=== PATIENT | female | born 1940 | race Caucasian/White ===

== ENCOUNTER 2016-11-05 19:17 | Emergency (ER) | payer MEDICARE ==
[2016-11-05 20:13] LABS: BASOPHILS % (AUTO) 0.4 %; EOSINOPHILS # (AUTO) 0.1 10^3/uL (0.0-0.7); EOSINOPHILS % (AUTO) 0.7 %; HCT - HEMATOCRIT 35.5 % (37.0-47.0); HGB - HEMOGLOBIN 12.1 g/dL (12.0-16.0); LYMPHOCYTES # (AUTO) 1.7 10^3/uL (1.5-3.5); LYMPHOCYTES % (AUTO) 17.6 %; MEAN CORPUSCULAR HEMOGLOBIN 29.5 pg (27.0-31.0); MEAN CORPUSCULAR HGB CONC 34.2 g/dL (32.0-36.0); MEAN CORPUSCULAR VOLUME 86.3 fL (81.0-99.0); MEAN PLATELET VOLUME 9.5 fL (7.9-10.8); MONOCYTES # (AUTO) 0.9 10^3/uL (0.0-1.0); MONOCYTES % (AUTO) 9.4 %; NEUTROPHILS # (AUTO) 6.7 10^3/uL (1.5-6.6); NEUTROPHILS % (AUTO) 71.9 %; RED BLOOD COUNT 4.11 10^6/uL (4.20-5.40); RED CELL DISTRIBUTION WIDTH 13.6 % (12.0-15.0); UNCORRECTED WHITE BLOOD COUNT 9.4 x10^3/uL; WHITE BLOOD COUNT 9.4 x10^3/uL (4.8-10.8)
[2016-11-05 20:19] LABS: CALCIUM 9.5 mg/dL (8.5-10.3); POTASSIUM 4.6 mmol/L (3.5-5.0)
[2016-11-05 20:20] LABS: BILIRUBIN,URINE NEGATIVE (NEGATIVE); PH,URINE 7.5 PH (5.0-7.5)
[2016-11-05 20:21] LABS: UA CHARGE (STRIP ONLY) YES; UR CULTURE IF IND NOT INDICATED
--- NOTE | 2016-11-05 21:06 | ED Physician Documentation ---
PD HPI CHEST PAIN - Stated complaint Stated Complaint: CHEST PX/DENIS - Chief complaint Chief Complaint: Cardiac - History obtained from History obtained from: Patient - History of Present Illness Timing - onset: Enter time (15:00), Today Timing - onset during: Light activity Timing - duration: Hours Timing - details: Gradual onset Pain level now: 8 Quality: Pain Location: Substernal, Left chest Radiation: Back, Other (head) Improved by: Nothing Worsened by: Other (no exacerbating factors) Associated symptoms: Nausea. No: Shortness of air, Vomiting, Palpitations Similar symptoms before: Has not had sx before Recently seen: Not recently seen - Additional information Additional information: 3 PM onset of low back pain, subsequently developed generalized headache and mid /left chest pain. Review of Systems Constitutional: denies: Fever, Chills, Sweats Cardiac: reports: Chest pain / pressure. denies: Palpitations, Pedal edema, Calf pain Respiratory: denies: Dyspnea GI: reports: Abdominal Pain, Nausea. denies: Vomiting : denies: Dysuria, Frequency Neurologic: reports: Headache. denies: Generalized weakness, Focal weakness, Numbness PD PAST MEDICAL HISTORY - Past Medical History Past Medical History: Yes Cardiovascular: Hypertension, High cholesterol, Angina Respiratory: None Neuro: None Endocrine/Autoimmune: None GI: GERD, Ulcers RAILROAD HAND: None : None HEENT: None Psych: None Musculoskeletal: Osteoarthritis Derm: None - Past Surgical History Past Surgical History: Yes General: Cholecystectomy, Hiatal hernia repair Ortho: Knee replacement /RAILROAD HAND: Hysterectomy - Present Medications Home Medications: Ambulatory Orders Medication Instructions Recorded Confirmed Nifedipine [Nifedipine ER] 60 mg PO DAILY 03/12/14 11/05/16 Nitroglycerin [Nitrostat] 0.4 mg SL Q5MIN PRN 03/12/14 11/05/16 Alendronate Sodium 70 mg PO Q7D 11/27/15 11/05/16 Aspirin 81 mg ORAL DAILY 11/05/16 11/05/16 Losartan [Cozaar] 50 mg ORAL DAILY 11/05/16 11/05/16 Mirtazapine 30 mg ORAL QPM 11/05/16 11/05/16 Sucralfate 1 gm PO TID 11/05/16 11/05/16 traMADol [Ultram] 50 mg ORAL TID 11/05/16 11/05/16 - Allergies Allergies/Adverse Reactions: Allergies Allergy/AdvReac Type Severity Reaction Status Date / Time No Known Drug Allergies Allergy Verified 11/05/16 19:22 - Social History Does the pt smoke?: No Smoking Status: Never smoker Does the pt drink ETOH?: No Does the pt have substance abuse?: No - Immunizations Immunizations are current?: Yes - POLST Patient has POLST: No PD ED PE NORMAL - Vitals Vital signs reviewed: Yes - General General: Alert and oriented X 3, Well developed/nourished, Other (appears uncomfortable) - HEENT HEENT: PERRL, EOMI, Moist mucous membranes - Neck Neck: Supple, no meningeal sign, No bony TTP - Cardiac Cardiac: RRR, No murmur - Respiratory Respiratory: No respiratory distress, Clear bilaterally - Abdomen Abdomen: Soft, Non distended - Derm Derm: Normal color, Warm and dry - Neuro Neuro: Alert and oriented X 3, supervisor webbing 2-12 intact, No motor deficit, No sensory deficit, Normal speech PD ED PE EXPANDED - Abdomen Abdomen: Tender to palpation, Periumbilical, Left abdomen. No: Rebound, Guarding Results - Vitals Vitals: Vital Signs - 24 hr 11/05/16 11/05/16 11/05/16 19:21 20:18 20:49 Temperature 36.7 C Heart Rate 76 78 76 Respiratory 14 20 20 Rate Blood Pressure 141/64 H 154/62 H 143/62 H O2 Saturation 100 99 98 11/05/16 11/05/16 11/05/16 21:28 22:35 23:15 Temperature 36.5 C Heart Rate 70 71 61 Respiratory 18 16 20 Rate Blood Pressure 164/64 H 158/65 H 154/67 H O2 Saturation 97 95 98 Oxygen O2 Source Room air - EKG (time done) No standard instances Rate: Rate (enter#) (74) Rhythm: NSR [place]: Normal Intervals: Normal [place] QRS: Normal Ischemia: Normal ST segments - Labs Labs: Laboratory Tests 11/05/16 11/05/16 11/05/16 19:30 19:30 19:30 WBC 9.4 RBC 4.11 L Hgb 12.1 Hct 35.5 L MCV 86.3 MCH 29.5 MCHC 34.2 RDW 13.6 Plt Count 240 MPV 9.5 Neut # 6.7 H Lymph # 1.7 [place] # 0.9 Eos # 0.1 Baso # 0.0 Absolute Nucleated RBC 0.00 Nucleated RBCs 0.0 Sodium 139 Potassium 4.6 Chloride 103 Carbon Dioxide 27 Anion Gap 9.0 BUN 25 H Creatinine 1.0 Estimated GFR (MDRD) 54 L Glucose 147 H Calcium 9.5 Troponin I < 0.04 Urine Color Urine Clarity Urine pH Ur Specific [place] Urine Protein Urine Glucose (UA) Urine Ketones Urine Occult Blood Urine Nitrite Urine Bilirubin Urine Urobilinogen Ur Leukocyte Esterase Ur Microscopic Review Urine Culture Comments 11/05/16 20:10 WBC RBC Hgb Hct MCV MCH MCHC RDW Plt Count MPV Neut # Lymph # [place] # Eos # Baso # Absolute Nucleated RBC Nucleated RBCs Sodium Potassium Chloride Carbon Dioxide Anion Gap BUN Creatinine Estimated GFR (MDRD) Glucose Calcium Troponin I Urine Color YELLOW Urine Clarity CLEAR Urine pH 7.5 Ur Specific [place] 1.010 Urine Protein NEGATIVE Urine Glucose (UA) NEGATIVE Urine Ketones NEGATIVE Urine Occult Blood TRACE-INTA Urine Nitrite NEGATIVE Urine Bilirubin NEGATIVE Urine Urobilinogen 0.2 (NORMAL) Ur Leukocyte Esterase NEGATIVE Ur Microscopic Review NOT INDICATED Urine Culture Comments NOT INDICATED - Rads (name of study) CTH Radiology: Prelim report reviewed, See rad report CT A/P Radiology: Prelim report reviewed, See rad report PD MEDICAL DECISION MAKING - ED course Complexity details: reviewed old records, reviewed results, re-evaluated patient , considered differential, d/w patient, d/w family Departure - Departure Disposition: 01 Home, Self Care Clinical Impression: Abdominal pain, Headache Condition: Good Instructions: ED Abdominal Pain Unkn Cause, ED Cephalgia Unspecified Follow-Up: Suraj Butcher MD [Primary Care Provider] - Within 3 Days Discharge Date/Time: 11/05/16 23:20
[2016-11-05] MEDS ORDERED: HYDROmorphone 1 MG/ML SYRINGE IVP STA (21:17)
[2016-11-05] MEDS ORDERED: HYDROmorphone 1 MG/ML SYRINGE ONE (21:28)
[2016-11-05] MEDS ORDERED: IOPAMIDOL-300 100 ML VIAL IVP ONE (21:53)
--- NOTE | 2016-11-05 22:19 | CT Preliminary Report ---
Exam: CT Abdomen/Pelvis W/ IMPRESSION: 1. Marked diverticulosis. 2. Small hepatic cysts or hemangiomata and other chronic or incidental findings. [facility] SITE ID: [id number]
--- NOTE | 2016-11-05 22:20 | CT Preliminary Report ---
Exam: CT Head W/O IMPRESSION: Generalized age-related cortical atrophic changes without evidence of acute intracranial abnormality. [facility] SITE ID: [id number]
--- NOTE | 2016-11-05 22:22 | CT Report ---
EXAM: CT ABDOMEN AND PELVIS EXAM DATE: 11/05/2016 09:56 PM. CLINICAL HISTORY: Abd. Pain (LLQ). COMPARISONS: 12/09/2015. TECHNIQUE: Routine helical CT imaging was performed through the abdomen and pelvis. IV contrast: 100 cc Isovue-300. Enteric contrast: No. Reconstructions: Coronal and sagittal. In accordance with CT protocol optimization, one or more of the following dose reduction techniques w ere utilized for this exam: automated exposure control, adjustment of mA and/or KV based on patient s ize, or use of iterative reconstructive technique. FINDINGS: Lung Bases: Clear. No effusion. Tiny hiatal hernia. At least three-vessel coronary artery calcificati on. Liver: Multiple small cysts or hemangiomata. Otherwise unremarkable. Gallbladder/Bile Ducts: Absent gallbladder. No ductal dilation. Spleen: Normal. Small accessory spleen. Pancreas: Normal. Adrenal Glands: Normal. Kidneys: Normal. No masses or hydronephrosis. Peritoneal Cavity/Bowel: Marked colonic diverticulosis. Redundant sigmoid colon with no definite evid ence of acute diverticulitis. No localized fluid collection or abscess formation. No free fluid, free air, or lymphadenopathy. The appendix is well visualized and normal. Pelvic Organs: Normal. The bladder and visualized pelvic organs are within normal limits. Vasculature: No aneurysms or other significant abnormality. Bones: No significant abnormality. Other: Calcified injection granulomata in the buttocks. IMPRESSION: 1. Marked diverticulosis. 2. Small hepatic cysts or hemangiomata and other chronic or incidental findings. [facility] Referring Provider Line: [phone] SITE ID: [id number]
--- NOTE | 2016-11-05 22:24 | CT Report ---
EXAM: CT HEAD EXAM DATE: 11/05/2016 09:57 PM. CLINICAL HISTORY: Headache. COMPARISON: None. TECHNIQUE: Multiaxial CT images were obtained from the foramen magnum to the vertex. IV contrast: Non e. Reformats: Coronal. In accordance with CT protocol optimization, one or more of the following dose reduction techniques w ere utilized for this exam: automated exposure control, adjustment of mA and/or KV based on patient s ize, or use of iterative reconstructive technique. FINDINGS: Parenchyma: No intraparenchymal hemorrhage. No evidence of mass, midline shift, or CT findings of acu te infarction. Naylor-white differentiation is distinct. Extraaxial Spaces: Normal for age. No subdural or epidural collections identified. Ventricles: The ventricles and cortical sulci are mildly enlarged, consistent with age-related tissue loss. Sinuses: Imaged paranasal sinuses, orbits, and mastoids show no significant abnormality. Bones: No evidence of fracture or calvarial defect. Other: Diffuse chronic microangiopathic white matter changes are evident. Mild intracranial atheroscl erosis is noted. IMPRESSION: Generalized age-related cortical atrophic changes without evidence of acute intracranial abnormality. [facility] Referring Provider Line: [phone] SITE ID: [id number]
[2016-11-05 23:16] VITALS: BP 154/67
== END 2016-11-05 23:20 | disposition home or self-care (01) ==
LOC: ED 19:17
DX: R51 Headache (principal); R07.9 Chest pain, unspecified; R10.9 Unspecified abdominal pain; I10 Essential (primary) hypertension; E78.00 Pure hypercholesterolemia, unspecified; I20.9 Angina pectoris, unspecified; K21.9 Gastro-esophageal reflux disease without esophagitis; Z87.11 Personal history of peptic ulcer disease; M19.90 Unspecified osteoarthritis, unspecified site; Z79.82 Long term (current) use of aspirin
CPT/HCPCS: 36415; 70450; 74177; 80048; 81003; 84484; 85025; 93005; 96374; 99283; 99284; J1170; Q9967; 81001; 87086

== ENCOUNTER 2017-04-05 07:46 | Emergency (ER) | payer MEDICARE ==
--- NOTE | 2017-04-05 08:12 | ED Physician Documentation ---
History of Present Illness - Stated complaint Stated Complaint: BACK/CHEST PX WEAKNESS - Chief complaint Chief Complaint: Cardiac - Additonal information Additional information: hx from pt through family assisting with translation 77 female hx HTN CAD angina has had chest pain L low ant chest for 2 weeks most of the day every day some associated SOA diaphoresis and nausea mild couhg pain described as burning rad to left shoulder some relief with nitro seen at [facility] ER for similar - states had work up and told it was not her heart also concerned about her ongoing poor appaetitie and not eating well - does not seem she is not eating 2/2 pain or nausea etc - she just isnt hungry - this is an ongoing problem not temporally related to the CP she came to the ER for Review of Systems Constitutional: denies: Fever, Chills Cardiac: reports: Chest pain / pressure Respiratory: reports: Dyspnea, Cough GI: reports: Abdominal Pain (LUQ), Nausea Skin: denies: Rash Musculoskeletal: reports: Back pain (L shoulder). denies: Neck pain Neurologic: reports: Generalized weakness Endocrine: denies: Easy bruising / bleeding Immunocompromised: denies: Immunocompromised PD PAST MEDICAL HISTORY - Past Medical History Cardiovascular: Hypertension, High cholesterol, Angina Respiratory: None Neuro: None Endocrine/Autoimmune: None GI: GERD, Ulcers UNIT MANAGER: None : None HEENT: None Psych: None Musculoskeletal: Osteoarthritis Derm: None - Past Surgical History Past Surgical History: Yes General: Cholecystectomy, Hiatal hernia repair Ortho: Knee replacement /UNIT MANAGER: Hysterectomy - Present Medications Home Medications: Ambulatory Orders Medication Instructions Recorded Confirmed NIFEdipine [Nifedipine ER] 60 mg PO DAILY 03/12/14 11/05/16 Nitroglycerin [Nitrostat] 0.4 mg SL Q5MIN PRN 03/12/14 11/05/16 Alendronate Sodium 70 mg PO Q7D 11/27/15 11/05/16 Aspirin 81 mg ORAL DAILY 11/05/16 11/05/16 Losartan [Cozaar] 50 mg ORAL DAILY 11/05/16 11/05/16 Mirtazapine 30 mg ORAL QPM 11/05/16 11/05/16 Sucralfate 1 gm PO TID 11/05/16 11/05/16 traMADol [Ultram] 50 mg ORAL TID 11/05/16 11/05/16 Benzonatate 100 mg PO Q8HR 04/05/17 Gabapentin 100 mg PO BID 04/05/17 Gabapentin [Neurontin] 100 mg PO TID PRN 04/05/17 Multivitamin/Iron/Folic Acid 1 tab PO DAILY 04/05/17 [Centrum Adults Tablet] Sucralfate 1 gm PO ACHS #120 tablet 04/05/17 raNITIdine [Zantac] 150 mg PO BID #60 tablet 04/05/17 - Allergies Allergies/Adverse Reactions: Allergies Allergy/AdvReac Type Severity Reaction Status Date / Time No Known Drug Allergies Allergy Verified 11/05/16 19:22 - Social History Does the pt smoke?: No Smoking Status: Never smoker Does the pt drink ETOH?: No Does the pt have substance abuse?: No - Immunizations Immunizations are current?: Yes - POLST Patient has POLST: No PD ED PE NORMAL - Vitals Vital signs reviewed: Yes - General General: Alert and oriented X 3 - HEENT HEENT: PERRL - Neck Neck: Supple, no meningeal sign - Cardiac Cardiac: RRR - Respiratory Respiratory: No respiratory distress, Clear bilaterally - Abdomen Abdomen: Soft. No: Non tender (TTP LUQ s rebound or gaurding and no pulsatile mass) - Extremities Extremities: No deformity, Normal ROM s pain, No edema, No calf tenderness / cord - Neuro Neuro: No: Alert and oriented X 3 Results - Vitals Vitals: Vital Signs - 24 hr 04/05/17 04/05/17 04/05/17 07:57 08:36 09:33 Temperature 37.3 C Heart Rate 59 L 56 L 66 Respiratory 12 18 12 Rate Blood Pressure 206/60 H 150/51 H 184/52 H O2 Saturation 96 98 98 04/05/17 04/05/17 04/05/17 10:56 13:07 14:00 Temperature Heart Rate 65 57 L 61 Respiratory 18 15 16 Rate Blood Pressure 181/68 H 151/66 H 163/69 H O2 Saturation 95 97 100 Oxygen O2 Source Room air - EKG (time done) 0759 Rate: Rate (enter#) (57) Rhythm: NSR [place]: Normal Intervals: Normal [place] QRS: Normal Ischemia: Normal ST segments - Labs Labs: Laboratory Tests 04/05/17 04/05/17 04/05/17 08:20 08:20 08:20 WBC 6.4 RBC 3.93 L Hgb 11.4 L Hct 32.5 L MCV 82.6 MCH 28.9 MCHC 35.0 RDW 13.8 Plt Count 214 MPV 8.7 Neut # 4.1 Lymph # 1.6 [place] # 0.6 Eos # 0.1 Baso # 0.0 Absolute Nucleated RBC 0.00 Nucleated RBC % 0.0 Sodium 139 Potassium 4.1 Chloride 101 Carbon Dioxide 27 Anion Gap 11.0 BUN 15 Creatinine 0.6 Estimated GFR (MDRD) 97 Glucose 102 H Calcium 9.1 Total Bilirubin 0.5 AST 19 ALT 13 Alkaline Phosphatase 38 L Troponin I < 0.04 Total Protein 6.6 L Albumin 3.9 Globulin 2.7 Albumin/Globulin Ratio 1.4 Lipase 24 - Rads (name of study) CXR Radiology: See rad report (NACPD) CT AP Radiology: See rad report (no acute - stable pulm nodule, hepatic cysts, comp fx , divertic) PD MEDICAL DECISION MAKING - ED course ED course: reviewed records from recent visit to [facility] 03/29/17 CTPA no PE and no dissection/aneurysm fu swabs neg trop X 1 neg EMP report and EKG not faxed - will call and req more info today neg EKG and trop again - reassuring this is not ACS after > 1 week of discomfort while in ER pt was complaining more of epigastric pain - not relieved by notro or morphine but promptly relieved by GI cocktail and pepcid CTAP no acute so CP X 1-2 weeks with two neg ER cardiac work up makes ACS unlikely CTPA at [facility] showed no PE or dissection no pneumo pna etc on CXR today in ER today pain is more epigastric and relieved with GI meds so this may be GERD CTAP neg will dc with H2B and close PMD and cardio fup anemia noted and not new note - offered use of translating tablet but pt prefers using family Departure - Departure Disposition: 01 Home, Self Care Clinical Impression: GERD (gastroesophageal reflux disease) Qualifiers: Esophagitis presence: with esophagitis Qualified Code(s): K21.0 - Gastro- esophageal reflux disease with esophagitis Condition: Good Instructions: ED GERD Follow-Up: Suraj Butcher MD [Primary Care Provider] - EMMA ZHANG MD [Provider Admit Priv/Credential] - Prescriptions: raNITIdine [Zantac] 150 mg PO BID #60 tablet Sucralfate 1 gm PO ACHS #120 tablet Print Language: Croatian Comments: Your heart checked out fine today - after 2 weeks of symptoms this means a heart attack is very unlikely I reviewed your records from [facility] and the CT scan there did not show a blood clot in your lungs or an aortic aneurysm/tea. The chest xray today was fine - no pneumonia or collapsed lung. Here today your pain seemed to be more over your stomach and got better with stomach acid medications. I suspect the pain is due to gastritic or an ulcer. I think it is safe for you to go home . Please take the medications I prescribed. Follow up with the surgery clinic to discuss getting a scope of your stomach ( you need to call to schedule) And follow up with your social director as well - a stress test to further evaluate your heart might be a good idea Return if worse Discharge Date/Time: 04/05/17 14:21
[2017-04-05 08:31] LABS: BASOPHILS % (AUTO) 0.6 %; EOSINOPHILS # (AUTO) 0.1 10^3/uL (0.0-0.7); EOSINOPHILS % (AUTO) 1.5 %; HGB - HEMOGLOBIN 11.4 g/dL (12.0-16.0); LYMPHOCYTES # (AUTO) 1.6 10^3/uL (1.5-3.5); LYMPHOCYTES % (AUTO) 25.4 %; MEAN CORPUSCULAR HEMOGLOBIN 28.9 pg (27.0-31.0); MEAN CORPUSCULAR VOLUME 82.6 fL (81.0-99.0); MEAN PLATELET VOLUME 8.7 fL (7.9-10.8); MONOCYTES # (AUTO) 0.6 10^3/uL (0.0-1.0); MONOCYTES % (AUTO) 9.3 %; NEUTROPHILS # (AUTO) 4.1 10^3/uL (1.5-6.6); NEUTROPHILS % (AUTO) 63.2 %; PLT - PLATELET COUNT 214 10^3/uL (130-450); RED BLOOD COUNT 3.93 10^6/uL (4.20-5.40); RED CELL DISTRIBUTION WIDTH 13.8 % (12.0-15.0); WHITE BLOOD COUNT 6.4 x10^3/uL (4.8-10.8)
[2017-04-05 08:41] LABS: ALBUMIN 3.9 g/dL (3.2-5.5); ALBUMIN/GLOBULIN RATIO 1.4 (1.0-2.2); BILIRUBIN,TOTAL 0.5 mg/dL (0.2-1.0); CALCIUM 9.1 mg/dL (8.5-10.3); CREATININE 0.6 mg/dL (0.4-1.0); TOTAL PROTEIN 6.6 g/dL (6.7-8.2)
[2017-04-05] MEDS ORDERED: MORPHINE 10 MG/ML VIAL IVP STA (08:48)
[2017-04-05] MEDS ORDERED: ONDANSETRON 4 MG/2 ML VIAL IVP STA (08:48)
[2017-04-05] MEDS ORDERED: NITROGLYCERIN 2% PASTE TOP STA (08:48)
[2017-04-05] MEDS ORDERED: ASPIRIN CHEW 81 MG TABLET PO STA (08:54)
[2017-04-05] MEDS ORDERED: MORPHINE 2 MG/ML CARPUJECT IVP STA (10:07)
[2017-04-05] MEDS ORDERED: LIDOCAINE VISCOUS 2% 15 ML UDC MM STA (10:21)
[2017-04-05] MEDS ORDERED: FAMOTIDINE 20 MG/50 ML 50 ML IV ONE (10:21)
[2017-04-05] MEDS ORDERED: MAG HYDROX/AL HYDROX/SIMETH 30 ML UDC PO STA (10:21)
--- NOTE | 2017-04-05 10:33 | XRAY Report ---
EXAM: CHEST RADIOGRAPHY EXAM DATE: 04/05/2017 08:51 AM. CLINICAL HISTORY: Chest pain. COMPARISON: 01/18/2016. TECHNIQUE: 1 view. FINDINGS: Lungs/Pleura: No focal opacities evident. No pleural effusion. No pneumothorax. Mediastinum: Within exam limitations, the cardiomediastinal contour is normal. Aortic calcification i s consistent with atherosclerotic disease. Other: Mild dextroscoliosis of the thoracic spine. IMPRESSION: No acute cardiopulmonary abnormality. [facility] Referring Provider Line: [phone] SITE ID: [id number]
--- NOTE | 2017-04-05 10:33 | XRAY Preliminary Report ---
Exam: XR CHEST 1 VIEW X-RAY IMPRESSION: No acute cardiopulmonary abnormality. [facility] SITE ID: [id number]
--- NOTE | 2017-04-05 11:30 | CT Preliminary Report ---
Exam: CT ABDOMEN/PELVIS W/O IMPRESSION: 1. Mild bibasilar atelectatic changes with stable noncalcified right middle lobe nodule. 2. Stable hepatic cysts. 3. Scattered diverticulosis without evidence of acute diverticulitis. 4. Moderate bony degenerative changes with stable compression fracture at L2. [facility] SITE ID: [id number]
--- NOTE | 2017-04-05 11:31 | CT Report ---
EXAM: CT ABDOMEN AND PELVIS EXAM DATE: 04/05/2017 10:54 AM. CLINICAL HISTORY: Upper abdominal pain. COMPARISONS: Previous exam of 11/05/2016. TECHNIQUE: Routine helical CT imaging was performed through the abdomen and pelvis. IV contrast: None . Enteric contrast: No. Reconstructions: Coronal and sagittal. In accordance with CT protocol optimization, one or more of the following dose reduction techniques w ere utilized for this exam: automated exposure control, adjustment of mA and/or KV based on patient s ize, or use of iterative reconstructive technique. FINDINGS: Lung Bases: Mild atelectatic changes seen at the lung bases. Stable right middle lobe noncalcified no dule measuring 4.6 mm (image 5 of series 3). Liver: Stable hypoattenuations seen suggestive of cysts. Gallbladder/bile Ducts: Post cholecystectomy changes noted. Spleen: Normal. Pancreas: Normal. Adrenal Glands: Normal. Kidneys: Normal. No masses or hydronephrosis. Peritoneal Cavity/Bowel: Scattered diverticulosis noted without CT evidence of acute diverticulitis. No free fluid, free air or adenopathy. No masses or acute inflammatory process. Appendix is not well seen. Pelvic Organs: Patient is status post CARLO/BSO. Urinary bladder is grossly unremarkable. Vasculature: Calcified atherosclerotic changes seen without evidence of aneurysm present. Bones: Moderate degenerative changes seen, with stable compression fracture involving L2. Other: None. IMPRESSION: 1. Mild bibasilar atelectatic changes with stable noncalcified right middle lobe nodule. 2. Stable hepatic cysts. 3. Scattered diverticulosis without evidence of acute diverticulitis. 4. Moderate bony degenerative changes with stable compression fracture at L2. [facility] Referring Provider Line: [phone] SITE ID: [id number]
[2017-04-05 14:01] VITALS: BP 163/69
== END 2017-04-05 14:21 | disposition home or self-care (01) ==
LOC: ED 07:46
DX: K21.0 Gastro-esophageal reflux disease with esophagitis (principal); I10 Essential (primary) hypertension; I25.119 Atherosclerotic heart disease of native coronary artery with unspecified angina pectoris; E78.00 Pure hypercholesterolemia, unspecified; M19.90 Unspecified osteoarthritis, unspecified site; Z87.11 Personal history of peptic ulcer disease; Z79.82 Long term (current) use of aspirin
CPT/HCPCS: 36415; 71045; 74176; 80053; 83690; 84484; 85025; 93005; 96365; 96366; 96376; 99284; A9270

== ENCOUNTER 2017-06-20 08:03 | Emergency (ER) | payer MEDICARE ==
--- NOTE | 2017-06-20 08:44 | ED Physician Documentation ---
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 Has pain radiate to right lower anterior neck. Pain worse with certain movements of head/neck and with shoulder/chest movements at times. No change with eating but has had less appetite.). No: Sharp, Tearing Location: Substernal Radiation: Neck (right anterior) Improved by: Rest Worsened by: Exertion, Movement. No: Inspiration, Eating, Palpation Associated symptoms: General Weakness. No: Shortness of air, Diaphoresis, Nausea, Feeling faint / dizzy, Palpitations Similar symptoms before: Has not had sx before Recently seen: Emergency Dept ([place] about 2-3 weeks ago with similar and was Rx Sucralfate, which has not really changed symptoms.) Review of Systems Constitutional: denies: Fever, Chills Nose: denies: Rhinorrhea / runny nose, Congestion Throat: denies: Sore throat Cardiac: reports: Chest pain / pressure. denies: Palpitations, Pedal edema, Calf pain Respiratory: denies: Dyspnea, Cough, Wheezing GI: denies: Abdominal Pain, Nausea, Vomiting, Diarrhea : denies: Dysuria Skin: denies: Rash Musculoskeletal: reports: Neck pain. denies: Back pain, Extremity pain Neurologic: reports: Generalized weakness. denies: Focal weakness, Numbness, Near syncope, Confused, Altered mental status, Headache Psychiatric: denies: Insomnia PD PAST MEDICAL HISTORY - Past Medical History Cardiovascular: Hypertension, High cholesterol, Angina Respiratory: None Neuro: None Endocrine/Autoimmune: None GI: GERD, Ulcers SHOP HELPER: None : None HEENT: None Psych: None Musculoskeletal: Osteoarthritis Derm: None - Past Surgical History Past Surgical History: Yes General: Cholecystectomy, Hiatal hernia repair Ortho: Knee replacement /SHOP HELPER: Hysterectomy - Present Medications Home Medications: Ambulatory Orders Medication Instructions Recorded Confirmed NIFEdipine [Nifedipine ER] 60 mg PO DAILY 03/12/14 11/05/16 Nitroglycerin [Nitrostat] 0.4 mg SL Q5MIN PRN 03/12/14 11/05/16 Alendronate Sodium 70 mg PO Q7D 11/27/15 11/05/16 Aspirin 81 mg ORAL DAILY 11/05/16 11/05/16 Losartan [Cozaar] 50 mg ORAL DAILY 11/05/16 11/05/16 Mirtazapine 30 mg ORAL QPM 11/05/16 11/05/16 Sucralfate 1 gm PO TID 11/05/16 11/05/16 traMADol [Ultram] 50 mg ORAL TID 11/05/16 11/05/16 Benzonatate 100 mg PO Q8HR 04/05/17 Gabapentin 100 mg PO BID 04/05/17 Gabapentin [Neurontin] 100 mg PO TID PRN 04/05/17 Multivitamin/Iron/Folic Acid 1 tab PO DAILY 04/05/17 [Centrum Adults Tablet] Sucralfate 1 gm PO ACHS #120 tablet 04/05/17 raNITIdine [Zantac] 150 mg PO BID #60 tablet 04/05/17 HYDROcod/ACETAM 5/325 [[place] 5/325] 1 tab PO Q6H PRN #20 tablet 06/20/17 Ondansetron HCl [Zofran] 4 mg PO Q6H PRN #20 tablet 06/20/17 Pantoprazole Sodium 40 mg PO DAILY #30 tablet. 06/20/17 - Allergies Allergies/Adverse Reactions: Allergies Allergy/AdvReac Type Severity Reaction Status Date / Time No Known Drug Allergies Allergy Verified 06/20/17 12:14 - Social History Does the pt smoke?: No Smoking Status: Never smoker Does the pt drink ETOH?: No Does the pt have substance abuse?: No - Family History Family history: reports: Non contributory - Immunizations Immunizations are current?: Yes - POLST Patient has POLST: No PD ED PE NORMAL - Vitals Vital signs reviewed: Yes - General General: Alert and oriented X 3, Well developed/nourished, Other (appears in pain with chest and hurting more with ROM of the neck and chest/shoulder movement. Some tenderness of the chest wall and right lower SCM muscle. ) - HEENT HEENT: Atraumatic, Pharynx benign - Neck Neck: Supple, no meningeal sign, No adenopathy, No JVD, No bruit - Cardiac Cardiac: RRR, No murmur, No rub - Respiratory Respiratory: Clear bilaterally - Abdomen Abdomen: Normal bowel sounds, Soft, Non distended, No organomegaly, Other (mild tenderness epigastric area) - Female Female : Deferred - Rectal Rectal: Deferred - Back Back: No CVA TTP, No spinal TTP - Derm Derm: Normal color, Warm and dry, No rash - Extremities Extremities: No deformity, No tenderness to palpate, Normal ROM s pain, No edema , No calf tenderness / cord - Neuro Neuro: Alert and oriented X 3, No motor deficit, Normal speech Results - Vitals Vitals: Oxygen O2 Source Room air - EKG (time done) 08:10 Rate: Rate (enter#) (76) Rhythm: NSR [place]: Normal Intervals: Normal [place] QRS: Normal Ischemia: Normal ST segments. No: ST elevation c/w ischemia, ST depression Compare to prior EKG: Old EKG unavailable - Labs Labs: Laboratory Tests 06/20/17 06/20/17 06/20/17 08:15 08:15 08:15 WBC 5.5 RBC 4.14 L Hgb 12.1 Hct 35.4 L MCV 85.6 MCH 29.4 MCHC 34.3 RDW 13.2 Plt Count 206 MPV 9.7 Neut # 3.5 Lymph # 1.4 L [place] # 0.5 Eos # 0.1 Baso # 0.0 Absolute Nucleated RBC 0.00 Nucleated RBC % 0.0 D-Dimer Sodium 139 Potassium 3.9 Chloride 105 Carbon Dioxide 25 Anion Gap 9.0 BUN 15 Creatinine 0.6 Estimated GFR (MDRD) 97 Glucose 112 H Calcium 9.2 Total Bilirubin 0.5 AST 24 ALT 19 Alkaline Phosphatase 53 Troponin I < 0.04 B-Natriuretic Peptide Total Protein 7.7 Albumin 4.4 Globulin 3.3 Albumin/Globulin Ratio 1.3 Lipase 32 06/20/17 06/20/17 08:15 08:15 WBC RBC Hgb Hct MCV MCH MCHC RDW Plt Count MPV Neut # Lymph # [place] # Eos # Baso # Absolute Nucleated RBC Nucleated RBC % D-Dimer 264.2 H Sodium Potassium Chloride Carbon Dioxide Anion Gap BUN Creatinine Estimated GFR (MDRD) Glucose Calcium Total Bilirubin AST ALT Alkaline Phosphatase Troponin I B-Natriuretic Peptide 147 H Total Protein Albumin Globulin Albumin/Globulin Ratio Lipase - Rads (name of study) chest xray Radiology: Prelim report reviewed (no acute process) chest and abd angio Radiology: Prelim report reviewed (no vascular process. No other acute process for the pain. ) PD MEDICAL DECISION MAKING - ED course Complexity details: reviewed results, re-evaluated patient (minimal change with GI cocktail; pain lessened with IV pain meds. Still hurts to chest and right side of neck, increased with ROM of the neck and chest, so may be musculoskeletal. Normal labs, CXR, ECG and Chest/abd CTs.), considered differential, d/w patient Departure - Departure Disposition: Home, Self Care Clinical Impression: Chest pain Qualifiers: Chest pain type: precordial pain Qualified Code(s): R07.2 - Precordial pain Condition: Stable Record reviewed to determine appropriate education?: Yes Instructions: ED Chest Pain Atypical Unkn Cause, ED PUD Vs Gastritis Prescriptions: HYDROcod/ACETAM 5/325 [[place] 5/325] 1 tab PO Q6H PRN #20 tablet PRN Reason: Pain Ondansetron HCl [Zofran] 4 mg PO Q6H PRN #20 tablet PRN Reason: Nausea / Vomiting Pantoprazole Sodium 40 mg PO DAILY #30 tablet. Print Language: Turkish Comments: There is no sign of heart disease, vascular problems such as clots aneurysms or dissections, obvious lung problems or heart failure based on your blood and x- ray tests. You obviously are having pain and that has a reason, just not obvious based on the tests here. Things that will not show on the tests we have done would be musculoskeletal pain and also stomach and esophageal pain among others. 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 You can use ondansetron if needed for nausea and hydrocodone for pain. Follow-up with your primary care in the next week or so. Return if worsening. Discharge Date/Time: 06/20/17 13:37
[2017-06-20] MEDS ORDERED: ONDANSETRON 4 MG/2 ML VIAL IVP STA (09:10)
[2017-06-20] MEDS ORDERED: MAG HYDROX/AL HYDROX/SIMETH 30 ML UDC PO STA (09:10)
[2017-06-20] MEDS ORDERED: LIDOCAINE VISCOUS 2% 15 ML UDC MM STA (09:10)
[2017-06-20] MEDS ORDERED: HYDROmorphone 1 MG/ML CARPUJECT IVP STA ×2 (09:10→10:29)
[2017-06-20] MEDS ORDERED: SODIUM CHLORIDE 0.9% 500 ML IV ONE (09:11)
[2017-06-20 09:22] LABS: BASOPHILS % (AUTO) 0.4 %; EOSINOPHILS # (AUTO) 0.1 10^3/uL (0.0-0.7); EOSINOPHILS % (AUTO) 1.6 %; HGB - HEMOGLOBIN 12.1 g/dL (12.0-16.0); LYMPHOCYTES # (AUTO) 1.4 10^3/uL (1.5-3.5); LYMPHOCYTES % (AUTO) 25.9 %; MEAN CORPUSCULAR HEMOGLOBIN 29.4 pg (27.0-31.0); MEAN CORPUSCULAR HGB CONC 34.3 g/dL (32.0-36.0); MEAN CORPUSCULAR VOLUME 85.6 fL (81.0-99.0); MEAN PLATELET VOLUME 9.7 fL (7.9-10.8); MONOCYTES # (AUTO) 0.5 10^3/uL (0.0-1.0); MONOCYTES % (AUTO) 8.6 %; NEUTROPHILS # (AUTO) 3.5 10^3/uL (1.5-6.6); NEUTROPHILS % (AUTO) 63.5 %; PLT - PLATELET COUNT 206 10^3/uL (130-450); RED BLOOD COUNT 4.14 10^6/uL (4.20-5.40); RED CELL DISTRIBUTION WIDTH 13.2 % (12.0-15.0); WHITE BLOOD COUNT 5.5 x10^3/uL (4.8-10.8)
[2017-06-20 09:30] LABS: ALBUMIN 4.4 g/dL (3.2-5.5); ALBUMIN/GLOBULIN RATIO 1.3 (1.0-2.2); BILIRUBIN,TOTAL 0.5 mg/dL (0.2-1.0); CALCIUM 9.2 mg/dL (8.5-10.3); CREATININE 0.6 mg/dL (0.4-1.0); TOTAL PROTEIN 7.7 g/dL (6.7-8.2)
--- NOTE | 2017-06-20 10:14 | XRAY Preliminary Report ---
Exam: XR CHEST 2 VIEW X-RAY IMPRESSION: 1. No acute cardiopulmonary abnormality. 2. Small sclerotic lesion in the left humeral head is statistically likely a bone island in the absen ce of known malignancy, though not included on prior exams [id number]. [facility] SITE ID: [id number]
--- NOTE | 2017-06-20 10:24 | XRAY Report ---
EXAM: CHEST RADIOGRAPHY EXAM DATE: 06/20/2017 09:38 AM. CLINICAL HISTORY: Chest pain left sided. COMPARISON: 04/05/2017, 01/18/2016 and 06/14/2012. TECHNIQUE: 2 views. FINDINGS: Lungs/Pleura: No focal opacities evident. No pleural effusion. No pneumothorax. Normal volumes. Mediastinum: Heart and mediastinal contours are stable. Mild prominence of the right upper mediastina l contour likely related to vasculature and stable over multiple prior exams. Other: Small sclerotic lesion within the left humeral head, not included on prior exams, statisticall y likely a bone island. Compression fracture of the upper lumbar spine noted, similar to remote 2013 exam. IMPRESSION: 1. No acute cardiopulmonary abnormality. 2. Small sclerotic lesion in the left humeral head is statistically likely a bone island in the absen ce of known malignancy, though not included on prior exams [id number]. [facility] Referring Provider Line: [phone] SITE ID: [id number]
[2017-06-20] MEDS ORDERED: IOPAMIDOL-300 100 ML VIAL ONE (10:45)
[2017-06-20] MEDS ORDERED: IOPAMIDOL-300 100 ML VIAL IVP ONE (11:03)
--- NOTE | 2017-06-20 11:36 | CT Preliminary Report ---
Exam: CT CHEST ANGIO (AORTA) IMPRESSION: 1. No aortic aneurysm or dissection. No convincing acute thoracic or abdominopelvic process. 2. Stable 5 mm right middle lobe nodule. Consider 12 month follow-up chest CT to demonstrate continue d stability. 3. Thyroid nodules. Ultrasound correlation recommended. 4. Other findings as noted above. [facility] SITE ID: [id number]
--- NOTE | 2017-06-20 11:37 | CT Report ---
EXAM: CT ANGIOGRAM CHEST, ABDOMEN AND PELVIS EXAM DATE: 06/20/2017 11:03 AM. CLINICAL HISTORY: Chest pain to back and up to right neck for days. COMPARISONS: CT abdomen/pelvis 11/05/2016. TECHNIQUE: Routine axial helical CT angiographic imaging was performed through the chest, abdomen, and pelvis. I V Contrast: 100 cc Isovue-300. Reconstructions: Coronal, sagittal, and 3D MIP reconstructions of the aorta. In accordance with CT protocol optimization, one or more of the following dose reduction techniques w ere utilized for this exam: automated exposure control, adjustment of mA and/or KV based on patient s ize, or use of iterative reconstructive technique. FINDINGS: Vascular Structures: There is mild scattered atherosclerotic plaquing of the aorta and iliac arteries .. There is associated mild origin stenosis of the celiac artery and SMA. No aneurysm or dissection o f the thoracic aorta, abdominal aorta, or iliac arteries. The visualized pulmonary, mesenteric, and s olid organ vascular structures are also otherwise within normal limits. 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 Lungs/Pleura: Stable 5 mm RML nodule (5/30) since at least 11/05/2016. Mild dependent atelectasis. Nori ngs are otherwise clear. Mediastinum: Mild cardiomegaly with left atrial enlargement. No pericardial effusion. Coronary artery calcifications are present. Abdominal Organs: Grossly stable small discrete left hepatic lobe hypodensities, suggestive of cysts on a prior contrast examination. Gallbladder is absent. Stable mild prominence of the common bile lucía t. Pancreas, spleen, bilateral adrenal glands, and bilateral kidneys are unremarkable. Peritoneal Cavity: Diverticulosis. No free fluid, free air, or acute inflammatory process. Pelvic Organs: Uterus is absent. Urinary bladder is unremarkable. Bones: Stable moderate chronic compression deformity of L2. No acute fracture or suspicious bony lesi on. Other: Thyroid nodules. IMPRESSION: 1. No aortic aneurysm or dissection. No convincing acute thoracic or abdominopelvic process. 2. Stable 5 mm right middle lobe nodule. Consider 12 month follow-up chest CT to demonstrate continue d stability. 3. Thyroid nodules. Ultrasound correlation recommended. 4. Other findings as noted above. [facility] Referring Provider Line: [phone] SITE ID: [id number]
[2017-06-20 13:15] VITALS: BP 135/72
== END 2017-06-20 13:37 | disposition home or self-care (01) ==
LOC: ED 08:03
DX: R07.2 Precordial pain (principal); I10 Essential (primary) hypertension; E78.00 Pure hypercholesterolemia, unspecified; Z96.659 Presence of unspecified artificial knee joint
CPT/HCPCS: 36415; 71046; 71275; 74174; 80053; 83690; 83880; 84484; 85025; 85379; 93005; 96361; 96374; 96375; 96376; 99283; 99285; A9270; J1170; Q9967

== ENCOUNTER 2017-08-17 13:26 | Outpatient (CLI) | payer MEDICARE | END 2017-08-17 13:27 | disposition critical access hospital (66) | LOC: EMS 13:26 | PROVIDERS: ATTEND Surgery | DX: R51 Headache (principal) | CPT/HCPCS: A0425; A0429 ==

== ENCOUNTER 2017-08-17 13:35 | Emergency (ER) | payer MEDICARE ==
--- NOTE | 2017-08-17 14:16 | ED Physician Documentation ---
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 Also with some posterior headache today. No injury nor fall.) Timing - onset during: Rest Timing - details: Gradual onset, Still present, Waxing and waning Worst headache ever?: No: Worst headache ever? Location: Back Quality: Throbbing, Aching Associated symptoms: Nausea. No: Fever, Stiff neck, Vomiting, Weakness, Numbness Improved by: No: Rest Contributing factors: No: Recent illness, Trauma Similar symptoms before: No diagnosis, Has not had sx before Recently seen: Not recently seen Review of Systems Constitutional: denies: Fever Nose: denies: Rhinorrhea / runny nose, Congestion Cardiac: reports: Chest pain / pressure. denies: Palpitations Respiratory: denies: Cough GI: reports: Abdominal Pain (upper), Nausea. denies: Vomiting, Diarrhea, Bloody / black stool : denies: Dysuria Musculoskeletal: reports: Neck pain. denies: Back pain Neurologic: reports: Generalized weakness, Headache. denies: Focal weakness, Numbness, Head injury PD PAST MEDICAL HISTORY - Past Medical History Cardiovascular: Hypertension, High cholesterol, Angina Respiratory: None Endocrine/Autoimmune: None GI: GERD, Ulcers LIVESTOCK COUNTER: None : None HEENT: None Psych: None Musculoskeletal: Osteoarthritis Derm: None - Past Surgical History Past Surgical History: Yes General: Cholecystectomy, Hiatal hernia repair Ortho: Knee replacement /LIVESTOCK COUNTER: Hysterectomy - Present Medications Home Medications: Ambulatory Orders Medication Instructions Recorded Confirmed NIFEdipine [Nifedipine ER] 60 mg PO DAILY 03/12/14 11/05/16 Nitroglycerin [Nitrostat] 0.4 mg SL Q5MIN PRN 03/12/14 11/05/16 Alendronate Sodium 70 mg PO Q7D 11/27/15 11/05/16 Aspirin 81 mg ORAL DAILY 11/05/16 11/05/16 Losartan [Cozaar] 50 mg ORAL DAILY 11/05/16 11/05/16 Mirtazapine 30 mg ORAL QPM 11/05/16 11/05/16 Sucralfate 1 gm PO TID 11/05/16 11/05/16 traMADol [Ultram] 50 mg ORAL TID 11/05/16 11/05/16 Benzonatate 100 mg PO Q8HR 04/05/17 Gabapentin 100 mg PO BID 04/05/17 Gabapentin [Neurontin] 100 mg PO TID PRN 04/05/17 Multivitamin/Iron/Folic Acid 1 tab PO DAILY 04/05/17 [Centrum Adults Tablet] Sucralfate 1 gm PO ACHS #120 tablet 04/05/17 raNITIdine [Zantac] 150 mg PO BID #60 tablet 04/05/17 HYDROcod/ACETAM 5/325 [[place] 5/325] 1 tab PO Q6H PRN #20 tablet 06/20/17 Ondansetron HCl [Zofran] 4 mg PO Q6H PRN #20 tablet 06/20/17 Pantoprazole Sodium 40 mg PO DAILY #30 tablet. 06/20/17 Lidocaine Viscous 2% [Xylocaine 5 ml PO Q4H PRN #1 bottle 08/17/17 Viscous 2%] Tramadol HCl 50 mg PO Q6H PRN #20 tablet 08/17/17 - Allergies Allergies/Adverse Reactions: Allergies Allergy/AdvReac Type Severity Reaction Status Date / Time No Known Drug Allergies Allergy Verified 08/17/17 13:54 - Social History Does the pt smoke?: No Smoking Status: Never smoker Does the pt drink ETOH?: No Does the pt have substance abuse?: No - Immunizations Immunizations are current?: Yes - POLST Patient has POLST: No PD ED PE NORMAL - Vitals Vital signs reviewed: Yes - General General: Alert and oriented X 3, No acute distress (but looks like she does not feel well, low animation. ), Well developed/nourished - HEENT HEENT: Ears normal, Pharynx benign - Neck Neck: Supple, no meningeal sign, No adenopathy - Cardiac Cardiac: RRR, No murmur - Respiratory Respiratory: Clear bilaterally - Abdomen Abdomen: Normal bowel sounds, Soft, Non distended, No organomegaly, Other (some epigastric tenderness with guarding. ) - Rectal Rectal: Deferred - Back Back: No CVA TTP, No spinal TTP - Derm Derm: Normal color, Warm and dry - Extremities Extremities: No deformity, No tenderness to palpate, No edema, No calf tenderness / cord - Neuro Neuro: Alert and oriented X 3, No motor deficit, Normal speech Results - Vitals Vitals: Vital Signs - 24 hr 08/17/17 08/17/17 08/17/17 13:45 15:13 16:56 Temperature 36.5 C Heart Rate 70 86 71 Respiratory 20 18 18 Rate Blood Pressure 114/59 L 121/58 L 151/72 H O2 Saturation 99 98 98 Oxygen O2 Source Room air - EKG (time done) 13:54 Rate: Rate (enter#) (63) Rhythm: NSR [place]: Normal Intervals: Normal [place] QRS: Normal Ischemia: Normal ST segments. No: ST elevation c/w ischemia, ST depression Compare to prior EKG: Unchanged from prior EKG - Labs Labs: Laboratory Tests 08/17/17 08/17/17 08/17/17 14:11 14:11 14:11 WBC 4.1 L RBC 4.20 Hgb 12.3 Hct 37.0 MCV 88.1 MCH 29.3 MCHC 33.2 RDW 13.4 Plt Count 223 MPV 9.5 Neut # (Auto) 2.4 Lymph # (Auto) 1.1 L [place] # (Auto) 0.5 Eos # (Auto) 0.1 Baso # (Auto) 0.0 Absolute Nucleated RBC 0.00 Nucleated RBC % 0.0 Sodium 139 Potassium 4.4 Chloride 104 Carbon Dioxide 27 Anion Gap 8.0 BUN 27 H Creatinine 1.1 H Estimated GFR (MDRD) 48 L Glucose 128 H Calcium 9.3 Total Bilirubin 0.7 AST 21 ALT 15 Alkaline Phosphatase 54 Troponin I < 0.04 Total Protein 7.1 Albumin 3.9 Globulin 3.2 Albumin/Globulin Ratio 1.2 Lipase 25 - Rads (name of study) head CT Radiology: Prelim report reviewed (normal study) PD MEDICAL DECISION MAKING - ED course Complexity details: reviewed old records (prior visits for chest and abd pains. No significant prior findings. Meds targeted mostly at gastritis. ), reviewed results, considered differential (seems epigastric pain and tenderness, will target meds to that. Headache without focal findings. CT is okay. ), d/w patient - Sepsis Event Vital Signs: Vital Signs - 24 hr 08/17/17 08/17/17 08/17/17 13:45 15:13 16:56 Temperature 36.5 C Heart Rate 70 86 71 Respiratory 20 18 18 Rate Blood Pressure 114/59 L 121/58 L 151/72 H O2 Saturation 99 98 98 Oxygen O2 Source Room air Departure - Departure Disposition: 01 Home, Self Care Clinical Impression: Upper abdominal pain Headache Qualifiers: Headache type: unspecified Headache chronicity pattern: acute headache Intractability: not intractable Qualified Code(s): R51 - Headache Condition: Stable Record reviewed to determine appropriate education?: Yes Instructions: ED Cephalgia Unspecified, ED Epigastric Pain [facility] Prescriptions: Lidocaine Viscous 2% [Xylocaine Viscous 2%] 5 ml PO Q4H PRN #1 bottle PRN Reason: Pain Tramadol HCl 50 mg PO Q6H PRN #20 tablet PRN Reason: Pain Print Language: Mexican Comments: For the upper stomach/chest pain, you can use antacids such as Mylanta and add lidocaine with it as directed if needed. For the headache or the stomach pain, you can use Tylenol 325 mg 4 times daily, and add tramadol if needed for pains. Follow-up with your primary care. Continue other usual medicines. Discharge Date/Time: 08/17/17 18:28
[2017-08-17 14:24] LABS: BASOPHILS % (AUTO) 0.5 %; EOSINOPHILS # (AUTO) 0.1 10^3/uL (0.0-0.7); EOSINOPHILS % (AUTO) 1.6 %; HGB - HEMOGLOBIN 12.3 g/dL (12.0-16.0); LYMPHOCYTES # (AUTO) 1.1 10^3/uL (1.5-3.5); LYMPHOCYTES % (AUTO) 27.7 %; MEAN CORPUSCULAR HEMOGLOBIN 29.3 pg (27.0-31.0); MEAN CORPUSCULAR HGB CONC 33.2 g/dL (32.0-36.0); MEAN CORPUSCULAR VOLUME 88.1 fL (81.0-99.0); MEAN PLATELET VOLUME 9.5 fL (7.9-10.8); MONOCYTES # (AUTO) 0.5 10^3/uL (0.0-1.0); MONOCYTES % (AUTO) 11.9 %; NEUTROPHILS # (AUTO) 2.4 10^3/uL (1.5-6.6); NEUTROPHILS % (AUTO) 58.3 %; PLT - PLATELET COUNT 223 10^3/uL (130-450); RED CELL DISTRIBUTION WIDTH 13.4 % (12.0-15.0); WHITE BLOOD COUNT 4.1 x10^3/uL (4.8-10.8)
[2017-08-17 14:39] LABS: ALBUMIN 3.9 g/dL (3.2-5.5); ALBUMIN/GLOBULIN RATIO 1.2 (1.0-2.2); BILIRUBIN,TOTAL 0.7 mg/dL (0.2-1.0); CALCIUM 9.3 mg/dL (8.5-10.3); CREATININE 1.1 mg/dL (0.4-1.0); TOTAL PROTEIN 7.1 g/dL (6.7-8.2)
[2017-08-17] MEDS ORDERED: MORPHINE 2 MG/ML SYRINGE IVP STA (14:53)
[2017-08-17] MEDS ORDERED: ONDANSETRON 4 MG/2 ML VIAL IVP STA (14:53)
[2017-08-17] MEDS ORDERED: MAG HYDROX/AL HYDROX/SIMETH 30 ML UDC PO STA (14:53)
[2017-08-17] MEDS ORDERED: LIDOCAINE VISCOUS 2% 15 ML UDC MM STA (14:53)
[2017-08-17] MEDS ORDERED: MORPHINE 10 MG/ML VIAL IVP STA (15:52)
[2017-08-17] MEDS ORDERED: FAMOTIDINE 20 MG/50 ML 50 ML IV ONE (15:52)
[2017-08-17] MEDS ORDERED: SUCRALFATE 1 GM/10 ML UDC PO STA (15:52)
[2017-08-17 17:00] VITALS: BP 151/72
--- NOTE | 2017-08-17 17:09 | CT Report ---
EXAM: CT HEAD EXAM DATE: 08/17/2017 04:37 PM. CLINICAL HISTORY: Headache today. COMPARISON: 11/05/2016. TECHNIQUE: Multiaxial CT images were obtained from the foramen magnum to the vertex. Reformats: Coron al. IV contrast: None. In accordance with CT protocol optimization, one or more of the following dose reduction techniques w ere utilized for this exam: automated exposure control, adjustment of mA and/or KV based on patient s ize, or use of iterative reconstructive technique. FINDINGS: Parenchyma: Mild patchy hypodensity in the bilateral cerebral white matter, as before, consistent wit h chronic small vessel ischemic change. No new low or high-density lesions. No mass effect. Naylor-whit e differentiation is intact. Extraaxial Spaces: Normal for age. No subdural or epidural collections identified. Ventricles: Normal in size and position. Sinuses and Orbits: Bilateral cataract surgery. Visualized paranasal sinuses are clear as are mastoid s and middle ears. Bones: There is a 12 mm diskoid lucent focus at the superficial aspect of the left parietal calvarium without cortical disruption, non-aggressive in appearance, unchanged. No other distinct lucent or sc lerotic lesions. Other: Mild calcification in bilateral cavernous internal carotid arteries. IMPRESSION: 1. No intracranial hemorrhage, mass effect, or hydrocephalus. 2. Mild chronic small vessel ischemic change in the bilateral cerebral white matter, as before. [facility] Referring Provider Line: [phone] SITE ID: [id number]
== END 2017-08-17 18:28 | disposition home or self-care (01) ==
LOC: EDUNIT# → ED 13:35
DX: R10.13 Epigastric pain (principal); I10 Essential (primary) hypertension; E78.00 Pure hypercholesterolemia, unspecified; Z96.659 Presence of unspecified artificial knee joint; Z79.82 Long term (current) use of aspirin
CPT/HCPCS: 36415; 70450; 80053; 83690; 84484; 85025; 93005; 96365; 96375; 96376; 99283; A9270; J2270

== ENCOUNTER 2018-04-17 23:57 | Inpatient (IN) | payer MEDICARE ==
[2018-04-18] MEDS ORDERED: MAG HYDROX/AL HYDROX/SIMETH 30 ML UDC PO STA (00:19)
[2018-04-18] MEDS ORDERED: LIDOCAINE VISCOUS 2% 15 ML UDC MM STA (00:19)
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
[2018-04-18] MEDS ORDERED: ONDANSETRON 4 MG/2 ML VIAL IVP STA (00:39)
[2018-04-18] MEDS ORDERED: HYDROmorphone 1 MG/ML CARPUJECT IVP STA ×2 (00:39→02:17)
[2018-04-18 00:41] LABS: BASOPHILS % (AUTO) 0.6 %; EOSINOPHILS # (AUTO) 0.1 10^3/uL (0.0-0.7); EOSINOPHILS % (AUTO) 1.3 %; HGB - HEMOGLOBIN 12.6 g/dL (12.0-16.0); LYMPHOCYTES # (AUTO) 1.7 10^3/uL (1.5-3.5); LYMPHOCYTES % (AUTO) 24.9 %; MEAN CORPUSCULAR HEMOGLOBIN 28.8 pg (27.0-31.0); MEAN CORPUSCULAR HGB CONC 33.3 g/dL (32.0-36.0); MEAN CORPUSCULAR VOLUME 86.5 fL (81.0-99.0); MEAN PLATELET VOLUME 9.3 fL (7.9-10.8); MONOCYTES # (AUTO) 0.7 10^3/uL (0.0-1.0); MONOCYTES % (AUTO) 10.5 %; NEUTROPHILS # (AUTO) 4.3 10^3/uL (1.5-6.6); NEUTROPHILS % (AUTO) 62.7 %; PLT - PLATELET COUNT 231 10^3/uL (130-450); RED BLOOD COUNT 4.37 10^6/uL (4.20-5.40); WHITE BLOOD COUNT 6.8 x10^3/uL (4.8-10.8)
[2018-04-18 00:51] LABS: ALBUMIN 4.4 g/dL (3.2-5.5); ALBUMIN/GLOBULIN RATIO 1.3 (1.0-2.2); BILIRUBIN,TOTAL 0.6 mg/dL (0.2-1.0); CALCIUM 9.3 mg/dL (8.5-10.3); CREATININE 1.2 mg/dL (0.4-1.0); TOTAL PROTEIN 7.7 g/dL (6.7-8.2)
[2018-04-18] MEDS ORDERED: IOVERSOL 320 100 ML VIAL IVP ONE ×3 (01:36→02:06)
--- NOTE | 2018-04-18 02:28 | CT Report ---
Reason: severe epigastric pain Procedure Date: 04/18/2018 Accession Number: [id number] / [id number] Procedure: CT - Abdomen/Pelvis W/ CPT Code: FULL RESULT: EXAM: CT ABDOMEN AND PELVIS EXAM DATE: 04/18/2018 01:50 AM. CLINICAL HISTORY: Abdominal pain for 2 months, severe worsening today. COMPARISONS: ABDOMEN/PELVIS W/O 04/05/2017 10:48 AM ABDOMEN/PELVIS W/ 11/05/2016 9:42 PM ABD/PEL 11/05/2006 10:21 AM. TECHNIQUE: Routine helical CT imaging was performed through the abdomen and pelvis. IV contrast: 60 mL Optiray 320.. Enteric contrast: No. Reconstructions: Coronal and sagittal. In accordance with CT protocol optimization, one or more of the following dose reduction techniques were utilized for this exam: automated exposure control, adjustment of mA and/or KV based on patient size, or use of iterative reconstructive technique. FINDINGS: ABDOMEN: Liver: Small cyst within the left hepatic lobe, segment II. Stomach/Distal Esophagus: Moderate to severely dilated portion of the stomach with fluid and gas. No santos duodenal obstruction visualized on this examination at this time. The gastric distention could be due to a recent ingestion of a large quantity of fluid. Correlation with history is needed. Gallbladder: Prior cholecystectomy. Bile Ducts: Moderate intrahepatic and extrahepatic biliary dilation. The CBD measures up to 14 mm (image 27 series 5). There is some tapering of the distal CBD. Pancreas: No significant abnormality. Spleen: No significant abnormality. Kidneys: No suspicious solid appearing lesion. No hydronephrosis. Adrenals: No significant abnormality. Bowel: Moderate to severely dilated segment of small bowel is present within the abdomen with transition points along the proximal and distal extent. The proximal transition point is within the central upper abdomen (image 41 series 3). The distal transition point is within the upper pelvis, near the sacral promontory (image 29 series 5). There is edema within the mesentery surrounding the dilated small bowel loops. Maximum small bowel diameter measures 3.5 cm (image 42 series3). Distalmost small bowel loops within the right lower quadrant are decompressed. There is short segment wall thickening of the dilated distal small bowel loops within the pelvis (image [id number]). There is moderate to severe sigmoid diverticulosis. Descending colon is predominately decompressed. Average retained fecal matter within the right hemicolon and the transverse colon. Appendix: The appendix could not be identified with certainty. However, there are no secondary signs of appendicitis demonstrated at this time. Lymph Nodes: No pathologically enlarged nodes. Vasculature: Normal caliber aorta. There is moderate to severe aortic and branch vessel atherosclerosis. Fluid: No significant free fluid. Abdominal Wall: No significant abnormality. Other: No significant abnormality. PELVIS: Uterus and Ovaries: Surgically absent uterus. Ovaries are not visualized, possibly surgically absent as well. Bladder: No significant abnormality. Lymph Nodes: No pathologically enlarged nodes. Fluid: No significant free fluid. Other: None. BONES: No suspicious bony lesions. However, bones are at least moderately osteopenic. This reduces exam sensitivity and specificity for detection of subtle bony lesions and/or fractures. There is moderate multilevel degenerative change within the spine. Stable moderate anterior/inferior endplate compression fracture of L2. Multilevel degenerative changes within the spine. LOWER CHEST: No significant consolidation or effusion. There is a solid noncalcified right middle lobe nodule measuring 5 mm. This is similar to the prior study. This is indeterminate and difficult to characterize. Stability favors a benign etiology. IMPRESSION: 1. Mild to moderately dilated segment of small bowel within the lower and mid abdomen. Transition points are present proximally and distally. There is edema around the dilated small bowel loops. This is worrisome for a closed loop bowel obstruction. 2. Moderate to severely dilated portion of the stomach. There is also esophageal distention with gastroesophageal reflux. No santos duodenal obstruction visualized. This could be due to gastroparesis, recent ingestion of a large quantity of liquid, or occult gastric outlet obstruction. 3. Stable since 11/05/2016, is a solid 8 x 5.7 mm right middle lobe nodule. Short-term stability favors a benign etiology. Attention on follow-up examination recommended. RADIA
[2018-04-18] MEDS ORDERED: LIDOCAINE JELLY 2% 5 ML TUBE TOP STA (02:32)
[2018-04-18] MEDS ORDERED: SODIUM CHLORIDE 0.9% 1,000 ML IV ONE (03:12)
[2018-04-18 03:19] LABS: BILIRUBIN,URINE NEGATIVE (NEGATIVE); GLUCOSE, URINE (UA) NEGATIVE (NEGATIVE); KETONES,URINE (UA) NEGATIVE (NEGATIVE); LEUKOCYTE ESTERASE, URINE NEGATIVE (NEGATIVE); NITRITE,URINE NEGATIVE (NEGATIVE); OCCULT BLOOD,URINE TRACE-INTA (NEGATIVE); PROTEIN,URINE NEGATIVE (NEGATIVE); UROBILINOGEN,URINE 0.2 (NORMAL) E.U./dL (NORMAL)
[2018-04-18 03:20] LABS: CLARITY,URINE CLEAR (CLEAR)
[2018-04-18] MEDS ORDERED: PROCHLORPERAZINE 10 MG/2 ML VIAL IVP PRN (03:20)
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
[2018-04-18] MEDS: HYDROmorphone 1 MG/ML CARPUJECT IVP PRN ×5 (05:56→21:04)
[2018-04-18] MEDS: SODIUM CHLORIDE FLUSH 0.9% 10 ML SYRINGE IVP PRN ×2 (05:57→06:21)
[2018-04-18] MEDS: NS W/20 MEQ KCL 1,000 ML IV SCH ×2 (05:57→17:08)
[2018-04-18] MEDS: PANTOPRAZOLE 40 MG VIAL IVP SCH (06:21)
[2018-04-18] MEDS: SODIUM CHLORIDE FLUSH 0.9% 10 ML SYRINGE IVP SCH ×2 (09:41→17:08)
[2018-04-18] MEDS ORDERED: DIATR MEGLU/DIATRIZOATE SODIUM 120 ML BOTTLE PO ONE (09:53)
--- NOTE | 2018-04-18 10:03 | CONSULTATION NOTE ---
Referring Provider Name of Referring Provider:: Dr. Olson Consult Date: 04/18/18 Chief Complaint - Chief Complaint Chief Complaint: abd pain History of Present Illness - Admitted From Admitted From:: ER - History Obtained From Records Reviewed: yes History obtained from: pt, records Exam Limitations: pt speaks minimal Albanian, no childhood development teacher was immediately available - History of Present Illness HPI Comment/Other: 78 yo female with hx of multiple prior admissions and ER visits for SBO and abdominal pain who presented to the ER last night with 1 day of crampy abdominal pain without N/V, fever/chills, or change in bowel habits. Her last similar episode for which she presented here was in 2016 where she responded quickly to bowel rest and IVF. She is s/p multiple prior abdominal surgeries, including cholecystectomy, CARLO/BSO, apparently for benign disease, some type of antireflux surgery performed in [place], and ventral hernia repair. She has a hx of persistent/recurrent GERD. Evaluation in the ER included a CT abd/pelvis which showed evidence of a segment of dilated mid small bowel with air fluid levels concerning for closed loop SBO. . Other findings on imaging included marked distention of the stomach and distal esophagus, and a dilated extrahepatic biliary tree without pancreatic mass evident. LFT's were nl as was CBC, and lipase was minimally elevated at 53. An NG tube was placed with return of almost 1 liter of fluid with marked improvement in pt's symptoms. Her abdomen was benign and she was admitted with surgical consultation requested. At present she is resting comfortably in bed, c/o minimal abdominal discomfort, colicky in nature. NG output has been documented as 200 cc over the past 6 hours. History - Past Medical History Cardiovascular: reports: Hypertension, High cholesterol, Angina Respiratory: reports: None Endocrine/Autoimmune: reports: None GI: reports: GERD, Ulcers WEATHER TEACHER: reports: None : reports: None HEENT: reports: None Psych: reports: None Musculoskeletal: reports: Osteoarthritis Derm: reports: None MRSA Hx?: No - Past Surgical History General: reports: Cholecystectomy, Hiatal hernia repair, Other (ventral hernia repair) Ortho: reports: Knee replacement /WEATHER TEACHER: reports: Hysterectomy, Oophrectomy - Family & Social History Living arrangement: At home Living Situation: With spouse/s.o. - POLST Patient has POLST: No Meds/Allgy - Home Medications Home Medications: Ambulatory Orders Medication Instructions Recorded Confirmed NIFEdipine [Nifedipine ER] 60 mg PO DAILY 03/12/14 04/18/18 Nitroglycerin [Nitrostat] 0.4 mg SL Q5MIN PRN 03/12/14 04/18/18 Aspirin 81 mg ORAL DAILY 11/05/16 04/18/18 Losartan [Cozaar] 50 mg ORAL DAILY 11/05/16 11/05/16 Mirtazapine 30 mg ORAL QPM 11/05/16 04/18/18 Gabapentin 100 mg PO BID 04/05/17 Multivitamin/Iron/Folic Acid 1 tab PO DAILY 04/05/17 04/18/18 [Centrum Adults Tablet] Sucralfate 1 gm PO ACHS #120 tablet 04/05/17 04/18/18 raNITIdine [Zantac] 150 mg PO BID #60 tablet 04/05/17 04/18/18 HYDROcod/ACETAM 5/325 [[place] 5/325] 1 tab PO Q6H PRN #20 tablet 06/20/17 04/18/18 Ondansetron HCl [Zofran] 4 mg PO Q6H PRN #20 tablet 06/20/17 04/18/18 Acetaminophen [Tylenol] 1 tab PO Q8HR PRN 04/18/18 04/18/18 Atorvastatin Calcium 10 mg PO QPM 04/18/18 04/18/18 Hydrochlorothiazide 12.5 mg PO DAILY 04/18/18 04/18/18 Metoprolol Succinate [Toprol Xl] 25 mg PO DAILY 04/18/18 04/18/18 Omeprazole 20 mg PO QPM 04/18/18 04/18/18 Trazodone HCl 50 mg PO QPM 04/18/18 04/18/18 clonazePAM [Clonazepam] 0.5 mg PO BID PRN 04/18/18 04/18/18 - Allergies Allergies/Adverse Reactions: Allergies Allergy/AdvReac Type Severity Reaction Status Date / Time No Known Drug Allergies Allergy Verified 04/18/18 00:14 Review of Systems - All Other Systems All Other Systems: reports: Other (unobtainable at present) Exam - Vital Signs Vital Signs: Vital Signs x48h Temp Pulse Pulse Resp BP BP Pulse Ox 04/18/18 07:40 36.6 C 78 18 178/79 H 97 04/18/18 04:13 36.5 C 81 20 157/76 H 99 04/18/18 03:43 171/81 H 04/18/18 03:13 88 12 183/99 H 98 04/18/18 02:59 86 15 201/83 H 94 04/18/18 02:56 36.7 C 86 12 201/83 H 97 - Physical Exam General Appearance: positive: Alert, Mild distress Eyes Bilateral: positive: Normal inspection, Conjunctivae nml, No scleral icterus ENT: positive: ENT inspection nml, Pharynx nml, No signs of dehydration Neck: positive: No JVD, Trachea midline. negative: Lymphadenopathy (R), Lymphadenopathy (L) Respiratory: positive: Chest non-tender, No respiratory distress, Breath sounds nml. negative: Wheezes, Rales, Rhonchi Cardiovascular: positive: Regular rate & rhythm, No gallop Abdomen: positive: No distention, Tenderness (mild LLQ tenderness with voluntary guarding, ow abd is soft and nontender), Abnml bowel sounds (hypoactive). negative: Hepatomegaly, Splenomegaly, Mass Skin: positive: Color nml, Warm, Dry. negative: Cyanosis Extremities: negative: Pedal edema, Calf tenderness Conclusion/Plan - Diagnosis Diagnosis: 1.Small bowel obstruction, high grade partial; no clinical evidence of closed loop SBO or strangulation obstruction or acute surgical abdomen; etiology likely due to adhesions; she appears to be improving with present management. 2. Dilated extrahepatic bile ducts in 78 yo female s/p cholecystectomy. Given nl LFTs I suspect this is due to her age and prior cholecystectomy rather than obstruction, and given the absence of CT findings concerning for a mass, I would not evaluate any further. 3. GERD, recurrent s/p antireflux surgery. - Plan Plan: Agree with NG suction, bowel rest, IVF, observation. Agree with PPI therapy given hx recurrent GERD. Will initiate a gastrograffin challenge test today. Will follow. Thanks, - Lab Results Fish Bones: 04/18/18 00:33 04/18/18 00:33 - Diagnostic Imaging Results Diagnostic Imaging Results: positive: Final report reviewed, Read independently Diagnostic Imaging Results Comments: See HPI 2 view abd series this AM: fluid filled loops of small bowel with minimal air fluid levels; gas and stool in colon.
--- NOTE | 2018-04-18 10:45 | XRAY Report ---
Reason: gastrograffing challenge test Procedure Date: 04/18/2018 Accession Number: [id number] / [id number] Procedure: XR - Abdomen 1 View X-Ray CPT Code: 68807 FULL RESULT: EXAM: ABDOMEN RADIOGRAPHY EXAM DATE: 04/18/2018 10:05 AM. CLINICAL HISTORY: Bowel obstruction. Gastrografin administration. COMPARISON: ABDOMEN 2 VIEW 04/18/2018 9:31 AM. TECHNIQUE: 1 view. FINDINGS: Bowel Gas Pattern: Orogastric tube stable in position. Contrast present within the proximal stomach and distal esophagus. Gaseous distention of bowel in the abdomen. Other: Vascular calcifications. IMPRESSION: 1. Contrast present within the distal esophagus and proximal stomach. RADIA
--- NOTE | 2018-04-18 10:49 | XRAY Report ---
Reason: f/u sbo Procedure Date: 04/18/2018 Accession Number: [id number] / [id number] Procedure: XR - Abdomen 2 View X-Ray CPT Code: 49755 FULL RESULT: EXAM: ABDOMEN RADIOGRAPHY EXAM DATE: 04/18/2018 09:54 AM. CLINICAL HISTORY: Small bowel obstruction. COMPARISON: XR ABDOMEN AP (KUB) 05/19/2007 4:20 PM ABDOMEN/PELVIS W/ 04/18/2018 1:50 AM. TECHNIQUE: 2 views. FINDINGS: Lung Bases: Bibasilar opacities. Bowel Gas Pattern: Orogastric tube present with the tip in the mid proximal stomach. Mild to moderate gaseous distention of small bowel in the upper abdomen. Small volume of stool in the colon. Contrast present within the urinary bladder. Free Air: None. Other: Levoscoliosis of the lumbar spine. Degenerative changes. IMPRESSION: 1. Orogastric tube present with the tip in the mid proximal stomach. 2. Mild to moderate mid upper abdominal small bowel dilatation which may be related to the history of bowel obstruction. RADIA
--- NOTE | 2018-04-18 11:06 | PROVIDER PROGRESS NOTE ---
Subjective - Prog Note Date Prog Note Date: 04/18/18 Prog Note Time: 11:00 - Subjective Pt reports feeling: Improved (Patient is thirsty and c/o abd pain which is improved localized to epigastric/hypogastric area) Current Medications - Current Medications Current Medications: Active Medications Hydralazine HCl (Apresoline Inj) 10 mg IVP TID PRN PRN Reason: Hypertensive Emergency Hydromorphone HCl (Dilaudid Inj Carp) 1 mg IVP Q2HR PRN PRN Reason: Pain 8 to 10 Last Admin: 04/18/18 08:21 Dose: 1 mg Potassium Chloride/Sodium Chloride (Normal Saline 0.9% W/20 Meq Kcl) 1,000 mls @ 100 mls/hr IV .Q10H [facility] Last Admin: 04/18/18 05:57 Dose: 100 mls/hr Ondansetron HCl (Zofran Inj) 4 mg IVP Q6HR PRN PRN Reason: Nausea / Vomiting Pantoprazole Sodium (Protonix) 40 mg IVP QDAC [facility] Last Admin: 04/18/18 06:21 Dose: 40 mg Polyethylene Glycol (Miralax) 17 gm PO DAILY [facility] Prochlorperazine Edisylate (Compazine Inj) 10 mg IVP Q6HR PRN PRN Reason: Nausea / Vomiting Sodium Chloride (Normal Saline Flush 0.9%) 10 ml IVP PRN PRN PRN Reason: NEEDED PER PROVIDER ORDERS Last Admin: 04/18/18 06:21 Dose: 10 ml Sodium Chloride (Normal Saline Flush 0.9%) 10 ml IVP 0100,0900,1700 [facility] Last Admin: 04/18/18 09:41 Dose: 10 ml NIFEdipine [Nifedipine ER] 60 mg PO DAILY 03/12/14 Nitroglycerin [Nitrostat] 0.4 mg SL Q5MIN PRN 03/12/14 Aspirin 81 mg ORAL DAILY 11/05/16 Losartan [Cozaar] 50 mg ORAL DAILY 11/05/16 Mirtazapine 30 mg ORAL QPM 11/05/16 Gabapentin 100 mg PO BID 04/05/17 Multivitamin/Iron/Folic Acid [Centrum Adults Tablet] 1 tab PO DAILY 04/05/17 Acetaminophen [Tylenol] 1 tab PO Q8HR PRN 04/18/18 Atorvastatin Calcium 10 mg PO QPM 04/18/18 Hydrochlorothiazide 12.5 mg PO DAILY 04/18/18 Metoprolol Succinate [Toprol Xl] 25 mg PO DAILY 04/18/18 Omeprazole 20 mg PO QPM 04/18/18 Trazodone HCl 50 mg PO QPM 04/18/18 clonazePAM [Clonazepam] 0.5 mg PO BID PRN 04/18/18 Objective - Vital Signs/Intake & Output Reviewed Vital Signs: Yes Vital Signs: Vital Signs x48h Temp Pulse Pulse Resp BP BP Pulse Ox 04/18/18 10:05 36.6 C 78 18 97 04/18/18 07:40 36.6 C 78 18 178/79 H 97 04/18/18 04:13 36.5 C 81 20 157/76 H 99 04/18/18 03:43 171/81 H 04/18/18 03:13 88 12 183/99 H 98 Intake & Output: Intake & Output 04/15/18 04/16/18 04/17/18 04/18/18 23:59 23:59 23:59 23:59 Intake Total 1000 Output Total 2165 Balance -1165 - Objective General Appearance: positive: No acute distress, Alert, Anxious Eyes Bilateral: positive: Normal inspection, PERRL, EOMI, Conjunctivae nml ENT: positive: ENT inspection nml, Pharynx nml, Dry mucous membranes Neck: positive: Nml inspection, Thyroid nml, No JVD, Trachea midline. negative: Thyromegaly Respiratory: positive: Chest non-tender, No respiratory distress, Breath sounds nml Cardiovascular: positive: Regular rate & rhythm, No murmur, No gallop Peripheral Pulses: 2+ Dorsalis pedis (R), 2+ Dorsalis pedis (L) Abdomen: positive: No organomegaly, No distention, Tenderness (Epigast iker/hypogastric low quads), Abnml bowel sounds. negative: Guarding, Rebound Skin: positive: Color nml, Warm, Dry Extremities: positive: Non-tender, Full ROM, Nml appearance Neurologic/Psychiatric: positive: Oriented x3, CN's nml (2-12) - Lab Results Fish Bones: 04/18/18 00:33 04/18/18 00:33 Other Labs: Lab Results x24hrs 04/18/18 04/18/18 04/18/18 Range/Units 03:10 00:33 00:33 WBC (4.8-10.8) x10^3/uL RBC (4.20-5.40) 10^6/uL Hgb (12.0-16.0) g/dL Hct (37.0-47.0) % MCV (81.0-99.0) fL MCH (27.0-31.0) pg MCHC (32.0-36.0) g/dL RDW (12.0-15.0) % Plt Count (130-450) 10^3/uL MPV (7.9-10.8) fL Neut # (Auto) (1.5-6.6) 10^3/uL Lymph # (Auto) (1.5-3.5) 10^3/uL Piatt # (Auto) (0.0-1.0) 10^3/uL Eos # (Auto) (0.0-0.7) 10^3/uL Baso # (Auto) (0.0-0.1) 10^3/uL Absolute Nucleated RBC x10^3/uL Nucleated RBC % /100WBC Sodium 145 (135-145) mmol/L Potassium 3.9 (3.5-5.0) mmol/L Chloride 110 (101-111) mmol/L Carbon Dioxide 27 (21-32) mmol/L Anion Gap 8.0 (6-13) BUN 30 H (6-20) mg/dL Creatinine 1.2 H (0.4-1.0) mg/dL Estimated GFR (MDRD) 43 L (>89) Glucose 108 H (70-100) mg/dL Calcium 9.3 (8.5-10.3) mg/dL Total Bilirubin 0.6 (0.2-1.0) mg/dL AST 25 (10-42) IU/L ALT 18 (10-60) IU/L Alkaline Phosphatase 66 (42-121) IU/L Troponin I < 0.04 (<0.49) ng/mL Total Protein 7.7 (6.7-8.2) g/dL Albumin 4.4 (3.2-5.5) g/dL Globulin 3.3 (2.1-4.2) g/dL Albumin/Globulin Ratio 1.3 (1.0-2.2) Lipase 53 H (22-51) U/L Urine Color YELLOW Urine Clarity CLEAR (CLEAR) Urine pH 7.0 (5.0-7.5) PH Ur Specific [place] 1.010 (1.002-1.030) Urine Protein NEGATIVE (NEGATIVE) mg/dL Urine Glucose (UA) NEGATIVE (NEGATIVE) mg/dL Urine Ketones NEGATIVE (NEGATIVE) mg/dL Urine Occult Blood TRACE-INTA (NEGATIVE) Urine Nitrite NEGATIVE (NEGATIVE) Urine Bilirubin NEGATIVE (NEGATIVE) Urine Urobilinogen 0.2 (NORMAL) (NORMAL) E.U./dL Ur Leukocyte Esterase NEGATIVE (NEGATIVE) Ur Microscopic Review NOT INDICATED Urine Culture Comments NOT INDICATED 04/18/18 Range/Units 00:33 WBC 6.8 (4.8-10.8) x10^3/uL RBC 4.37 (4.20-5.40) 10^6/uL Hgb 12.6 (12.0-16.0) g/dL Hct 37.8 (37.0-47.0) % MCV 86.5 (81.0-99.0) fL MCH 28.8 (27.0-31.0) pg MCHC 33.3 (32.0-36.0) g/dL RDW 13.0 (12.0-15.0) % Plt Count 231 (130-450) 10^3/uL MPV 9.3 (7.9-10.8) fL Neut # (Auto) 4.3 (1.5-6.6) 10^3/uL Lymph # (Auto) 1.7 (1.5-3.5) 10^3/uL Piatt # (Auto) 0.7 (0.0-1.0) 10^3/uL Eos # (Auto) 0.1 (0.0-0.7) 10^3/uL Baso # (Auto) 0.0 (0.0-0.1) 10^3/uL Absolute Nucleated RBC 0.00 x10^3/uL Nucleated RBC % 0.0 /100WBC Sodium (135-145) mmol/L Potassium (3.5-5.0) mmol/L Chloride (101-111) mmol/L Carbon Dioxide (21-32) mmol/L Anion Gap (6-13) BUN (6-20) mg/dL Creatinine (0.4-1.0) mg/dL Estimated GFR (MDRD) (>89) Glucose (70-100) mg/dL Calcium (8.5-10.3) mg/dL Total Bilirubin (0.2-1.0) mg/dL AST (10-42) IU/L ALT (10-60) IU/L Alkaline Phosphatase (42-121) IU/L Troponin I (<0.49) ng/mL Total Protein (6.7-8.2) g/dL Albumin (3.2-5.5) g/dL Globulin (2.1-4.2) g/dL Albumin/Globulin Ratio (1.0-2.2) Lipase (22-51) U/L Urine Color Urine Clarity (CLEAR) Urine pH (5.0-7.5) PH Ur Specific [place] (1.002-1.030) Urine Protein (NEGATIVE) mg/dL Urine Glucose (UA) (NEGATIVE) mg/dL Urine Ketones (NEGATIVE) mg/dL Urine Occult Blood (NEGATIVE) Urine Nitrite (NEGATIVE) Urine Bilirubin (NEGATIVE) Urine Urobilinogen (NORMAL) E.U./dL Ur Leukocyte Esterase (NEGATIVE) Ur Microscopic Review Urine Culture Comments - Diagnostic Imaging Diagnostic Imaging Results: positive: Final report reviewed (CT abd pelvis c/w "closed loop" SBO with air-fluid levels. Extra-bilary ductal dilation with no evidence of pancreatic mass) ABX Reporting Has patient been on IV antibiotics over the past 48 hours?: No Assessment/Plan - Problem List (1) Small bowel obstruction Impression: Small bowel obstruction, high grade partial; no clinical evidence of closed loop SBO or strangulation obstruction or acute surgical abdomen; etiology likely due to adhesions; she appears to be improving with present management. Would continue with IVF's, IV PPI, NPO, Bowel rest, NGT with decompression, serial abd exams, Gastrofrafin challenge test today. (3) Dilated cbd, acquired Impression: Dilated extrahepatic bile ducts in 78 yo female s/p cholecystectomy. Given nl LFTs I suspect this is due to her age and prior cholecystectomy rather than obstruction, and given the absence of CT findings concerning for a mass. Sec to chronicity of biliary non-obstructing pathology but no evidence of stones in biliary tree or pancreatic masses seen on CT. Would perform a MRCP to better delineate whether she may have retention of stones, however LFT's and lipase are normal. Continue with supportive conservative mgmt. (4) Abdominal pain Impression: Continue with pain mgmt, IV PPI as this has a multifactorial etiology. (5) GERD (gastroesophageal reflux disease) Impression: Would continue with IV protonix and supportive care for now. Qualifiers: Esophagitis presence: with esophagitis Qualified Code(s): K21.0 - Gastro- esophageal reflux disease with esophagitis
[2018-04-18] MEDS: ONDANSETRON 4 MG/2 ML VIAL IVP PRN ×2 (12:00→21:04)
[2018-04-18] MEDS: POLYETHYLENE GLYCOL 3350 17 GM PACKET PO SCH (12:00)
[2018-04-18] MEDS: ACETAMINOPHEN 1,000 MG/100 ML 100 ML IV PRN ×2 (13:11→22:30)
--- NOTE | 2018-04-18 14:04 | XRAY Report ---
Reason: f/u sbo; gastrograffin challenge Procedure Date: 04/18/2018 Accession Number: [id number] / [id number] Procedure: XR - Abdomen 1 View X-Ray CPT Code: 33472 FULL RESULT: EXAM: ABDOMEN RADIOGRAPHY EXAM DATE: 04/18/2018 01:54 PM. CLINICAL HISTORY: 4 hours post Gastrografin. Small bowel obstruction. Follow-up. COMPARISON: ABDOMEN 1 VIEW 04/18/2018 9:59 AM. TECHNIQUE: 1 view. FINDINGS: Bowel Gas Pattern: 4 hour image obtained following the installation of contrast. Large volume of contrast present in the proximal stomach and distal esophagus. Small hiatal hernia. Dilute contrast is present in the mid and left abdomen most likely within the mid and proximal small bowel as well as the duodenum. There is distention of the small bowel. Contrast is not yet present within the very distal small bowel or colon. Stool present in the colon as before. Orogastric tube again seen. Other: Vascular calcifications. Contrast present in the urinary bladder. IMPRESSION: 1. 4 hour image obtained. Contrast present within the mid and left abdomen and present within the mid proximal small bowel, duodenum and stomach. Contrast not yet present within the distal small bowel or colon. RADIA
--- NOTE | 2018-04-18 22:43 | XRAY Report ---
Reason: f/u sbo; gastrograffin challenge Procedure Date: 04/18/2018 Accession Number: [id number] / [id number] Procedure: XR - Abdomen 1 View X-Ray CPT Code: 90727 FULL RESULT: EXAM: ABDOMEN RADIOGRAPHY. EXAM DATE: 04/18/2018 09:57 PM. CLINICAL HISTORY: Small bowel obstruction, Gastrografin follow-through. COMPARISON: Abdomen 1 view 04/18/2018 1:41 PM. TECHNIQUE: 1 view. FINDINGS IMPRESSION: 1. There is a moderate amount of retained Gastrografin contrast material within the stomach. Orogastric tube tip projects over the midportion of the stomach. 2. Contrast opacified dilated small bowel loops are noted. No passage of contrast material into the colon visualized on this exam. However, due to prolonged transit time, density of the contrast material has been gradually decreasing. This greatly reduces sensitivity and spasticity. 3. Patient had an episode of vomiting as reported to me by the technologist. This coupled with moderate retained gastric contrast material, I would recommend that the orogastric tube be placed on suction so that the Gastrografin material from the stomach could be aspirated. This would avoid pneumonitis in case there is aspiration. 4. Repeat abdominal radiograph recommended tomorrow morning. RADIA
[2018-04-19] MEDS: hydrALAZINE INJ 20 MG/ML VIAL IVP PRN ×2 (00:49→06:09)
[2018-04-19] MEDS: HYDROmorphone 1 MG/ML CARPUJECT IVP PRN ×5 (01:20→20:58)
[2018-04-19] MEDS: NS W/20 MEQ KCL 1,000 ML IV SCH ×2 (02:25→03:10)
[2018-04-19] MEDS: SODIUM CHLORIDE FLUSH 0.9% 10 ML SYRINGE IVP SCH ×4 (02:25→23:38)
[2018-04-19 05:55] LABS: BASOPHILS % (AUTO) 0.2 %; HGB - HEMOGLOBIN 12.1 g/dL (12.0-16.0); LYMPHOCYTES # (AUTO) 0.7 10^3/uL (1.5-3.5); LYMPHOCYTES % (AUTO) 6.1 %; MEAN CORPUSCULAR HEMOGLOBIN 29.4 pg (27.0-31.0); MEAN CORPUSCULAR HGB CONC 32.9 g/dL (32.0-36.0); MEAN CORPUSCULAR VOLUME 89.4 fL (81.0-99.0); MEAN PLATELET VOLUME 9.5 fL (7.9-10.8); MONOCYTES # (AUTO) 0.8 10^3/uL (0.0-1.0); NEUTROPHILS # (AUTO) 9.8 10^3/uL (1.5-6.6); NEUTROPHILS % (AUTO) 86.7 %; PLT - PLATELET COUNT 220 10^3/uL (130-450); RED BLOOD COUNT 4.12 10^6/uL (4.20-5.40); WHITE BLOOD COUNT 11.3 x10^3/uL (4.8-10.8)
[2018-04-19 06:10] LABS: ALBUMIN 3.9 g/dL (3.2-5.5); ALBUMIN/GLOBULIN RATIO 1.3 (1.0-2.2); BILIRUBIN,TOTAL 0.5 mg/dL (0.2-1.0); CREATININE 1.2 mg/dL (0.4-1.0); TOTAL PROTEIN 6.8 g/dL (6.7-8.2)
[2018-04-19] MEDS ORDERED: HALOPERIDOL 5 MG/ML VIAL ONE (06:29)
[2018-04-19] MEDS: DEXTROSE 5% 1,000 ML IV SCH ×2 (06:30→16:53)
[2018-04-19] MEDS ORDERED: DEXTROSE 5% 1,000 ML IV ONE (06:30)
[2018-04-19] MEDS ORDERED: HALOPERIDOL 5 MG/ML VIAL IVP ONE (06:45)
[2018-04-19] MEDS ORDERED: hydrALAZINE INJ 20 MG/ML VIAL IVP PRN (07:34)
[2018-04-19] MEDS: ONDANSETRON 4 MG/2 ML VIAL IVP PRN (07:55)
[2018-04-19] MEDS ORDERED: cloNIDine 0.2 MG PATCH TOP SCH (08:00)
[2018-04-19] MEDS: POLYETHYLENE GLYCOL 3350 17 GM PACKET PO SCH (09:35)
[2018-04-19] MEDS: PANTOPRAZOLE 40 MG VIAL IVP SCH (09:35)
--- NOTE | 2018-04-19 12:52 | XRAY Report ---
Reason: f/u sbo; gastrograffin challenge test Procedure Date: 04/19/2018 Accession Number: [id number] / [id number] Procedure: XR - Abdomen 1 View X-Ray CPT Code: 31748 FULL RESULT: EXAM: ABDOMEN RADIOGRAPHY EXAM DATE: 04/19/2018 10:25 AM. CLINICAL HISTORY: Small bowel obstruction. Gastrografin challenge. COMPARISON: ABDOMEN 1 VIEW 04/18/2018 9:43 PM ABDOMEN 1 VIEW 04/18/2018 1:41 PM ABDOMEN 1 VIEW 04/18/2018 9:59 AM ABDOMEN 2 VIEW 04/18/2018 9:31 AM ABDOMEN/PELVIS W/ 04/18/2018 1:50 AM. TECHNIQUE: 1 view. FINDINGS: Bowel Gas Pattern: Marked small bowel dilatation again seen. There is no contrast present within the colon or distal small bowel. Orogastric tube again seen although repositioned more proximally. There is been removal of the contrast in the stomach. Other: Degenerative changes. Arthroscopic calcified plaque. IMPRESSION: 1. Interval removal of contrast within the proximal stomach. 2. Slight proximal repositioning of orogastric tube with the tip in the very proximal stomach. 3. Marked small bowel dilatation with contrast present within dilated loops of mid proximal small bowel. Contrast not present within distal small bowel or colon. RADIA
[2018-04-19] MEDS: HALOPERIDOL 5 MG/ML VIAL IVP PRN ×2 (14:13→19:40)
--- NOTE | 2018-04-19 16:49 | PROVIDER PROGRESS NOTE ---
Subjective - Prog Note Date Prog Note Date: 04/19/18 Prog Note Time: 16:47 - Subjective Pt reports feeling: Worse (SBO has not worsened clinically however patient's mental status has progressed to delirium and behavioral changes for which she is confabulating, hallucinating and displaying paranoia and distrust in staff memebers, and other who are trying to help her) Current Medications - Current Medications Current Medications: Active Medications Clonidine HCl ([id number]) 1 patch TOP Q7D JARED Last Admin: 04/19/18 07:49 Dose: 1 patch Haloperidol (Haldol Inj) 5 mg IVP Q6H PRN PRN Reason: Agitation Last Admin: 04/19/18 14:13 Dose: 5 mg Hydralazine HCl (Apresoline Inj) 20 mg IVP Q4HR PRN PRN Reason: Hypertensive Emergency SBP>180 Hydromorphone HCl (Dilaudid Inj Carp) 1 mg IVP Q2HR PRN PRN Reason: Pain 8 to 10 Last Admin: 04/19/18 16:06 Dose: 1 mg Acetaminophen (Ofirmev) 100 mls @ 400 mls/hr IV Q6HR PRN PRN Reason: Pain, Headaches, or T>100.4 Last Infusion: 04/18/18 22:52 Dose: Infused Dextrose (D5w) 1,000 mls @ 100 mls/hr IV .Q10H [facility] Last Admin: 04/19/18 06:30 Dose: 100 mls/hr Ondansetron HCl (Zofran Inj) 4 mg IVP Q6HR PRN PRN Reason: Nausea / Vomiting Last Admin: 04/19/18 07:55 Dose: 4 mg Pantoprazole Sodium (Protonix) 40 mg IVP QDAC JARED Last Admin: 04/19/18 09:35 Dose: 40 mg Polyethylene Glycol (Miralax) 17 gm PO DAILY [facility] Last Admin: 04/19/18 09:35 Dose: Not Given Prochlorperazine Edisylate (Compazine Inj) 10 mg IVP Q6HR PRN PRN Reason: Nausea / Vomiting Last Admin: 04/18/18 14:41 Dose: 10 mg Sodium Chloride (Normal Saline Flush 0.9%) 10 ml IVP PRN PRN PRN Reason: NEEDED PER PROVIDER ORDERS Last Admin: 04/18/18 06:21 Dose: 10 ml Sodium Chloride (Normal Saline Flush 0.9%) 10 ml IVP 0100,0900,1700 JARED Last Admin: 04/19/18 16:08 Dose: Not Given NIFEdipine [Nifedipine ER] 60 mg PO DAILY 03/12/14 Nitroglycerin [Nitrostat] 0.4 mg SL Q5MIN PRN 03/12/14 Aspirin 81 mg ORAL DAILY 11/05/16 Losartan [Cozaar] 50 mg ORAL DAILY 11/05/16 Mirtazapine 30 mg ORAL QPM 11/05/16 Gabapentin 100 mg PO BID 04/05/17 Multivitamin/Iron/Folic Acid [Centrum Adults Tablet] 1 tab PO DAILY 04/05/17 Acetaminophen [Tylenol] 1 tab PO Q8HR PRN 04/18/18 Atorvastatin Calcium 10 mg PO QPM 04/18/18 Hydrochlorothiazide 12.5 mg PO DAILY 04/18/18 Metoprolol Succinate [Toprol Xl] 25 mg PO DAILY 04/18/18 Omeprazole 20 mg PO QPM 04/18/18 Trazodone HCl 50 mg PO QPM 04/18/18 clonazePAM [Clonazepam] 0.5 mg PO BID PRN 04/18/18 Objective - Vital Signs/Intake & Output Reviewed Vital Signs: Yes Vital Signs: Vital Signs x48h Temp Pulse Resp BP Pulse Ox 04/19/18 15:48 37.6 C H 109 H 16 145/113 H 96 Intake & Output: Intake & Output 04/16/18 04/17/18 04/18/18 04/19/18 23:59 23:59 23:59 23:59 Intake Total 2200 1363 Output Total 2915 1725 Balance -715 -362 - Objective General Appearance: positive: No acute distress, Anxious, Other (delirium with behavioral episodes of agitation are noted) Eyes Bilateral: positive: Normal inspection, PERRL, EOMI, Conjunctivae nml Neck: positive: Thyroid nml, No JVD. negative: Carotid bruit Respiratory: positive: Chest non-tender, No respiratory distress, Breath sounds nml Cardiovascular: positive: Regular rate & rhythm, No murmur, No gallop Abdomen: positive: No organomegaly, No distention, Tenderness (mildly tender to lower quads). negative: Guarding, Rebound, Mass Skin: positive: Color nml, No rash, Warm Extremities: positive: Non-tender, Full ROM, Nml appearance Neurologic/Psychiatric: positive: Disoriented to place, Disoriented to time, Weakness - Lab Results Fish Bones: 04/19/18 05:30 04/19/18 05:30 Other Labs: Lab Results x24hrs 04/19/18 04/19/18 Range/Units 05:30 05:30 WBC 11.3 H (4.8-10.8) x10^3/uL RBC 4.12 L (4.20-5.40) 10^6/uL Hgb 12.1 (12.0-16.0) g/dL Hct 36.8 L (37.0-47.0) % MCV 89.4 (81.0-99.0) fL MCH 29.4 (27.0-31.0) pg MCHC 32.9 (32.0-36.0) g/dL RDW 14.0 (12.0-15.0) % Plt Count 220 (130-450) 10^3/uL MPV 9.5 (7.9-10.8) fL Neut # (Auto) 9.8 H (1.5-6.6) 10^3/uL Lymph # (Auto) 0.7 L (1.5-3.5) 10^3/uL [place] # (Auto) 0.8 (0.0-1.0) 10^3/uL Eos # (Auto) 0.0 (0.0-0.7) 10^3/uL Baso # (Auto) 0.0 (0.0-0.1) 10^3/uL Absolute Nucleated RBC 0.00 x10^3/uL Nucleated RBC % 0.0 /100WBC Sodium 155 H* (135-145) mmol/L Potassium 4.8 (3.5-5.0) mmol/L Chloride 120 H* (101-111) mmol/L Carbon Dioxide 24 (21-32) mmol/L Anion Gap 11.0 (6-13) BUN 30 H (6-20) mg/dL Creatinine 1.2 H (0.4-1.0) mg/dL Estimated GFR (MDRD) 43 L (>89) Glucose 146 H (70-100) mg/dL Calcium 9.0 (8.5-10.3) mg/dL Total Bilirubin 0.5 (0.2-1.0) mg/dL AST 22 (10-42) IU/L ALT 14 (10-60) IU/L Alkaline Phosphatase 56 (42-121) IU/L Total Protein 6.8 (6.7-8.2) g/dL Albumin 3.9 (3.2-5.5) g/dL Globulin 2.9 (2.1-4.2) g/dL Albumin/Globulin Ratio 1.3 (1.0-2.2) - Diagnostic Imaging Diagnostic Imaging Results: positive: Final report reviewed (Serial AXR's show very little no Gastrofragin contrast in colon after Gastrofrafin challenge) ABX Reporting Has patient been on IV antibiotics over the past 48 hours?: No Assessment/Plan - Problem List (1) Delirium due to medical condition with behavioral disturbance Impression: Patient very agitated, confused and with paranoid hallucinations repeating her requests to go home despite her very serious condition and lacks mental capacity to make decisions on her behalf and would require spouses consent for surgery if needed. Patient needed to have bilateral soft restraints with IV haldol q4 hr prn. Would need to assess periodically for chemical and physical restraints. (2) Malignant essential hypertension Impression: sec to pain and agitation as it relates to her delirium. Already on clonidine patch, continue with IV hydralazine for BP excursions. (3) Small bowel obstruction Impression: Patient with a persistent SBO. She removed NGT due to her Dementia/Delirium with behavioral d/o. Currently she lacks mental capacity to make her own decisions and therefore will be managed conservatively with IVF's, NPO, pain meds and bowel rest. Dr. Alexandre has deferred surgery for now unless she begins to have worsening abdominal pain with nausea and emesis. (4) Acute renal insufficiency Impression: Stable currently, however rise in sodium indicated increase GI losses and worsening dehydration with no further decline in renal status. On D5W to lower patients hypernatremia. (5) Dilated cbd, acquired Impression: Dilated extrahepatic bile ducts in 78 yo female s/p cholecystectomy. Given nl LFTs I suspect this is due to her age and prior cholecystectomy rather than obstruction, and given the absence of CT findings concerning for a mass. Sec to chronicity of biliary non-obstructing pathology but no evidence of stones in biliary tree or pancreatic masses seen on CT. Would perform a MRCP to better delineate whether she may have retention of stones, however LFT's and lipase are normal. Continue with supportive conservative mgmt. (6) Abdominal pain Impression: Sec to intrabdominal adhesions from multiple surgeries. Improved on exam and with minimal to no distention. Would maintain NPO status for now. IVF's to continue along with pain control with narcotics.
--- NOTE | 2018-04-19 17:27 | PROVIDER PROGRESS NOTE ---
Assessment/Plan - Problem List (1) Small bowel obstruction Assessment/Plan: Condition stable, possibly slightly improved; no evidence of acute abdomen or strangulation obstruction at present; rec continue non operative management with bowel rest, IVF, correct electrolyte abnormalities, recheck abd films in am. OK to leave NG out unless N/V recurs, at which point it should be reinserted. Consider green catheter to better measure urine output and volume status. - Current Meds Current Meds: Current Medications Generic Name Dose Route Start Last Admin Trade Name Freq PRN Reason Stop Dose Admin Clonidine HCl 1 patch 04/19/18 08:00 04/19/18 07:49 [id number] TOP 1 patch Q7D JARED Administration Haloperidol 5 mg 04/19/18 13:40 04/19/18 14:13 Haldol Inj IVP 5 mg Q6H PRN Administration Agitation Hydromorphone HCl 1 mg 04/18/18 03:20 04/19/18 16:06 Dilaudid Inj Carp IVP 1 mg Q2HR PRN Administration Pain 8 to 10 Acetaminophen 100 mls @ 400 mls/hr 04/18/18 12:59 04/18/18 22:52 Ofirmev IV Infused Q6HR PRN Infusion Pain, Headaches, or T>100.4 Dextrose 1,000 mls @ 100 mls/hr 04/19/18 07:00 04/19/18 16:53 D5w IV 100 mls/hr .Q10H JARED Administration Ondansetron HCl 4 mg 04/18/18 03:20 04/19/18 07:55 Zofran Inj IVP 4 mg Q6HR PRN Administration Nausea / Vomiting Pantoprazole Sodium 40 mg 04/18/18 07:00 04/19/18 09:35 Protonix IVP 40 mg QDAC JARED Administration Prochlorperazine Edisylate 10 mg 04/18/18 03:20 04/18/18 14:41 Compazine Inj IVP 10 mg Q6HR PRN Administration Nausea / Vomiting Sodium Chloride 10 ml 04/18/18 03:20 04/18/18 06:21 Normal Saline Flush 0.9% IVP 10 ml PRN PRN Administration NEEDED PER PROVIDER ORDERS Sodium Chloride 10 ml 04/18/18 09:00 04/19/18 16:08 Normal Saline Flush 0.9% IVP Not Given 0100,0900,1700 JARED - Lab Result Fish Bone Diagrams: 04/19/18 05:30 04/19/18 05:30 - Diagnostic Imaging Results Diagnostic Imaging Results: Final report reviewed, Read independently Diagnostic Imaging Results Comments: abd films show contrast in dilated small bowel but not in colon; colon has moderate amount of gas and stool present. - Additional Planning Condition/Complexity: Stable My Orders: My Active Orders 04/19/18 BMP - BASIC METABOLIC PANEL [CHEM] Routine Time Spent: 15-30 minutes Subjective - Subjective Patient Reports: Feeling Better (pt reported feeling better today after receiving analgesics; denied abd pain), Resting Comfortably, No Complaints Objective Vital Signs: Vital Signs - 24 hr 04/18/18 04/18/18 04/19/18 18:52 21:58 00:49 Temperature 36.4 C L Heart Rate [ 115 H Brachial] Respiratory Rate Blood Pressure 224/78 H Blood Pressure [Left Brachial artery] O2 Saturation 97 04/19/18 04/19/18 04/19/18 01:00 01:10 01:15 Temperature 36.6 C Heart Rate [ 95 106 H Brachial] Respiratory 18 Rate Blood Pressure Blood Pressure 144/102 H 166/61 H 171/72 H [Left Brachial artery] O2 Saturation 99 04/19/18 04/19/18 04/19/18 01:19 01:20 01:28 Temperature Heart Rate [ 100 113 H Brachial] Respiratory Rate Blood Pressure 171/72 H Blood Pressure 181/66 H 154/58 H [Left Brachial artery] O2 Saturation 04/19/18 04/19/18 04/19/18 01:45 01:48 02:00 Temperature Heart Rate [ 110 H 111 H 110 H Brachial] Respiratory Rate Blood Pressure Blood Pressure 147/54 H 147/54 H 161/57 H [Left Brachial artery] O2 Saturation 04/19/18 04/19/18 04/19/18 02:15 06:09 06:39 Temperature Heart Rate [ 112 H Brachial] Respiratory Rate Blood Pressure 202/69 H 169/129 H Blood Pressure 143/63 H [Left Brachial artery] O2 Saturation 04/19/18 04/19/18 08:00 15:48 Temperature 37.2 C 37.6 C H Heart Rate [ 124 H 109 H Brachial] Respiratory 12 16 Rate Blood Pressure Blood Pressure 144/65 H 145/113 H [Left Brachial artery] O2 Saturation 96 96 Oxygen O2 Source Room air I&O (Last 24 Hrs): Intake and Output Totals x24h 04/17/18 04/18/18 04/19/18 23:59 23:59 23:59 Intake Total 2200 2363 Output Total 2915 1725 Balance -715 638 General: Mild distress, Other (wants to go home, declines any potention surgical intervention, also confused and disoriented) HEENT: Other (mucous membranes dry) Neck: No JVD Respiratory: Chest non-tender, No respiratory distress, Breath sounds nml Abdomen: Normal bowel sounds, Soft, No hepatospenomegaly, No masses, Other (nondistended; possibly mildy tender in LLQ; no peritoneal signs.) Extremities: No edema, No tenderness/swelling - Results Results: Laboratory Results WBC 11.3 x10^3/uL (4.8-10.8) H 04/19/18 05:30 RBC 4.12 10^6/uL (4.20-5.40) L 04/19/18 05:30 Hgb 12.1 g/dL (12.0-16.0) 04/19/18 05:30 Hct 36.8 % (37.0-47.0) L 04/19/18 05:30 MCV 89.4 fL (81.0-99.0) 04/19/18 05:30 MCH 29.4 pg (27.0-31.0) 04/19/18 05:30 MCHC 32.9 g/dL (32.0-36.0) 04/19/18 05:30 RDW 14.0 % (12.0-15.0) 04/19/18 05:30 Plt Count 220 10^3/uL (130-450) 04/19/18 05:30 MPV 9.5 fL (7.9-10.8) 04/19/18 05:30 Neut # (Auto) 9.8 10^3/uL (1.5-6.6) H 04/19/18 05:30 Lymph # (Auto) 0.7 10^3/uL (1.5-3.5) L 04/19/18 05:30 [place] # (Auto) 0.8 10^3/uL (0.0-1.0) 04/19/18 05:30 Eos # (Auto) 0.0 10^3/uL (0.0-0.7) 04/19/18 05:30 Baso # (Auto) 0.0 10^3/uL (0.0-0.1) 04/19/18 05:30 Absolute Nucleated RBC 0.00 x10^3/uL 04/19/18 05:30 Nucleated RBC % 0.0 /100WBC 04/19/18 05:30 Sodium 155 mmol/L (135-145) H* 04/19/18 05:30 Potassium 4.8 mmol/L (3.5-5.0) 04/19/18 05:30 Chloride 120 mmol/L (101-111) H* 04/19/18 05:30 Carbon Dioxide 24 mmol/L (21-32) 04/19/18 05:30 Anion Gap 11.0 (6-13) 04/19/18 05:30 BUN 30 mg/dL (6-20) H 04/19/18 05:30 Creatinine 1.2 mg/dL (0.4-1.0) H 04/19/18 05:30 Estimated GFR (MDRD) 43 (>89) L 04/19/18 05:30 Glucose 146 mg/dL (70-100) H 04/19/18 05:30 Calcium 9.0 mg/dL (8.5-10.3) 04/19/18 05:30 Total Bilirubin 0.5 mg/dL (0.2-1.0) 04/19/18 05:30 AST 22 IU/L (10-42) 04/19/18 05:30 ALT 14 IU/L (10-60) 04/19/18 05:30 Alkaline Phosphatase 56 IU/L (42-121) 04/19/18 05:30 Troponin I < 0.04 ng/mL (<0.49) 04/18/18 00:33 Total Protein 6.8 g/dL (6.7-8.2) 04/19/18 05:30 Albumin 3.9 g/dL (3.2-5.5) 04/19/18 05:30 Globulin 2.9 g/dL (2.1-4.2) 04/19/18 05:30 Albumin/Globulin Ratio 1.3 (1.0-2.2) 04/19/18 05:30 Lipase 53 U/L (22-51) H 04/18/18 00:33 Urine Color YELLOW 04/18/18 03:10 Urine Clarity CLEAR (CLEAR) 04/18/18 03:10 Urine pH 7.0 PH (5.0-7.5) 04/18/18 03:10 Ur Specific [place] 1.010 (1.002-1.030) 04/18/18 03:10 Urine Protein NEGATIVE mg/dL (NEGATIVE) 04/18/18 03:10 Urine Glucose (UA) NEGATIVE mg/dL (NEGATIVE) 04/18/18 03:10 Urine Ketones NEGATIVE mg/dL (NEGATIVE) 04/18/18 03:10 Urine Occult Blood TRACE-INTA (NEGATIVE) 04/18/18 03:10 Urine Nitrite NEGATIVE (NEGATIVE) 04/18/18 03:10 Urine Bilirubin NEGATIVE (NEGATIVE) 04/18/18 03:10 Urine Urobilinogen 0.2 (NORMAL) E.U./dL (NORMAL) 04/18/18 03:10 Ur Leukocyte Esterase NEGATIVE (NEGATIVE) 04/18/18 03:10 Ur Microscopic Review NOT INDICATED 04/18/18 03:10 Urine Culture Comments NOT INDICATED 04/18/18 03:10 - Procedures Procedures: Procedures ESOPHAGOGASTRODUODENOSCOPY [EGD] W/CLOSED BIOPSY (03/21/14) EXCISION OF LOWER ESOPHAGUS, ENDO, DIAGN (12/09/15) EXCISION OF STOMACH, ENDO, DIAGN (12/09/15) ABX Reporting Has patient been on IV antibiotics over the past 48 hours?: No
[2018-04-19] MEDS: ACETAMINOPHEN 1,000 MG/100 ML 100 ML IV PRN (19:40)
[2018-04-20] MEDS: SODIUM CHLORIDE FLUSH 0.9% 10 ML SYRINGE IVP SCH ×5 (00:47→06:17)
[2018-04-20] MEDS: HYDROmorphone 1 MG/ML CARPUJECT IVP PRN ×2 (01:28→04:10)
[2018-04-20] MEDS: HALOPERIDOL 5 MG/ML VIAL IVP PRN ×2 (02:55→11:10)
[2018-04-20] MEDS: DEXTROSE 5% 1,000 ML IV SCH (03:34)
[2018-04-20 05:40] LABS: BASOPHILS % (AUTO) 0.3 %; EOSINOPHILS % (AUTO) 0.1 %; HGB - HEMOGLOBIN 11.2 g/dL (12.0-16.0); LYMPHOCYTES # (AUTO) 1.4 10^3/uL (1.5-3.5); LYMPHOCYTES % (AUTO) 12.5 %; MEAN CORPUSCULAR HEMOGLOBIN 29.1 pg (27.0-31.0); MEAN CORPUSCULAR HGB CONC 32.5 g/dL (32.0-36.0); MEAN CORPUSCULAR VOLUME 89.4 fL (81.0-99.0); MEAN PLATELET VOLUME 9.7 fL (7.9-10.8); MONOCYTES # (AUTO) 1.2 10^3/uL (0.0-1.0); MONOCYTES % (AUTO) 10.7 %; NEUTROPHILS # (AUTO) 8.5 10^3/uL (1.5-6.6); NEUTROPHILS % (AUTO) 76.4 %; PLT - PLATELET COUNT 189 10^3/uL (130-450); RED BLOOD COUNT 3.84 10^6/uL (4.20-5.40); RED CELL DISTRIBUTION WIDTH 13.7 % (12.0-15.0); WHITE BLOOD COUNT 11.1 x10^3/uL (4.8-10.8)
[2018-04-20 05:51] LABS: ALBUMIN 3.6 g/dL (3.2-5.5); ALBUMIN/GLOBULIN RATIO 1.4 (1.0-2.2); BILIRUBIN,TOTAL 0.7 mg/dL (0.2-1.0); CALCIUM 8.5 mg/dL (8.5-10.3); CREATININE 1.1 mg/dL (0.4-1.0); TOTAL PROTEIN 6.2 g/dL (6.7-8.2)
[2018-04-20] MEDS: PANTOPRAZOLE 40 MG VIAL IVP SCH (06:17)
[2018-04-20] MEDS: D5.45NS W/20 MEQ KCL 1,000 ML IV SCH ×2 (09:11→22:21)
--- NOTE | 2018-04-20 10:45 | PROVIDER PROGRESS NOTE ---
Assessment/Plan - Problem List (1) Small bowel obstruction Assessment/Plan: She is not in pain and abdomen is not distended even after she pulled out the ng tube, but XRay does not show contrast in bowel. Dr Alexandre of Surgery involved and following along. Will continue bowel rest, NPO, leave out ng tube unless she is has pain or N/V and continue iv hydration. Possible re-imaging tomorrow. (2) Acute renal insufficiency Assessment/Plan: The creat has improved over the past 3 days with peripheral iv hydration. Monitor BMP daily. (3) Delirium due to medical condition with behavioral disturbance Assessment/Plan: The Flexible Babysitter, Vicki, was able to speak to , who described the patient to have new paranoid delusions for the past 6 weeks. Besides being forgetful for a longer time, she now has been suspicious of the "cheating on her" or "trying to kill her" with her a.m. meds. She has not had medical attention for this change in her mental status, per Vicki's discussion with the . Will order a head CT w/out contrast to look for subacute stroke or other structural abnormality. Haldol was used with success, for her agitation. She has soft restraints ordered, and will continue them if needed. (4) HTN (hypertension) Qualifiers: Hypertension type: essential hypertension Qualified Code(s): I10 - Essential (primary) hypertension Assessment/Plan: Her oral BP meds are on hold, while she is NPO, and she is receiving Clonidine patch and iv Hydralazine, with adequate BP control. (5) Hypernatremia Assessment/Plan: Resolved with D5 free water per iv. Will change to maintenance fluids of D5 1/2 NS w/ 20 mEq of KCl, while she is NPO. (6) Abdominal pain Assessment/Plan: Resolved. - Current Meds Current Meds: Current Medications Generic Name Dose Route Start Last Admin Trade Name Freq PRN Reason Stop Dose Admin Clonidine HCl 1 patch 04/19/18 08:00 04/19/18 07:49 [id number]-[id number]-2 TOP 1 patch Q7D JARED Administration Haloperidol 5 mg 04/19/18 13:40 04/20/18 02:55 Haldol Inj IVP 5 mg Q6H PRN Administration Agitation Hydralazine HCl 20 mg 04/19/18 07:34 04/20/18 00:47 Apresoline Inj IVP 20 mg Q4HR PRN Administration Hypertensive Emergency SBP>180 Acetaminophen 100 mls @ 400 mls/hr 04/18/18 12:59 04/19/18 19:55 Ofirmev IV Infused Q6HR PRN Infusion Pain, Headaches, or T>100.4 Potassium Chloride/Dextrose/Sod Cl 1,000 mls @ 83.333 mls/hr 04/20/18 09:00 04/20/18 09:11 D5.45ns W/20 Meq Kcl IV 83.333 mls/hr .Q12H JARED Administration Ondansetron HCl 4 mg 04/18/18 03:20 04/19/18 07:55 Zofran Inj IVP 4 mg Q6HR PRN Administration Nausea / Vomiting Pantoprazole Sodium 40 mg 04/18/18 07:00 04/20/18 06:17 Protonix IVP 40 mg QDAC JARED Administration Prochlorperazine Edisylate 10 mg 04/18/18 03:20 04/18/18 14:41 Compazine Inj IVP 10 mg Q6HR PRN Administration Nausea / Vomiting Sodium Chloride 10 ml 04/18/18 03:20 04/18/18 06:21 Normal Saline Flush 0.9% IVP 10 ml PRN PRN Administration NEEDED PER PROVIDER ORDERS Sodium Chloride 10 ml 04/18/18 09:00 04/20/18 06:17 Normal Saline Flush 0.9% IVP 10 ml 0100,0900,1700 JARED Administration - Lab Result Fish Bone Diagrams: 04/20/18 05:07 04/20/18 05:07 - Additional Planning My Orders: My Active Orders 04/20/18 09:00 D5.45ns W/20 Meq KCl 1,000 ml IV 83.333 mls/hr 04/20/18 10:41 Head W/O [CT] Routine 04/21/18 05:00 BMP - BASIC METABOLIC PANEL [CHEM] DAILYLAB CBC - COMP BLD CT W/AUTO DIFF [HEME] DAILYLAB 04/22/18 05:00 BMP - BASIC METABOLIC PANEL [CHEM] DAILYLAB CBC - COMP BLD CT W/AUTO DIFF [HEME] DAILYLAB 04/23/18 05:00 BMP - BASIC METABOLIC PANEL [CHEM] DAILYLAB CBC - COMP BLD CT W/AUTO DIFF [HEME] DAILYLAB Subjective - Subjective Patient Reports: Resting Comfortably, Other (She is speaking in [place]. She shakes her head no when questioned in [place] if she is in pain) Objective Vital Signs: Vital Signs - 24 hr 04/19/18 04/19/18 04/20/18 15:48 16:30 00:45 Temperature 37.6 C H Heart Rate [ 109 H 107 H Brachial] Respiratory 16 20 Rate Blood Pressure Blood Pressure 145/113 H 154/66 H 190/98 H [Left Brachial artery] O2 Saturation 96 96 04/20/18 04/20/18 04/20/18 00:47 00:50 00:55 Temperature Heart Rate [ 101 H 106 H Brachial] Respiratory 20 20 Rate Blood Pressure 198/85 H Blood Pressure 198/85 H 188/66 H [Left Brachial artery] O2 Saturation 04/20/18 04/20/18 04/20/18 01:00 01:15 01:30 Temperature Heart Rate [ 120 H 140 H Brachial] Respiratory 20 18 Rate Blood Pressure 130/72 Blood Pressure 170/80 H 146/70 H [Left Brachial artery] O2 Saturation 04/20/18 04/20/18 04/20/18 01:32 01:45 08:50 Temperature 37.0 C Heart Rate [ 116 H 72 81 Brachial] Respiratory 18 18 18 Rate Blood Pressure Blood Pressure 113/95 H 130/72 150/61 H [Left Brachial artery] O2 Saturation 95 Oxygen O2 Source Room air I&O (Last 24 Hrs): Intake and Output Totals x24h 04/18/18 04/19/18 04/20/18 23:59 23:59 23:59 Intake Total 2200 2463 1565 Output Total 2915 2275 400 Balance -146 390 1409 General: Other (Appears comfortable) HEENT: Atraumatic, Mucous membr. moist/pink Neck: Supple, No JVD Neuro: Non Focal Cardiovascular: Regular rate, No murmurs Respiratory: No respiratory distress Abdomen: Soft, Other (Bowel sounds in LLQ only) Extremities: No edema - Results Results: Laboratory Results WBC 11.1 x10^3/uL (4.8-10.8) H 04/20/18 05:07 RBC 3.84 10^6/uL (4.20-5.40) L 04/20/18 05:07 Hgb 11.2 g/dL (12.0-16.0) L 04/20/18 05:07 Hct 34.3 % (37.0-47.0) L 04/20/18 05:07 MCV 89.4 fL (81.0-99.0) 04/20/18 05:07 MCH 29.1 pg (27.0-31.0) 04/20/18 05:07 MCHC 32.5 g/dL (32.0-36.0) 04/20/18 05:07 RDW 13.7 % (12.0-15.0) 04/20/18 05:07 Plt Count 189 10^3/uL (130-450) 04/20/18 05:07 MPV 9.7 fL (7.9-10.8) 04/20/18 05:07 Neut # (Auto) 8.5 10^3/uL (1.5-6.6) H 04/20/18 05:07 Lymph # (Auto) 1.4 10^3/uL (1.5-3.5) L 04/20/18 05:07 [place] # (Auto) 1.2 10^3/uL (0.0-1.0) H 04/20/18 05:07 Eos # (Auto) 0.0 10^3/uL (0.0-0.7) 04/20/18 05:07 Baso # (Auto) 0.0 10^3/uL (0.0-0.1) 04/20/18 05:07 Absolute Nucleated RBC 0.01 x10^3/uL 04/20/18 05:07 Nucleated RBC % 0.0 /100WBC 04/20/18 05:07 Sodium 143 mmol/L (135-145) 04/20/18 05:07 Potassium 3.6 mmol/L (3.5-5.0) 04/20/18 05:07 Chloride 108 mmol/L (101-111) 04/20/18 05:07 Carbon Dioxide 26 mmol/L (21-32) 04/20/18 05:07 Anion Gap 9.0 (6-13) 04/20/18 05:07 BUN 28 mg/dL (6-20) H 04/20/18 05:07 Creatinine 1.1 mg/dL (0.4-1.0) H 04/20/18 05:07 Estimated GFR (MDRD) 48 (>89) L 04/20/18 05:07 Glucose 142 mg/dL (70-100) H 04/20/18 05:07 Calcium 8.5 mg/dL (8.5-10.3) 04/20/18 05:07 Total Bilirubin 0.7 mg/dL (0.2-1.0) 04/20/18 05:07 AST 45 IU/L (10-42) H 04/20/18 05:07 ALT 19 IU/L (10-60) 04/20/18 05:07 Alkaline Phosphatase 48 IU/L (42-121) 04/20/18 05:07 Troponin I < 0.04 ng/mL (<0.49) 04/18/18 00:33 Total Protein 6.2 g/dL (6.7-8.2) L 04/20/18 05:07 Albumin 3.6 g/dL (3.2-5.5) 04/20/18 05:07 Globulin 2.6 g/dL (2.1-4.2) 04/20/18 05:07 Albumin/Globulin Ratio 1.4 (1.0-2.2) 04/20/18 05:07 Lipase 53 U/L (22-51) H 04/18/18 00:33 Urine Color YELLOW 04/18/18 03:10 Urine Clarity CLEAR (CLEAR) 04/18/18 03:10 Urine pH 7.0 PH (5.0-7.5) 04/18/18 03:10 Ur Specific [place] 1.010 (1.002-1.030) 04/18/18 03:10 Urine Protein NEGATIVE mg/dL (NEGATIVE) 04/18/18 03:10 Urine Glucose (UA) NEGATIVE mg/dL (NEGATIVE) 04/18/18 03:10 Urine Ketones NEGATIVE mg/dL (NEGATIVE) 04/18/18 03:10 Urine Occult Blood TRACE-INTA (NEGATIVE) 04/18/18 03:10 Urine Nitrite NEGATIVE (NEGATIVE) 04/18/18 03:10 Urine Bilirubin NEGATIVE (NEGATIVE) 04/18/18 03:10 Urine Urobilinogen 0.2 (NORMAL) E.U./dL (NORMAL) 04/18/18 03:10 Ur Leukocyte Esterase NEGATIVE (NEGATIVE) 04/18/18 03:10 Ur Microscopic Review NOT INDICATED 04/18/18 03:10 Urine Culture Comments NOT INDICATED 04/18/18 03:10 - Procedures Procedures: Procedures ESOPHAGOGASTRODUODENOSCOPY [EGD] W/CLOSED BIOPSY (03/21/14) EXCISION OF LOWER ESOPHAGUS, ENDO, DIAGN (12/09/15) EXCISION OF STOMACH, ENDO, DIAGN (12/09/15)
[2018-04-20] MEDS: ENOXAPARIN 40 MG/0.4 ML SYRINGE SUBQ SCH (11:16)
--- NOTE | 2018-04-20 13:45 | CT Report ---
Reason: Paranoid delusions 6 wks,eval for subacute stroke Procedure Date: 04/20/2018 Accession Number: [id number] / [id number] Procedure: CT - Head W/O CPT Code: FULL RESULT: EXAM: CT HEAD EXAM DATE: 04/20/2018 01:28 PM. CLINICAL HISTORY: Paranoid delusions 6 wks,eval for subacute stroke. COMPARISON: HEAD W/O 08/17/2017 4:34 PM. TECHNIQUE: Multiaxial CT images were obtained from the foramen magnum to the vertex. Reformats: Sagittal and coronal. IV contrast: None. In accordance with CT protocol optimization, one or more of the following dose reduction techniques were utilized for this exam: automated exposure control, adjustment of mA and/or KV based on patient size, or use of iterative reconstructive technique. FINDINGS: Parenchyma: Negative for intracranial hemorrhage. No midline shift or mass-effect. The puckett-white matter junction in the bilateral parietal lobes appears somewhat indistinct, but appears similar to previous head CT of 08/17/2017 for a artifact, however a subacute infarct in this area is difficult to exclude. No significant focal encephalomalacia. Extraaxial Spaces: Normal for age. No subdural or epidural collections identified. Ventricles: Normal in size and position. Sinuses and Orbits: Imaged paranasal sinuses, orbits, and mastoids show no significant abnormality. Bones: No evidence of fracture or calvarial defect. Other: None. IMPRESSION: 1. No encephalomalacia or definite findings of subacute infarct, somewhat limited in bilateral parietal lobes. Overall without significant change in appearance since 08/17/2017. [facility]
[2018-04-20] MEDS: ACETAMINOPHEN 1,000 MG/100 ML 100 ML IV PRN (16:29)
[2018-04-20] MEDS: ONDANSETRON 4 MG/2 ML VIAL IVP PRN (16:29)
--- NOTE | 2018-04-20 16:50 | XRAY Report ---
Reason: fu contrast in sbo Procedure Date: 04/20/2018 Accession Number: [id number] / [id number] Procedure: XR - Abdomen 2 View X-Ray CPT Code: 73339 FULL RESULT: EXAM: ABDOMEN RADIOGRAPHY EXAM DATE: 04/20/2018 06:51 AM. CLINICAL HISTORY: Fu contrast in sbo. COMPARISON: None. TECHNIQUE: 2 views. FINDINGS: Bowel Gas Pattern: Air-filled loops of layering proximal midabdominal small bowel are seen. Faint residual contrast is seen in fluid-filled loops of more distal small bowel. It is unclear if contrast has reached the colon. Free Air: None. Other: Degenerative change and lumbar levoscoliosis in the spine as before IMPRESSION: Contrast has become progressively diluted with faint residual in prominent loops of small bowel. Contrast cannot be confirmed to have reached the colon. RADIA
--- NOTE | 2018-04-20 21:11 | XRAY Report ---
Reason: NG tube placement Procedure Date: 04/20/2018 Accession Number: [id number] / [id number] Procedure: XR - Chest 1 View X-Ray CPT Code: 27096 FULL RESULT: EXAM: CHEST RADIOGRAPHY EXAM DATE: 04/20/2018 07:58 PM. CLINICAL HISTORY: NG tube placement. COMPARISON: CHEST 2 VIEW 06/20/2017 9:15 AM. TECHNIQUE: 1 view. FINDINGS: Lungs/Pleura: Mild interstitial prominence. No localized infiltrate, consolidation, effusion, or pneumothorax. Mediastinum: Within exam limitations, the cardiomediastinal contour is normal. Other: Nasogastric tube in mid to upper body of stomach. IMPRESSION: NG tube tip in mid to upper body of stomach. RADIA
[2018-04-21] MEDS ORDERED: LORazepam 2 MG/ML VIAL IVP PRN (01:20)
[2018-04-21] MEDS: SODIUM CHLORIDE FLUSH 0.9% 10 ML SYRINGE IVP SCH ×2 (01:31→08:29)
--- NOTE | 2018-04-21 03:02 | XRAY Report ---
Reason: NG tube placement Procedure Date: 04/21/2018 Accession Number: [id number] / [id number] Procedure: XR - Chest 1 View X-Ray CPT Code: 38536 FULL RESULT: EXAM: CHEST RADIOGRAPHY EXAM DATE: 04/21/2018 02:45 AM. CLINICAL HISTORY: NG tube placement. COMPARISON: CHEST 1 VIEW 04/20/2018 7:45 PM. TECHNIQUE: 1 view. FINDINGS: Lungs/Pleura: There are no acute infiltrates. There is a questionable nodular density in the right upper lobe which may be vascular. Findings are somewhat more apparent than on the prior study. Mediastinum: Within exam limitations, the cardiomediastinal contour is normal. Other: NG tube tip is in the stomach. IMPRESSION: 1. NG tube tip in the stomach. 2. Questionable nodular density projecting over the right upper lobe. RADIA
[2018-04-21] MEDS ORDERED: PHENOL THROAT SPRAY 177 ML MM PRN (04:48)
[2018-04-21 05:15] LABS: BASOPHILS # (AUTO) 0.1 10^3/uL (0.0-0.1); BASOPHILS % (AUTO) 0.8 %; EOSINOPHILS % (AUTO) 0.5 %; HGB - HEMOGLOBIN 11.3 g/dL (12.0-16.0); LYMPHOCYTES # (AUTO) 1.4 10^3/uL (1.5-3.5); LYMPHOCYTES % (AUTO) 18.5 %; MEAN CORPUSCULAR HEMOGLOBIN 29.6 pg (27.0-31.0); MEAN CORPUSCULAR HGB CONC 33.6 g/dL (32.0-36.0); MEAN PLATELET VOLUME 9.6 fL (7.9-10.8); MONOCYTES # (AUTO) 0.8 10^3/uL (0.0-1.0); MONOCYTES % (AUTO) 11.3 %; NEUTROPHILS % (AUTO) 68.9 %; PLT - PLATELET COUNT 207 10^3/uL (130-450); RED CELL DISTRIBUTION WIDTH 13.9 % (12.0-15.0); WHITE BLOOD COUNT 7.3 x10^3/uL (4.8-10.8)
[2018-04-21 05:30] LABS: CALCIUM 8.4 mg/dL (8.5-10.3); CREATININE 1.1 mg/dL (0.4-1.0)
--- NOTE | 2018-04-21 06:33 | XRAY Report ---
Reason: f/u sbo Procedure Date: 04/21/2018 Accession Number: [id number] / [id number] Procedure: XR - Abdomen 2 View X-Ray CPT Code: 31017 FULL RESULT: EXAM: ABDOMEN RADIOGRAPHY EXAM DATE: 04/21/2018 06:17 AM. CLINICAL HISTORY: F/u sbo. COMPARISON: ABDOMEN 2 VIEW 04/20/2018 6:26 AM. TECHNIQUE: 2 views. FINDINGS: Lung Bases: Unremarkable. Bowel Gas Pattern: There is moderate gas distention of several loops of proximal to mid small bowel compatible with a partial or early complete small bowel obstruction. NG tube tip is in the stomach. Free Air: None. Other: None. IMPRESSION: 1. Partial or early complete small bowel obstruction. 2. NG tube tip in the stomach. RADIA
[2018-04-21] MEDS: PANTOPRAZOLE 40 MG VIAL IVP SCH ×2 (07:01→08:30)
[2018-04-21] MEDS: ENOXAPARIN 40 MG/0.4 ML SYRINGE SUBQ SCH (08:19)
--- NOTE | 2018-04-21 08:46 | ANESTHESIA ---
Pre-Anesthesia VS, & Labs - Diagnosis Diagnosis 1.Small bowel obstruction, high grade partial; no clinical evidence of closed loop SBO or strangulation obstruction or acute surgical abdomen; etiology likely due to adhesions; she appears to be improving with present management. 2. Dilated extrahepatic bile ducts in 78 yo female s/p cholecystectomy. Given nl LFTs I suspect this is due to her age and prior cholecystectomy rather than obstruction, and given the absence of CT findings concerning for a mass, I would not evaluate any further. 3. GERD, recurrent s/p antireflux surgery. - Procedure exploratory laparoscopy, lysis of adhesions, possible small bowel resection Vital Signs: Temp Pulse Resp BP Pulse Ox 37.1 C 94 18 131/57 H 97 04/21/18 07:53 04/21/18 07:53 04/21/18 07:53 04/21/18 07:53 04/21/18 07:53 Height 4 ft 11 in Weight (kg) 58 kg Body Mass Index 25.8 - NPO >8 hours - Is Patient ?: Not Applicable - Lab Results Current Lab Results: Laboratory Tests 04/21/18 04:55: Sodium 141, Potassium 3.6, Chloride 107, Carbon Dioxide 24, Anion Gap 10.0, BUN 28 H, Creatinine 1.1 H, Estimated GFR (MDRD) 48 L, Glucose 130 H, Calcium 8.4 L 04/21/18 04:55: WBC 7.3, RBC 3.80 L, Hgb 11.3 L, Hct 33.5 L, MCV 88.0, MCH 29.6, MCHC 33.6, RDW 13.9, Plt Count 207, MPV 9.6, Neut # (Auto) 5.0, Lymph # (Auto) 1.4 L, [place] # (Auto) 0.8, Eos # (Auto) 0.0, Baso # (Auto) 0.1, Absolute Nucleated RBC 0.00, Nucleated RBC % 0.0 04/20/18 05:07: Sodium 143, Potassium 3.6, Chloride 108, Carbon Dioxide 26, Anion Gap 9.0, BUN 28 H, Creatinine 1.1 H, Estimated GFR (MDRD) 48 L, Glucose 142 H, Calcium 8.5, Total Bilirubin 0.7, AST 45 H, ALT 19, Alkaline Phosphatase 48, Total Protein 6.2 L, Albumin 3.6, Globulin 2.6, Albumin/Globulin Ratio 1.4 04/20/18 05:07: WBC 11.1 H, RBC 3.84 L, Hgb 11.2 L, Hct 34.3 L, MCV 89.4, MCH 29.1, MCHC 32.5, RDW 13.7, Plt Count 189, MPV 9.7, Neut # (Auto) 8.5 H, Lymph # (Auto) 1.4 L, [place] # (Auto) 1.2 H, Eos # (Auto) 0.0, Baso # (Auto) 0.0, Absolute Nucleated RBC 0.01, Nucleated RBC % 0.0 04/19/18 05:30: WBC 11.3 H, RBC 4.12 L, Hgb 12.1, Hct 36.8 L, MCV 89.4, MCH 29.4, MCHC 32.9, RDW 14.0, Plt Count 220, MPV 9.5, Neut # (Auto) 9.8 H, Lymph # (Auto) 0.7 L, [place] # (Auto) 0.8, Eos # (Auto) 0.0, Baso # (Auto) 0.0, Absolute Nucleated RBC 0.00, Nucleated RBC % 0.0 04/19/18 05:30: Sodium 155 H*, Potassium 4.8, Chloride 120 H*, Carbon Dioxide 24, Anion Gap 11.0, BUN 30 H, Creatinine 1.2 H, Estimated GFR (MDRD) 43 L, Glucose 146 H, Calcium 9.0, Total Bilirubin 0.5, AST 22, ALT 14, Alkaline Phosphatase 56, Total Protein 6.8, Albumin 3.9, Globulin 2.9, Albumin/Globulin Ratio 1.3 04/18/18 00:33: Troponin I < 0.04 04/18/18 00:33: Sodium 145, Potassium 3.9, Chloride 110, Carbon Dioxide 27, Anion Gap 8.0, BUN 30 H, Creatinine 1.2 H, Estimated GFR (MDRD) 43 L, Glucose 108 H, Calcium 9.3, Total Bilirubin 0.6, AST 25, ALT 18, Alkaline Phosphatase 66, Total Protein 7.7, Albumin 4.4, Globulin 3.3, Albumin/Globulin Ratio 1.3, Lipase 53 H 04/18/18 00:33: WBC 6.8, RBC 4.37, Hgb 12.6, Hct 37.8, MCV 86.5, MCH 28.8, MCHC 33.3, RDW 13.0, Plt Count 231, MPV 9.3, Neut # (Auto) 4.3, Lymph # (Auto) 1.7, [place] # (Auto) 0.7, Eos # (Auto) 0.1, Baso # (Auto) 0.0, Absolute Nucleated RBC 0.00, Nucleated RBC % 0.0 Fish Bones: 04/21/18 04:55 04/21/18 04:55 Home Medications and Allergies Home Medications: Ambulatory Orders Acetaminophen [Tylenol] 1 tab PO Q8HR PRN 04/18/18 Atorvastatin Calcium 10 mg PO QPM 04/18/18 Hydrochlorothiazide 12.5 mg PO DAILY 04/18/18 Metoprolol Succinate [Toprol Xl] 25 mg PO DAILY 04/18/18 Omeprazole 20 mg PO QPM 04/18/18 Trazodone HCl 50 mg PO QPM 04/18/18 clonazePAM [Clonazepam] 0.5 mg PO BID PRN 04/18/18 Active Medications Clonidine HCl ([id number]-Rwx-5) 1 patch TOP Q7D [facility] Last Admin: 04/19/18 07:49 Dose: 1 patch Enoxaparin Sodium (Lovenox) 40 mg SUBQ DAILY [facility] Last Admin: 04/21/18 08:19 Dose: Not Given Haloperidol (Haldol Inj) 5 mg IVP Q6H PRN PRN Reason: Agitation Last Admin: 04/20/18 11:10 Dose: 5 mg Hydralazine HCl (Apresoline Inj) 20 mg IVP Q4HR PRN PRN Reason: Hypertensive Emergency SBP>180 Last Admin: 04/20/18 00:47 Dose: 20 mg Acetaminophen (Ofirmev) 100 mls @ 400 mls/hr IV Q6HR PRN PRN Reason: Pain, Headaches, or T>100.4 Last Infusion: 04/20/18 17:24 Dose: Infused Potassium Chloride/Dextrose/Sod Cl (D5.45ns W/20 Meq Kcl) 1,000 mls @ 83.333 mls/hr IV .Q12H [facility] Last Admin: 04/20/18 22:21 Dose: 83.333 mls/hr Lorazepam (Ativan Inj (Vial)) 0.5 mg IVP ONCE PRN PRN Reason: Anxiety Stop: 04/22/18 01:19 Last Admin: 04/21/18 01:31 Dose: 0.5 mg Ondansetron HCl (Zofran Inj) 4 mg IVP Q6HR PRN PRN Reason: Nausea / Vomiting Last Admin: 04/20/18 16:29 Dose: 4 mg Pantoprazole Sodium (Protonix) 40 mg IVP QDAC [facility] Last Admin: 04/21/18 08:30 Dose: 40 mg Phenol/Menthol (Chloraseptic) 2 sprays MM Q2HR PRN PRN Reason: Throat Pain Prochlorperazine Edisylate (Compazine Inj) 10 mg IVP Q6HR PRN PRN Reason: Nausea / Vomiting Last Admin: 04/18/18 14:41 Dose: 10 mg Sodium Chloride (Normal Saline Flush 0.9%) 10 ml IVP PRN PRN PRN Reason: NEEDED PER PROVIDER ORDERS Last Admin: 04/18/18 06:21 Dose: 10 ml Sodium Chloride (Normal Saline Flush 0.9%) 10 ml IVP 0100,0900,1700 [facility] Last Admin: 04/21/18 08:29 Dose: 10 ml NIFEdipine [Nifedipine ER] 60 mg PO DAILY 03/12/14 Nitroglycerin [Nitrostat] 0.4 mg SL Q5MIN PRN 03/12/14 Aspirin 81 mg ORAL DAILY 11/05/16 Losartan [Cozaar] 50 mg ORAL DAILY 11/05/16 Mirtazapine 30 mg ORAL QPM 11/05/16 Gabapentin 100 mg PO BID 04/05/17 Multivitamin/Iron/Folic Acid [Centrum Adults Tablet] 1 tab PO DAILY 04/05/17 Acetaminophen [Tylenol] 1 tab PO Q8HR PRN 04/18/18 Atorvastatin Calcium 10 mg PO QPM 04/18/18 Hydrochlorothiazide 12.5 mg PO DAILY 04/18/18 Metoprolol Succinate [Toprol Xl] 25 mg PO DAILY 04/18/18 Omeprazole 20 mg PO QPM 04/18/18 Trazodone HCl 50 mg PO QPM 04/18/18 clonazePAM [Clonazepam] 0.5 mg PO BID PRN 04/18/18 Allergies/Adverse Reactions: Allergies Allergy/AdvReac Type Severity Reaction Status Date / Time No Known Drug Allergies Allergy Verified 04/18/18 00:14 Anes History & Medical History - Anesthetic History Anesthesia Complications: reports: No previous complications Family history of Anesthesia Complications: Denies Family history of Malignant Hyperthermia: Denies (anesthesia history obtained from of the patient) - Medical History Cardiovascular: reports: Hypertension, High cholesterol, Angina Pulmonary: reports: None Gastrointestinal: reports: GERD, Ulcers Urinary: reports: None Musculoskeletal: reports: Osteoarthritis Endocrine/Autoimmune: reports: None Blood Disorders: reports: None Skin: reports: None Smoking Status: Never smoker - Surgical History General: Cholecystectomy, Hiatal hernia repair, Other (ventral hernia repair) Gynecologic: Hysterectomy, Oophrectomy Orthopedic: Knee replacement Exam General: Mild distress, Other (not oriented) Dental: Other (missing teeth) Mouth Openin Fingerbreadth Neck Mobility: Normal Mallampati classification: III Thyromental Distance: 4-6 cm Respiratory: Lungs clear, Normal breath sounds, No respiratory distress, No accessory muscle use Cardiovascular: Regular rate, Normal S1, Normal S2, No murmurs Mental/Cognitive Status: Confused Cognitive Status: Dementia Plan Anesthesia Type: General Consent for Procedure(s) Verified and Reviewed: Yes Code Status: Attempt Resuscitation ASA classification: 3-Severe systemic disease Is this case an emergency?: No
--- NOTE | 2018-04-21 09:00 | PROCEDURE REPORT ---
Hospitalist Procedure Note - Procedure Note Procedure Note: Late entry for 04/20/2018: Progress Note for 04/20/18 S: no abd pain, N.V with NG out until late afternoon, when pt developed recurrent N/V and crampy abdominal pain O: afebrile, VSS alert, cooperative, uncomfortable appearing Chest: clear to ausculation Abd: minimally distended; hypoactive bowel tones; soft, non tender, no masses or organomegaly Ext: no C/C/E or calf muscle tenderness 2 view abd films: persistent dilated loops of small bowel with a/f levels; some gas in colon persists. Labs: electrolytes nl, CBC nl Imp: high grade partial SBO, no longer improving with bowel rest; failed trial of NG tube out; abd remains benign and fluid/electrolyte status has improved. Rec: resume NG suction; reassess in am; plan surgery if not significantly improved. discussed with pt's and hospitalists, who are in agreement.
--- NOTE | 2018-04-21 09:03 | PROVIDER PROGRESS NOTE ---
Assessment/Plan - Problem List (1) Small bowel obstruction Assessment/Plan: No longer improving; high grade partial obstruction persists. Plan: to OR today for expl lap, lysis adhesions, possible small bowel resection. PAR conference with patient's , POA and consent obtained. - Current Meds Current Meds: Current Medications Generic Name Dose Route Start Last Admin Trade Name Freq PRN Reason Stop Dose Admin Clonidine HCl 1 patch 04/19/18 08:00 04/19/18 07:49 [id number] TOP 1 patch Q7D JARED Administration Enoxaparin Sodium 40 mg 04/20/18 10:00 04/21/18 08:19 Lovenox SUBQ Not Given DAILY JARED Haloperidol 5 mg 04/19/18 13:40 04/20/18 11:10 Haldol Inj IVP 5 mg Q6H PRN Administration Agitation Hydralazine HCl 20 mg 04/19/18 07:34 04/20/18 00:47 Apresoline Inj IVP 20 mg Q4HR PRN Administration Hypertensive Emergency SBP>180 Acetaminophen 100 mls @ 400 mls/hr 04/18/18 12:59 04/20/18 17:24 Ofirmev IV Infused Q6HR PRN Infusion Pain, Headaches, or T>100.4 Potassium Chloride/Dextrose/Sod Cl 1,000 mls @ 83.333 mls/hr 04/20/18 09:00 04/20/18 22:21 D5.45ns W/20 Meq Kcl IV 83.333 mls/hr .Q12H JARED Administration Lorazepam 0.5 mg 04/21/18 01:20 04/21/18 01:31 Ativan Inj (Vial) IVP 04/22/18 01:19 0.5 mg ONCE PRN Administration Anxiety Ondansetron HCl 4 mg 04/18/18 03:20 04/20/18 16:29 Zofran Inj IVP 4 mg Q6HR PRN Administration Nausea / Vomiting Pantoprazole Sodium 40 mg 04/18/18 07:00 04/21/18 08:30 Protonix IVP 40 mg QDAC JARED Administration Prochlorperazine Edisylate 10 mg 04/18/18 03:20 04/18/18 14:41 Compazine Inj IVP 10 mg Q6HR PRN Administration Nausea / Vomiting Sodium Chloride 10 ml 04/18/18 03:20 04/18/18 06:21 Normal Saline Flush 0.9% IVP 10 ml PRN PRN Administration NEEDED PER PROVIDER ORDERS Sodium Chloride 10 ml 04/18/18 09:00 04/21/18 08:29 Normal Saline Flush 0.9% IVP 10 ml 0100,0900,1700 JARED Administration - Lab Result Lab results reviewed: Yes Fish Bone Diagrams: 04/21/18 04:55 04/21/18 04:55 - Diagnostic Imaging Results Diagnostic Imaging Results: Final report reviewed, Read independently Diagnostic Imaging Results Comments: persistent dilated loops of small bowel with a/f levels; small amount of gas in colon. - Additional Planning Condition/Complexity: Stable My Orders: My Active Orders 04/20/18 10:00 Enoxaparin [Lovenox] 40 mg SUBQ DAILY Plan Discussed with:: Patient, Family, Other (hospitalists) Time Spent: 15-30 minutes Subjective - Subjective Patient Reports: Resting Comfortably, Abdominal Pain (c/o mild abd discomfort) Objective Vital Signs: Vital Signs - 24 hr 04/20/18 04/21/18 04/21/18 16:00 01:18 07:53 Temperature 37.0 C 37.2 C 37.1 C Heart Rate [ 72 68 94 Brachial] Respiratory 18 18 18 Rate Blood Pressure 134/58 H 97/63 131/57 H [Left Brachial artery] O2 Saturation 95 96 97 Oxygen O2 Source Room air I&O (Last 24 Hrs): Intake and Output Totals x24h 04/19/18 04/20/18 04/21/18 23:59 23:59 23:59 Intake Total 2463 3205 Output Total 2275 3100 400 Balance 188 105 -400 General: Cooperative, No acute distress HEENT: Other (mucus membranes slightly dry) Neck: No JVD Cardiovascular: Regular rate, No murmurs, Gallops, Rubs Respiratory: Chest non-tender, No respiratory distress, Breath sounds nml Abdomen: Soft, No tenderness, No hepatospenomegaly, No masses, Other (hypoactive bowel tones) Extremities: No cyanosis, No edema, No tenderness/swelling - Results Results: Laboratory Results WBC 7.3 x10^3/uL (4.8-10.8) 04/21/18 04:55 RBC 3.80 10^6/uL (4.20-5.40) L 04/21/18 04:55 Hgb 11.3 g/dL (12.0-16.0) L 04/21/18 04:55 Hct 33.5 % (37.0-47.0) L 04/21/18 04:55 MCV 88.0 fL (81.0-99.0) 04/21/18 04:55 MCH 29.6 pg (27.0-31.0) 04/21/18 04:55 MCHC 33.6 g/dL (32.0-36.0) 04/21/18 04:55 RDW 13.9 % (12.0-15.0) 04/21/18 04:55 Plt Count 207 10^3/uL (130-450) 04/21/18 04:55 MPV 9.6 fL (7.9-10.8) 04/21/18 04:55 Neut # (Auto) 5.0 10^3/uL (1.5-6.6) 04/21/18 04:55 Lymph # (Auto) 1.4 10^3/uL (1.5-3.5) L 04/21/18 04:55 [place] # (Auto) 0.8 10^3/uL (0.0-1.0) 04/21/18 04:55 Eos # (Auto) 0.0 10^3/uL (0.0-0.7) 04/21/18 04:55 Baso # (Auto) 0.1 10^3/uL (0.0-0.1) 04/21/18 04:55 Absolute Nucleated RBC 0.00 x10^3/uL 04/21/18 04:55 Nucleated RBC % 0.0 /100WBC 04/21/18 04:55 Sodium 141 mmol/L (135-145) 04/21/18 04:55 Potassium 3.6 mmol/L (3.5-5.0) 04/21/18 04:55 Chloride 107 mmol/L (101-111) 04/21/18 04:55 Carbon Dioxide 24 mmol/L (21-32) 04/21/18 04:55 Anion Gap 10.0 (6-13) 04/21/18 04:55 BUN 28 mg/dL (6-20) H 04/21/18 04:55 Creatinine 1.1 mg/dL (0.4-1.0) H 04/21/18 04:55 Estimated GFR (MDRD) 48 (>89) L 04/21/18 04:55 Glucose 130 mg/dL (70-100) H 04/21/18 04:55 Calcium 8.4 mg/dL (8.5-10.3) L 04/21/18 04:55 Total Bilirubin 0.7 mg/dL (0.2-1.0) 04/20/18 05:07 AST 45 IU/L (10-42) H 04/20/18 05:07 ALT 19 IU/L (10-60) 04/20/18 05:07 Alkaline Phosphatase 48 IU/L (42-121) 04/20/18 05:07 Troponin I < 0.04 ng/mL (<0.49) 04/18/18 00:33 Total Protein 6.2 g/dL (6.7-8.2) L 04/20/18 05:07 Albumin 3.6 g/dL (3.2-5.5) 04/20/18 05:07 Globulin 2.6 g/dL (2.1-4.2) 04/20/18 05:07 Albumin/Globulin Ratio 1.4 (1.0-2.2) 04/20/18 05:07 Lipase 53 U/L (22-51) H 04/18/18 00:33 Urine Color YELLOW 04/18/18 03:10 Urine Clarity CLEAR (CLEAR) 04/18/18 03:10 Urine pH 7.0 PH (5.0-7.5) 04/18/18 03:10 Ur Specific [place] 1.010 (1.002-1.030) 04/18/18 03:10 Urine Protein NEGATIVE mg/dL (NEGATIVE) 04/18/18 03:10 Urine Glucose (UA) NEGATIVE mg/dL (NEGATIVE) 04/18/18 03:10 Urine Ketones NEGATIVE mg/dL (NEGATIVE) 04/18/18 03:10 Urine Occult Blood TRACE-INTA (NEGATIVE) 04/18/18 03:10 Urine Nitrite NEGATIVE (NEGATIVE) 04/18/18 03:10 Urine Bilirubin NEGATIVE (NEGATIVE) 04/18/18 03:10 Urine Urobilinogen 0.2 (NORMAL) E.U./dL (NORMAL) 04/18/18 03:10 Ur Leukocyte Esterase NEGATIVE (NEGATIVE) 04/18/18 03:10 Ur Microscopic Review NOT INDICATED 04/18/18 03:10 Urine Culture Comments NOT INDICATED 04/18/18 03:10 - Procedures Procedures: Procedures ESOPHAGOGASTRODUODENOSCOPY [EGD] W/CLOSED BIOPSY (03/21/14) EXCISION OF LOWER ESOPHAGUS, ENDO, DIAGN (12/09/15) EXCISION OF STOMACH, ENDO, DIAGN (12/09/15) ABX Reporting Has patient been on IV antibiotics over the past 48 hours?: No
[2018-04-21] MEDS ORDERED: cefOXitin 2 GM in SODIUM CHLORIDE 0.9% MINIBAG 100 ML IV SCH (10:00)
[2018-04-21] MEDS ORDERED: BUPIVACAINE 0.5%-EPI 1:200000 PF 30 ML VIAL ONE (10:13)
[2018-04-21] MEDS ORDERED: LACTATED RINGERS 1,000 ML IV ONE ×2 (10:41→11:48)
[2018-04-21] MEDS ORDERED: ceFAZolin 2 GM/50 ML 2 GM/50 ML BAG IV ONE ×2 (10:52→12:48)
[2018-04-21] MEDS ORDERED: BUPIVACAINE 0.5% PF 30 ML VIAL INFIL ONE (11:18)
--- NOTE | 2018-04-21 12:39 | OPERATIVE REPORT ---
Operative Report - General Admit Date: 04/18/18 Procedure Date: 04/21/18 Planned Procedure: Exploratory laparotomy Pre-Op Diagnosis: small bowel obstruction Procedure Performed: Exploratory laparotomy, reduction of internal hernia, repair of internal hernia Post Op Diagnosis: same secondary to internal hernia - Procedure Note Primary Surgeon: Santana Alexandre MD [facility] Anesthesia Provider: Omar Ho MD Anesthesia Technique: General ET tube Estimated Blood Loss (mL): 100 Urine Output (mL): 30 Complications: None
[2018-04-21] MEDS ORDERED: LIDOCAINE-MPF 2% 5 ML VIAL IM ONE (12:48)
[2018-04-21] MEDS ORDERED: PROPOFOL 200 MG/20 ML VIAL IVP ONE (12:48)
[2018-04-21] MEDS ORDERED: ROCURONIUM 50 MG/5 ML VIAL IVP ONE (12:48)
[2018-04-21] MEDS ORDERED: fentaNYL 250 MCG/5 ML VIAL IVP ONE (12:48)
[2018-04-21] MEDS: fentaNYL 100 MCG/2 ML VIAL ONE ×2 (12:53→13:21)
[2018-04-21] MEDS: HYDROmorphone 1 MG/ML CARPUJECT ONE ×2 (12:59→13:07)
[2018-04-21] MEDS: D5.45NS W/20 MEQ KCL 1,000 ML IV SCH (14:43)
[2018-04-21] MEDS: HYDROmorphone 0.5 MG/0.5 ML SYRINGE IVP PRN ×3 (15:04→19:35)
[2018-04-21] MEDS: SODIUM CHLORIDE FLUSH 0.9% 10 ML SYRINGE IVP PRN ×3 (15:04→21:55)
--- NOTE | 2018-04-21 15:47 | OPERATIVE REPORT ---
DATE OF SERVICE: 04/21/2018 Physician: Santana Alexandre MD PREOPERATIVE DIAGNOSIS: Small-bowel obstruction. POSTOPERATIVE DIAGNOSIS: Small-bowel obstruction secondary to internal hernia. PROCEDURE PERFORMED: Exploratory laparotomy, relief of obstruction by reduction of internal hernia a nd repair of internal hernia. ANESTHESIA: General endotracheal by Omar Ho MD. SURGEON: Santana Alexandre MD. ESTIMATED BLOOD LOSS: 100 mL. URINE OUTPUT: 30 mL. COMPLICATIONS: None. DRAINS: None. FINDINGS: A 10 cm segment of distal jejunum or proximal ileum was incarcerated in an internal hernia created by a mesenteric defect in the sigmoid colon. This defect was approximately 2-3 cm in diamet er and approximately 4-5 cm deep. No other significant adhesions were present in the lower abdomen. The upper abdomen was notable for extensive adhesions, which limited exploration; however, the visua lized or palpable portions of the liver and stomach were normal. The distal small bowel was decompre ssed. The proximal small bowel was dilated, but viable. The uterus, gallbladder and appendix were s urgically removed. No tubes or ovaries were identified. The involved segment of bowel was thought t o be contused, but viable. Doppler interrogation of the mesenteric circulation showed arterial flow into the involved segment. INDICATIONS: Patient is a 78-year-old woman with 3 days of periumbilical pain, nausea and vomiting. Evaluation revealed evidence of a high-grade partial mid small-bowel obstruction. A Gastrografin ch allenge test was performed and failed to result in passage of contrast into the colon. She appeared to temporarily improve, however. Her nasogastric tube, which the patient had removed, was left out. However, recurrent nausea and vomiting developed and patient was clearly felt to have a persistent h igh-grade partial small-bowel obstructions so was advised to undergo exploratory laparotomy with defi nitive treatment based on operative findings. She is status post multiple prior surgical procedures. TECHNIQUE: After informed consent from patient's , who is her [id number], patient was taken to the operating room where she was placed under general endotracheal anesthesia. Preoperative preparation included administration of 1 gram of cefoxitin intravenously and application of sequenti al calf compression boots. Her abdomen was prepared with ChloraPrep solution and draped in the usual sterile fashion. A lower midline incision was used to enter the peritoneal cavity. The incision was carried down thro ugh the layers of the abdominal wall and the peritoneum was identified and entered sharply. The abdo men was explored with findings as noted above. The incarcerated segment of small bowel was gently pu lled free from the incarcerated internal hernia, thereby reducing it. The involved bowel was observe d and inspected and interrogated with a Doppler showing pulsatile flow. The involved segment was kojo matous and hemorrhagic, but viable. The internal hernia defect was closed with continuous locking 3- 0 Vicryl sutures. After hemostasis was assured, the abdominal cavity was copiously irrigated with wa rm saline following which abdominal contents were returned to usual anatomic location. The incision was closed in layers using continuous 0 Vicryl to reapproximate the peritoneum and posterior rectus s chelita below the umbilicus followed by doubled 0 PDS continuous suture to reapproximate the midline fa scia above and the anterior fascia below. The subcutaneous tissues were reapproximated with 3-0 Vicr yl and the skin was closed with truman. Anesthesia was terminated and patient was transferred to [facility] recovery room in satisfactory condition. Sponge and needle counts were correct x2. No drains were used. TD: 04/21/2018 12:51
--- NOTE | 2018-04-21 17:36 | PROVIDER PROGRESS NOTE ---
Assessment/Plan - Problem List (1) Small bowel obstruction Assessment/Plan: The patient had enesis last nite and needed NG tube decompression and this am had 2000 cc loretta. She was taken for surgery and had a loop of bowel released from a pocket. NG tube in place and she feels better post-op. Continue to advance GI orders as tolerated. (2) Acute renal insufficiency Assessment/Plan: Improved on iv fluids since admission. Monitor BMP daily. (3) Delirium due to medical condition with behavioral disturbance Assessment/Plan: A CVA was ruled out by CT of brainn done yesterday. The pest control worker helper had contact with friends and . The patient did vocalize suicidal ideation. Will order 1:1 observation. Will reach out for a tele-psych eval (in [place]) tomorrow, since she had general anesthesia today. (4) HTN (hypertension) Qualifiers: Hypertension type: essential hypertension Qualified Code(s): I10 - Essential (primary) hypertension Assessment/Plan: Stable on current parenteral management. (5) Hypernatremia Assessment/Plan: Resolved - Current Meds Current Meds: Current Medications Generic Name Dose Route Start Last Admin Trade Name Freq PRN Reason Stop Dose Admin Clonidine HCl 1 patch 04/19/18 08:00 04/19/18 07:49 [id number] TOP 1 patch Q7D JARED Administration Enoxaparin Sodium 40 mg 04/20/18 10:00 04/21/18 08:19 Lovenox SUBQ Not Given DAILY JARED Haloperidol 5 mg 04/19/18 13:40 04/20/18 11:10 Haldol Inj IVP 5 mg Q6H PRN Administration Agitation Hydralazine HCl 20 mg 04/19/18 07:34 04/20/18 00:47 Apresoline Inj IVP 20 mg Q4HR PRN Administration Hypertensive Emergency SBP>180 Hydromorphone HCl 0.5 mg 04/21/18 12:42 04/21/18 17:16 Dilaudid Inj Syringe IVP 0.5 mg Q2H PRN Administration PAIN Acetaminophen 100 mls @ 400 mls/hr 04/18/18 12:59 04/20/18 17:24 Ofirmev IV Infused Q6HR PRN Infusion Pain, Headaches, or T>100.4 Potassium Chloride/Dextrose/Sod Cl 1,000 mls @ 100 mls/hr 04/21/18 12:43 04/21/18 14:43 D5.45ns W/20 Meq Kcl IV 100 mls/hr .Q10H JARED Administration Ondansetron HCl 4 mg 04/18/18 03:20 04/20/18 16:29 Zofran Inj IVP 4 mg Q6HR PRN Administration Nausea / Vomiting Pantoprazole Sodium 40 mg 04/18/18 07:00 04/21/18 08:30 Protonix IVP 40 mg QDAC JARED Administration Sodium Chloride 10 ml 04/18/18 03:20 04/21/18 15:04 Normal Saline Flush 0.9% IVP 10 ml PRN PRN Administration NEEDED PER PROVIDER ORDERS Sodium Chloride 10 ml 04/18/18 09:00 04/21/18 08:29 Normal Saline Flush 0.9% IVP 10 ml 0100,0900,1700 JARED Administration - Lab Result Fish Bone Diagrams: 04/21/18 04:55 04/21/18 04:55 - Additional Planning My Orders: My Active Orders 04/21/18 04:48 Phenol [Chloraseptic] 2 sprays MM Q2HR PRN 04/21/18 10:30 1:1 Observation [RC] once 04/22/18 05:00 BMP - BASIC METABOLIC PANEL [CHEM] DAILYLAB CBC - COMP BLD CT W/AUTO DIFF [HEME] DAILYLAB 04/23/18 05:00 BMP - BASIC METABOLIC PANEL [CHEM] DAILYLAB CBC - COMP BLD CT W/AUTO DIFF [HEME] DAILYLAB Subjective - Subjective Patient Reports: Feeling Better Objective Vital Signs: Vital Signs - 24 hr 04/21/18 04/21/18 04/21/18 01:18 07:53 12:34 Temperature 37.2 C 37.1 C 36.6 C Heart Rate 97 Heart Rate [ 68 94 Brachial] Respiratory 18 18 18 Rate Blood Pressure 180/94 H Blood Pressure 97/63 131/57 H [Left Brachial artery] O2 Saturation 96 97 100 04/21/18 04/21/18 04/21/18 12:40 12:45 12:50 Temperature 36.2 C L Heart Rate 91 91 94 Heart Rate [ Brachial] Respiratory 12 16 20 Rate Blood Pressure 170/79 H 166/103 H Blood Pressure [Left Brachial artery] O2 Saturation 100 99 100 04/21/18 04/21/1819 13:00 13:10 13:20 Temperature 36.8 C 36.8 C Heart Rate 95 94 88 Heart Rate [ Brachial] Respiratory 17 18 17 Rate Blood Pressure 169/69 H 148/59 H 122/94 H Blood Pressure [Left Brachial artery] O2 Saturation 95 100 99 04/21/18 04/21/18 04/21/18 13:45 14:02 14:36 Temperature 36.9 C 37.1 C Heart Rate Heart Rate [ 106 H 78 71 Brachial] Respiratory 20 20 18 Rate Blood Pressure Blood Pressure 153/72 H 144/59 H 112/55 L [Left Brachial artery] O2 Saturation 93 97 98 04/21/18 04/21/18 04/21/18 15:06 16:00 17:01 Temperature 37.0 C 37.2 C 36.7 C Heart Rate Heart Rate [ 65 82 86 Brachial] Respiratory 18 16 18 Rate Blood Pressure Blood Pressure 147/74 H 124/59 L 125/63 [Left Brachial artery] O2 Saturation 99 97 98 Oxygen O2 Source Room air I&O (Last 24 Hrs): Intake and Output Totals x24h 04/19/18 04/20/18 04/21/18 23:59 23:59 23:59 Intake Total 2463 3205 1020 Output Total 2275 3100 450 Balance 188 105 570 General: Alert HEENT: Mucous membr. moist/pink, Other (has ng tube in) Neuro: Non Focal Cardiovascular: Regular rate Respiratory: No respiratory distress Abdomen: Soft Extremities: No edema - Results Results: Laboratory Results WBC 7.3 x10^3/uL (4.8-10.8) 04/21/18 04:55 RBC 3.80 10^6/uL (4.20-5.40) L 04/21/18 04:55 Hgb 11.3 g/dL (12.0-16.0) L 04/21/18 04:55 Hct 33.5 % (37.0-47.0) L 04/21/18 04:55 MCV 88.0 fL (81.0-99.0) 04/21/18 04:55 MCH 29.6 pg (27.0-31.0) 04/21/18 04:55 MCHC 33.6 g/dL (32.0-36.0) 04/21/18 04:55 RDW 13.9 % (12.0-15.0) 04/21/18 04:55 Plt Count 207 10^3/uL (130-450) 04/21/18 04:55 MPV 9.6 fL (7.9-10.8) 04/21/18 04:55 Neut # (Auto) 5.0 10^3/uL (1.5-6.6) 04/21/18 04:55 Lymph # (Auto) 1.4 10^3/uL (1.5-3.5) L 04/21/18 04:55 [place] # (Auto) 0.8 10^3/uL (0.0-1.0) 04/21/18 04:55 Eos # (Auto) 0.0 10^3/uL (0.0-0.7) 04/21/18 04:55 Baso # (Auto) 0.1 10^3/uL (0.0-0.1) 04/21/18 04:55 Absolute Nucleated RBC 0.00 x10^3/uL 04/21/18 04:55 Nucleated RBC % 0.0 /100WBC 04/21/18 04:55 Sodium 141 mmol/L (135-145) 04/21/18 04:55 Potassium 3.6 mmol/L (3.5-5.0) 04/21/18 04:55 Chloride 107 mmol/L (101-111) 04/21/18 04:55 Carbon Dioxide 24 mmol/L (21-32) 04/21/18 04:55 Anion Gap 10.0 (6-13) 04/21/18 04:55 BUN 28 mg/dL (6-20) H 04/21/18 04:55 Creatinine 1.1 mg/dL (0.4-1.0) H 04/21/18 04:55 Estimated GFR (MDRD) 48 (>89) L 04/21/18 04:55 Glucose 130 mg/dL (70-100) H 04/21/18 04:55 Calcium 8.4 mg/dL (8.5-10.3) L 04/21/18 04:55 Total Bilirubin 0.7 mg/dL (0.2-1.0) 04/20/18 05:07 AST 45 IU/L (10-42) H 04/20/18 05:07 ALT 19 IU/L (10-60) 04/20/18 05:07 Alkaline Phosphatase 48 IU/L (42-121) 04/20/18 05:07 Troponin I < 0.04 ng/mL (<0.49) 04/18/18 00:33 Total Protein 6.2 g/dL (6.7-8.2) L 04/20/18 05:07 Albumin 3.6 g/dL (3.2-5.5) 04/20/18 05:07 Globulin 2.6 g/dL (2.1-4.2) 04/20/18 05:07 Albumin/Globulin Ratio 1.4 (1.0-2.2) 04/20/18 05:07 Lipase 53 U/L (22-51) H 04/18/18 00:33 Urine Color YELLOW 04/18/18 03:10 Urine Clarity CLEAR (CLEAR) 04/18/18 03:10 Urine pH 7.0 PH (5.0-7.5) 04/18/18 03:10 Ur Specific [place] 1.010 (1.002-1.030) 04/18/18 03:10 Urine Protein NEGATIVE mg/dL (NEGATIVE) 04/18/18 03:10 Urine Glucose (UA) NEGATIVE mg/dL (NEGATIVE) 04/18/18 03:10 Urine Ketones NEGATIVE mg/dL (NEGATIVE) 04/18/18 03:10 Urine Occult Blood TRACE-INTA (NEGATIVE) 04/18/18 03:10 Urine Nitrite NEGATIVE (NEGATIVE) 04/18/18 03:10 Urine Bilirubin NEGATIVE (NEGATIVE) 04/18/18 03:10 Urine Urobilinogen 0.2 (NORMAL) E.U./dL (NORMAL) 04/18/18 03:10 Ur Leukocyte Esterase NEGATIVE (NEGATIVE) 04/18/18 03:10 Ur Microscopic Review NOT INDICATED 04/18/18 03:10 Urine Culture Comments NOT INDICATED 04/18/18 03:10 - Procedures Procedures: Procedures ESOPHAGOGASTRODUODENOSCOPY [EGD] W/CLOSED BIOPSY (03/21/14) EXCISION OF LOWER ESOPHAGUS, ENDO, DIAGN (12/09/15) EXCISION OF STOMACH, ENDO, DIAGN (12/09/15)
[2018-04-21] MEDS: ACETAMINOPHEN 1,000 MG/100 ML 100 ML IV PRN (17:54)
[2018-04-21] MEDS: HALOPERIDOL 5 MG/ML VIAL IVP PRN (21:54)
[2018-04-22] MEDS: D5.45NS W/20 MEQ KCL 1,000 ML IV SCH ×3 (01:00→22:45)
[2018-04-22] MEDS: ACETAMINOPHEN 1,000 MG/100 ML 100 ML IV PRN (07:29)
[2018-04-22] MEDS: ACETAMINOPHEN 1,000 MG/100 ML 100 ML IV SCH ×4 (07:30→23:40)
--- NOTE | 2018-04-22 07:30 | PROVIDER PROGRESS NOTE ---
Subjective - General Admit Date: 04/18/18 Procedure Date: 04/21/18 Post Op Days: 1 Procedure Performed: exp lap, reduction of internal hernia, repair of internal hernia - Review of Systems Wound/Incisions: positive: Dressing dry and intact General: positive: No symptoms Gastrointestinal: positive: Abdominal pain (minimal per pt). negative: Flatus, Constipation Objective - Patient Data Reviewed Vital Signs: Yes Vital Signs: Vital Signs x48h Pulse Resp BP Pulse Ox 04/22/18 00:00 91 18 156/80 H 97 Intake & Output: Intake and Output Totals x24h 04/20/18 04/21/18 04/22/18 23:59 23:59 23:59 Intake Total 3205 1375 685 Output Total 3100 670 325 Balance 105 705 360 - Lab Results Lab Results: 04/21/18 04:55 04/21/18 04:55 - Current Medications Current Medications: Current Medications Generic Name Dose Route Start Last Admin Trade Name Freq PRN Reason Stop Dose Admin Clonidine HCl 1 patch 04/19/18 08:00 04/19/18 07:49 [id number] TOP 1 patch Q7D JARED Administration Enoxaparin Sodium 40 mg 04/20/18 10:00 04/21/18 08:19 Lovenox SUBQ Not Given DAILY JARED Haloperidol 5 mg 04/19/18 13:40 04/21/18 21:54 Haldol Inj IVP 5 mg Q6H PRN Administration Agitation Hydralazine HCl 20 mg 04/19/18 07:34 04/20/18 00:47 Apresoline Inj IVP 20 mg Q4HR PRN Administration Hypertensive Emergency SBP>180 Hydromorphone HCl 0.5 mg 04/21/18 12:42 04/21/18 19:35 Dilaudid Inj Syringe IVP 0.5 mg Q2H PRN Administration PAIN Potassium Chloride/Dextrose/Sod Cl 1,000 mls @ 100 mls/hr 04/21/18 12:43 04/22/18 01:00 D5.45ns W/20 Meq Kcl IV 100 mls/hr .Q10H JARED Administration Ondansetron HCl 4 mg 04/18/18 03:20 04/20/18 16:29 Zofran Inj IVP 4 mg Q6HR PRN Administration Nausea / Vomiting Pantoprazole Sodium 40 mg 04/18/18 07:00 04/21/18 08:30 Protonix IVP 40 mg QDAC JARED Administration Sodium Chloride 10 ml 04/18/18 03:20 04/21/18 21:55 Normal Saline Flush 0.9% IVP 10 ml PRN PRN Administration NEEDED PER PROVIDER ORDERS Sodium Chloride 10 ml 04/18/18 09:00 04/21/18 08:29 Normal Saline Flush 0.9% IVP 10 ml 0100,0900,1700 JARED Administration - Physical Exam Wound/Incisions: positive: Dressing dry and intact (minimal drainage into dressing) General Appearance: positive: No acute distress Eyes Bilateral: positive: No scleral icterus ENT: positive: Dry mucous membranes Neck: positive: No JVD Respiratory: positive: Chest non-tender, No respiratory distress, Breath sounds nml Cardiovascular: positive: Regular rate & rhythm, No murmur, No gallop Abdomen: positive: Tenderness (minimal), Abnml bowel sounds (hypoactive). negative: No distention (minimal distention) Extremities: negative: Pedal edema, Calf tenderness Comments/Other: NG out minimal postop ABX Reporting Has patient been on IV antibiotics over the past 48 hours?: No Impression/Plan - Problem List Problem List: PO Day 1 s/p expl lap, reduction of internal hernia, and repair of internal hernia; doing well. PLan: d/c NG tube; keep NPO today except sips/chips, OOB, check labs when available. OW per hospitalists for management of dementia/delerium. Minimize use of sedatives/narcotics.
[2018-04-22] MEDS: ENOXAPARIN 40 MG/0.4 ML SYRINGE SUBQ SCH (08:32)
[2018-04-22] MEDS: HYDROmorphone 0.5 MG/0.5 ML SYRINGE IVP PRN ×3 (08:32→16:21)
--- NOTE | 2018-04-22 13:38 | PROVIDER PROGRESS NOTE ---
Assessment/Plan - Problem List (1) Small bowel obstruction Assessment/Plan: She is POD #1 of her abd surgery for bowel obstruction. Surgery OKd removal of the ng tube today. Will advance diet as tolerated, starting with clear liquids. (2) Acute renal insufficiency Assessment/Plan: Improved since iv fluids hydrating every day Follow BMP daily (3) Delirium due to medical condition with behavioral disturbance Assessment/Plan: Today she is lethargic, possibly from delayed awakening from general anesthesia yesterday. She is "hoarding" some papers in a plastic bag on top of her abdomen and under the bed sheets today. Will plan to have a Tele-Psych consult when the patient is medically stable, possibly in 1-2 more days. (4) HTN (hypertension) Qualifiers: Hypertension type: essential hypertension Qualified Code(s): I10 - Essential (primary) hypertension Assessment/Plan: Controlled on current parenteral meds - Current Meds Current Meds: Current Medications Generic Name Dose Route Start Last Admin Trade Name Freq PRN Reason Stop Dose Admin Clonidine HCl 1 patch 04/19/18 08:00 04/19/18 07:49 [id number] TOP 1 patch Q7D JARED Administration Enoxaparin Sodium 40 mg 04/20/18 10:00 04/22/18 08:32 Lovenox SUBQ 40 mg DAILY JARED Administration Haloperidol 5 mg 04/19/18 13:40 04/21/18 21:54 Haldol Inj IVP 5 mg Q6H PRN Administration Agitation Hydralazine HCl 20 mg 04/19/18 07:34 04/20/18 00:47 Apresoline Inj IVP 20 mg Q4HR PRN Administration Hypertensive Emergency SBP>180 Hydromorphone HCl 0.5 mg 04/21/18 12:42 04/22/18 11:49 Dilaudid Inj Syringe IVP 0.5 mg Q2H PRN Administration PAIN Potassium Chloride/Dextrose/Sod Cl 1,000 mls @ 100 mls/hr 04/21/18 12:43 04/22/18 12:36 D5.45ns W/20 Meq Kcl IV 100 mls/hr .Q10H JARED Administration Acetaminophen 100 mls @ 400 mls/hr 04/22/18 08:00 04/22/18 13:28 Ofirmev IV 400 mls/hr Q6HR JARED Administration Ondansetron HCl 4 mg 04/18/18 03:20 04/20/18 16:29 Zofran Inj IVP 4 mg Q6HR PRN Administration Nausea / Vomiting Pantoprazole Sodium 40 mg 04/18/18 07:00 04/21/18 08:30 Protonix IVP 40 mg QDAC JARED Administration Sodium Chloride 10 ml 04/18/18 03:20 04/21/18 21:55 Normal Saline Flush 0.9% IVP 10 ml PRN PRN Administration NEEDED PER PROVIDER ORDERS Sodium Chloride 10 ml 04/18/18 09:00 04/21/18 08:29 Normal Saline Flush 0.9% IVP 10 ml 0100,0900,1700 JARED Administration - Lab Result Fish Bone Diagrams: 04/21/18 04:55 04/21/18 04:55 - Additional Planning My Orders: My Active Orders 04/22/18 05:00 BMP - BASIC METABOLIC PANEL [CHEM] DAILYLAB CBC - COMP BLD CT W/AUTO DIFF [HEME] DAILYLAB 04/22/18 Lunch Clear Liquid Diet [DIET] 04/23/18 05:00 BMP - BASIC METABOLIC PANEL [CHEM] DAILYLAB CBC - COMP BLD CT W/AUTO DIFF [HEME] DAILYLAB Subjective - Subjective Patient Reports: Resting Comfortably Objective Vital Signs: Vital Signs - 24 hr 04/21/18 04/21/18 04/21/18 13:45 14:02 14:36 Temperature 36.9 C 37.1 C Heart Rate [ 106 H 78 71 Brachial] Respiratory 20 20 18 Rate Blood Pressure 153/72 H 144/59 H 112/55 L [Left Brachial artery] Blood Pressure [Right Brachial artery] O2 Saturation 93 97 98 04/21/18 04/21/18 04/21/18 15:06 16:00 17:01 Temperature 37.0 C 37.2 C 36.7 C Heart Rate [ 65 82 86 Brachial] Respiratory 18 16 18 Rate Blood Pressure 147/74 H 124/59 L 125/63 [Left Brachial artery] Blood Pressure [Right Brachial artery] O2 Saturation 99 97 98 04/21/18 04/22/18 04/22/18 20:20 00:00 08:00 Temperature 36.4 C L 36.7 C Heart Rate [ 78 91 82 Brachial] Respiratory 18 18 17 Rate Blood Pressure 143/54 H 156/80 H [Left Brachial artery] Blood Pressure 154/44 H [Right Brachial artery] O2 Saturation 99 97 96 Oxygen O2 Source Room air I&O (Last 24 Hrs): Intake and Output Totals x24h 04/20/18 04/21/18 04/22/18 23:59 23:59 23:59 Intake Total 3205 1375 1815 Output Total 3100 670 550 Balance 263 397 1185 General: Other (Lethargic) HEENT: Atraumatic, Mucous membr. moist/pink Neck: Supple, No JVD Neuro: Non Focal Cardiovascular: Regular rate, No murmurs Respiratory: No respiratory distress Abdomen: Soft, Other (No bowel sounds) Extremities: No edema - Results Results: Laboratory Results WBC 7.3 x10^3/uL (4.8-10.8) 04/21/18 04:55 RBC 3.80 10^6/uL (4.20-5.40) L 04/21/18 04:55 Hgb 11.3 g/dL (12.0-16.0) L 04/21/18 04:55 Hct 33.5 % (37.0-47.0) L 04/21/18 04:55 MCV 88.0 fL (81.0-99.0) 04/21/18 04:55 MCH 29.6 pg (27.0-31.0) 04/21/18 04:55 MCHC 33.6 g/dL (32.0-36.0) 04/21/18 04:55 RDW 13.9 % (12.0-15.0) 04/21/18 04:55 Plt Count 207 10^3/uL (130-450) 04/21/18 04:55 MPV 9.6 fL (7.9-10.8) 04/21/18 04:55 Neut # (Auto) 5.0 10^3/uL (1.5-6.6) 04/21/18 04:55 Lymph # (Auto) 1.4 10^3/uL (1.5-3.5) L 04/21/18 04:55 [place] # (Auto) 0.8 10^3/uL (0.0-1.0) 04/21/18 04:55 Eos # (Auto) 0.0 10^3/uL (0.0-0.7) 04/21/18 04:55 Baso # (Auto) 0.1 10^3/uL (0.0-0.1) 04/21/18 04:55 Absolute Nucleated RBC 0.00 x10^3/uL 04/21/18 04:55 Nucleated RBC % 0.0 /100WBC 04/21/18 04:55 Sodium 141 mmol/L (135-145) 04/21/18 04:55 Potassium 3.6 mmol/L (3.5-5.0) 04/21/18 04:55 Chloride 107 mmol/L (101-111) 04/21/18 04:55 Carbon Dioxide 24 mmol/L (21-32) 04/21/18 04:55 Anion Gap 10.0 (6-13) 04/21/18 04:55 BUN 28 mg/dL (6-20) H 04/21/18 04:55 Creatinine 1.1 mg/dL (0.4-1.0) H 04/21/18 04:55 Estimated GFR (MDRD) 48 (>89) L 04/21/18 04:55 Glucose 130 mg/dL (70-100) H 04/21/18 04:55 Calcium 8.4 mg/dL (8.5-10.3) L 04/21/18 04:55 Total Bilirubin 0.7 mg/dL (0.2-1.0) 04/20/18 05:07 AST 45 IU/L (10-42) H 04/20/18 05:07 ALT 19 IU/L (10-60) 04/20/18 05:07 Alkaline Phosphatase 48 IU/L (42-121) 04/20/18 05:07 Troponin I < 0.04 ng/mL (<0.49) 04/18/18 00:33 Total Protein 6.2 g/dL (6.7-8.2) L 04/20/18 05:07 Albumin 3.6 g/dL (3.2-5.5) 04/20/18 05:07 Globulin 2.6 g/dL (2.1-4.2) 04/20/18 05:07 Albumin/Globulin Ratio 1.4 (1.0-2.2) 04/20/18 05:07 Lipase 53 U/L (22-51) H 04/18/18 00:33 Urine Color YELLOW 04/18/18 03:10 Urine Clarity CLEAR (CLEAR) 04/18/18 03:10 Urine pH 7.0 PH (5.0-7.5) 04/18/18 03:10 Ur Specific [place] 1.010 (1.002-1.030) 04/18/18 03:10 Urine Protein NEGATIVE mg/dL (NEGATIVE) 04/18/18 03:10 Urine Glucose (UA) NEGATIVE mg/dL (NEGATIVE) 04/18/18 03:10 Urine Ketones NEGATIVE mg/dL (NEGATIVE) 04/18/18 03:10 Urine Occult Blood TRACE-INTA (NEGATIVE) 04/18/18 03:10 Urine Nitrite NEGATIVE (NEGATIVE) 04/18/18 03:10 Urine Bilirubin NEGATIVE (NEGATIVE) 04/18/18 03:10 Urine Urobilinogen 0.2 (NORMAL) E.U./dL (NORMAL) 04/18/18 03:10 Ur Leukocyte Esterase NEGATIVE (NEGATIVE) 04/18/18 03:10 Ur Microscopic Review NOT INDICATED 04/18/18 03:10 Urine Culture Comments NOT INDICATED 04/18/18 03:10 - Procedures Procedures: Procedures ESOPHAGOGASTRODUODENOSCOPY [EGD] W/CLOSED BIOPSY (03/21/14) EXCISION OF LOWER ESOPHAGUS, ENDO, DIAGN (12/09/15) EXCISION OF STOMACH, ENDO, DIAGN (12/09/15)
[2018-04-22 14:05] LABS: BASOPHILS % (AUTO) 0.4 %; EOSINOPHILS % (AUTO) 0.4 %; HGB - HEMOGLOBIN 10.2 g/dL (12.0-16.0); LYMPHOCYTES # (AUTO) 0.8 10^3/uL (1.5-3.5); LYMPHOCYTES % (AUTO) 22.5 %; MEAN CORPUSCULAR HEMOGLOBIN 29.7 pg (27.0-31.0); MEAN CORPUSCULAR HGB CONC 33.9 g/dL (32.0-36.0); MEAN CORPUSCULAR VOLUME 87.6 fL (81.0-99.0); MEAN PLATELET VOLUME 9.4 fL (7.9-10.8); MONOCYTES # (AUTO) 0.7 10^3/uL (0.0-1.0); MONOCYTES % (AUTO) 21.7 %; NEUTROPHILS # (AUTO) 1.9 10^3/uL (1.5-6.6); PLT - PLATELET COUNT 170 10^3/uL (130-450); RED BLOOD COUNT 3.43 10^6/uL (4.20-5.40); RED CELL DISTRIBUTION WIDTH 13.4 % (12.0-15.0); WHITE BLOOD COUNT 3.4 x10^3/uL (4.8-10.8)
[2018-04-22 14:23] LABS: CALCIUM 7.6 mg/dL (8.5-10.3); CREATININE 0.8 mg/dL (0.4-1.0)
[2018-04-22] MEDS: SODIUM CHLORIDE FLUSH 0.9% 10 ML SYRINGE IVP SCH (16:20)
[2018-04-22] MEDS ORDERED: PHENOL THROAT SPRAY 177 ML MM PRN (21:19)
[2018-04-22] MEDS ORDERED: BENZOCAINE/MENTHOL LOZENGE MM PRN (21:19)
[2018-04-23] MEDS: SODIUM CHLORIDE FLUSH 0.9% 10 ML SYRINGE IVP SCH ×4 (01:01→23:34)
[2018-04-23 05:44] LABS: CALCIUM 7.8 mg/dL (8.5-10.3); CREATININE 0.7 mg/dL (0.4-1.0)
[2018-04-23] MEDS: ACETAMINOPHEN 1,000 MG/100 ML 100 ML IV SCH ×2 (06:05→11:58)
[2018-04-23 06:06] LABS: BASOPHILS % (AUTO) 0.5 %; EOSINOPHILS # (AUTO) 0.2 10^3/uL (0.0-0.7); EOSINOPHILS % (AUTO) 3.8 %; HGB - HEMOGLOBIN 10.7 g/dL (12.0-16.0); LYMPHOCYTES # (AUTO) 1.1 10^3/uL (1.5-3.5); LYMPHOCYTES % (AUTO) 22.6 %; MEAN CORPUSCULAR HEMOGLOBIN 29.4 pg (27.0-31.0); MEAN CORPUSCULAR HGB CONC 32.3 g/dL (32.0-36.0); MEAN PLATELET VOLUME 10.5 fL (7.9-10.8); MONOCYTES # (AUTO) 0.8 10^3/uL (0.0-1.0); MONOCYTES % (AUTO) 16.6 %; NEUTROPHILS # (AUTO) 2.7 10^3/uL (1.5-6.6); NEUTROPHILS % (AUTO) 56.5 %; PLT - PLATELET COUNT 188 10^3/uL (130-450); RED BLOOD COUNT 3.65 10^6/uL (4.20-5.40); RED CELL DISTRIBUTION WIDTH 14.2 % (12.0-15.0); WHITE BLOOD COUNT 4.8 x10^3/uL (4.8-10.8)
[2018-04-23] MEDS: PANTOPRAZOLE 40 MG VIAL IVP SCH (06:23)
[2018-04-23] MEDS: ENOXAPARIN 40 MG/0.4 ML SYRINGE SUBQ SCH (09:28)
[2018-04-23] MEDS: D5.45NS W/20 MEQ KCL 1,000 ML IV SCH ×2 (10:46→12:05)
[2018-04-23] MEDS ORDERED: ACETAMINOPHEN 325 MG TABLET PO PRN (11:59)
--- NOTE | 2018-04-23 12:03 | PROVIDER PROGRESS NOTE ---
Assessment/Plan - Problem List (1) Small bowel obstruction Assessment/Plan: She has had 2 BMs and is tolerating the clear liquid diet. Will advance diet with each subsequent meal. She may be on solid food by tomorrow. Will change iv Pepcid and Tylenol to po. Will resume her po BP meds slowly. Continue empiric iv antibiotics. (2) Delirium due to medical condition with behavioral disturbance Assessment/Plan: She is more cooperative today. CT of head done this admission showed no sign of CVA or hemorrhage. I expect that she will be medically clear tomorrow, if she needs a Tele-psych eval, with wet roaster using the tablet or the speaker phone (discussed with Social Work). Social Work impression today was that she is no longer suicidal or homicidal. Her 1:1 sitter order will be stopped and she may not need a Psych eval after all. Will resume her po Desyrel starting tomorrow evening. She was on this for depression. (3) HTN (hypertension) Qualifiers: Hypertension type: essential hypertension Qualified Code(s): I10 - Essential (primary) hypertension Assessment/Plan: BP controlled on Clonidine patch and prn iv Hydralazine doses. Will transition the iv meds, resume her home Metoprolol dose tomorrow and continue the Clonidine patch for ease of administration. She may not need use of the Losartan and Nifedipine ER. - Current Meds Current Meds: Current Medications Generic Name Dose Route Start Last Admin Trade Name Freq PRN Reason Stop Dose Admin Clonidine HCl 1 patch 04/19/18 08:00 04/19/18 07:49 [id number] TOP 1 patch Q7D JARED Administration Enoxaparin Sodium 40 mg 04/20/18 10:00 04/23/18 09:28 Lovenox SUBQ 40 mg DAILY JARED Administration Haloperidol 5 mg 04/19/18 13:40 04/21/18 21:54 Haldol Inj IVP 5 mg Q6H PRN Administration Agitation Hydralazine HCl 20 mg 04/19/18 07:34 04/20/18 00:47 Apresoline Inj IVP 20 mg Q4HR PRN Administration Hypertensive Emergency SBP>180 Hydromorphone HCl 0.5 mg 04/21/18 12:42 04/22/18 16:21 Dilaudid Inj Syringe IVP 0.5 mg Q2H PRN Administration PAIN Ondansetron HCl 4 mg 04/18/18 03:20 04/20/18 16:29 Zofran Inj IVP 4 mg Q6HR PRN Administration Nausea / Vomiting Sodium Chloride 10 ml 04/18/18 03:20 04/21/18 21:55 Normal Saline Flush 0.9% IVP 10 ml PRN PRN Administration NEEDED PER PROVIDER ORDERS Sodium Chloride 10 ml 04/18/18 09:00 04/23/18 09:28 Normal Saline Flush 0.9% IVP Not Given 0100,0900,1700 JARED - Lab Result Fish Bone Diagrams: 04/23/18 05:11 04/23/18 05:11 - Additional Planning My Orders: My Active Orders 04/22/18 21:19 Benzocaine/Menthol [Cepacol] 1 lozenge MM Q2HR PRN Phenol [Chloraseptic] 2 sprays MM Q2HR PRN 04/23/18 11:59 Acetaminophen [Tylenol] 650 mg PO Q4HR PRN 04/23/18 12:00 D5.45ns W/20 Meq KCl 1,000 ml IV 50 mls/hr 04/23/18 21:00 Famotidine [Pepcid] 20 mg PO BID 04/23/18 Dinner Dysphagia Puree Diet [DIET] 04/23/18 Lunch Full Liquid Diet [DIET] 04/24/18 Breakfast DIET [Soft (Low Fiber) Diet] [DIET] Subjective - Subjective Patient Reports: Resting Comfortably Nursing Reports: Other (Still gets some post-op pain, is more cooperative, yesterday she was lucid enough to tell her where she "hid the handgun".) Objective Vital Signs: Vital Signs - 24 hr 04/22/18 04/23/18 04/23/18 16:01 02:25 07:54 Temperature 37.1 C 36.8 C 36.6 C Heart Rate [ 80 74 75 Brachial] Respiratory 16 16 18 Rate Blood Pressure 151/55 H 138/61 H [Left Brachial artery] Blood Pressure 152/94 H [Right Brachial artery] O2 Saturation 97 96 97 Oxygen O2 Source Room air I&O (Last 24 Hrs): Intake and Output Totals x24h 04/21/18 04/22/18 04/23/18 23:59 23:59 23:59 Intake Total 1375 3090 1440 Output Total 670 1150 1700 Balance 705 1940 -260 General: Alert HEENT: Mucous membr. moist/pink Neck: Supple Neuro: Non Focal Cardiovascular: Regular rate Respiratory: No respiratory distress Abdomen: Soft Extremities: No edema - Results Results: Laboratory Results WBC 4.8 x10^3/uL (4.8-10.8) 04/23/18 05:11 RBC 3.65 10^6/uL (4.20-5.40) L 04/23/18 05:11 Hgb 10.7 g/dL (12.0-16.0) L 04/23/18 05:11 Hct 33.2 % (37.0-47.0) L 04/23/18 05:11 MCV 91.0 fL (81.0-99.0) 04/23/18 05:11 MCH 29.4 pg (27.0-31.0) 04/23/18 05:11 MCHC 32.3 g/dL (32.0-36.0) 04/23/18 05:11 RDW 14.2 % (12.0-15.0) 04/23/18 05:11 Plt Count 188 10^3/uL (130-450) 04/23/18 05:11 MPV 10.5 fL (7.9-10.8) 04/23/18 05:11 Neut # (Auto) 2.7 10^3/uL (1.5-6.6) 04/23/18 05:11 Lymph # (Auto) 1.1 10^3/uL (1.5-3.5) L 04/23/18 05:11 [place] # (Auto) 0.8 10^3/uL (0.0-1.0) 04/23/18 05:11 Eos # (Auto) 0.2 10^3/uL (0.0-0.7) 04/23/18 05:11 Baso # (Auto) 0.0 10^3/uL (0.0-0.1) 04/23/18 05:11 Absolute Nucleated RBC 0.00 x10^3/uL 04/23/18 05:11 Nucleated RBC % 0.0 /100WBC 04/23/18 05:11 Sodium 140 mmol/L (135-145) 04/23/18 05:11 Potassium 4.1 mmol/L (3.5-5.0) 04/23/18 05:11 Chloride 112 mmol/L (101-111) H 04/23/18 05:11 Carbon Dioxide 23 mmol/L (21-32) 04/23/18 05:11 Anion Gap 5.0 (6-13) L 04/23/18 05:11 BUN 16 mg/dL (6-20) 04/23/18 05:11 Creatinine 0.7 mg/dL (0.4-1.0) 04/23/18 05:11 Estimated GFR (MDRD) 81 (>89) L 04/23/18 05:11 Glucose 109 mg/dL (70-100) H 04/23/18 05:11 Calcium 7.8 mg/dL (8.5-10.3) L 04/23/18 05:11 Total Bilirubin 0.7 mg/dL (0.2-1.0) 04/20/18 05:07 AST 45 IU/L (10-42) H 04/20/18 05:07 ALT 19 IU/L (10-60) 04/20/18 05:07 Alkaline Phosphatase 48 IU/L (42-121) 04/20/18 05:07 Troponin I < 0.04 ng/mL (<0.49) 04/18/18 00:33 Total Protein 6.2 g/dL (6.7-8.2) L 04/20/18 05:07 Albumin 3.6 g/dL (3.2-5.5) 04/20/18 05:07 Globulin 2.6 g/dL (2.1-4.2) 04/20/18 05:07 Albumin/Globulin Ratio 1.4 (1.0-2.2) 04/20/18 05:07 Lipase 53 U/L (22-51) H 04/18/18 00:33 Urine Color YELLOW 04/18/18 03:10 Urine Clarity CLEAR (CLEAR) 04/18/18 03:10 Urine pH 7.0 PH (5.0-7.5) 04/18/18 03:10 Ur Specific [place] 1.010 (1.002-1.030) 04/18/18 03:10 Urine Protein NEGATIVE mg/dL (NEGATIVE) 04/18/18 03:10 Urine Glucose (UA) NEGATIVE mg/dL (NEGATIVE) 04/18/18 03:10 Urine Ketones NEGATIVE mg/dL (NEGATIVE) 04/18/18 03:10 Urine Occult Blood TRACE-INTA (NEGATIVE) 04/18/18 03:10 Urine Nitrite NEGATIVE (NEGATIVE) 04/18/18 03:10 Urine Bilirubin NEGATIVE (NEGATIVE) 04/18/18 03:10 Urine Urobilinogen 0.2 (NORMAL) E.U./dL (NORMAL) 04/18/18 03:10 Ur Leukocyte Esterase NEGATIVE (NEGATIVE) 04/18/18 03:10 Ur Microscopic Review NOT INDICATED 04/18/18 03:10 Urine Culture Comments NOT INDICATED 04/18/18 03:10 - Procedures Procedures: Procedures ESOPHAGOGASTRODUODENOSCOPY [EGD] W/CLOSED BIOPSY (03/21/14) EXCISION OF LOWER ESOPHAGUS, ENDO, DIAGN (12/09/15) EXCISION OF STOMACH, ENDO, DIAGN (12/09/15)
[2018-04-23] MEDS: HYDROmorphone 0.5 MG/0.5 ML SYRINGE IVP PRN ×2 (12:29→21:29)
--- NOTE | 2018-04-23 15:20 | PROVIDER PROGRESS NOTE ---
Subjective - Prog Note Date Prog Note Date: 04/23/18 Prog Note Time: 15:18 - Subjective Pt reports feeling: Improved (Pt reports minimal pain. She is ambulating and tolerating liquids with minimal nausea. No BM/flatus.) Objective - Vital Signs/Intake & Output Vital Signs: Vital Signs x48h Temp Pulse Resp BP Pulse Ox 04/23/18 07:54 36.6 C 75 18 138/61 H 97 Intake & Output: Intake & Output 04/20/18 04/21/18 04/22/18 04/23/18 23:59 23:59 23:59 23:59 Intake Total 3205 1375 3090 2640.000 Output Total 3100 670 1150 1700 Balance 515 808 9785 940.000 - Objective General Appearance: positive: No acute distress Eyes Bilateral: positive: Normal inspection ENT: positive: ENT inspection nml Neck: positive: Nml inspection Respiratory: positive: Chest non-tender Abdomen: positive: Non-tender Back: positive: Nml inspection Skin: positive: Color nml Extremities: positive: Non-tender Neurologic/Psychiatric: positive: Oriented x3 - Lab Results Fish Bones: 04/23/18 05:11 04/23/18 05:11 Other Labs: Lab Results x24hrs 04/23/18 04/23/18 Range/Units 05:11 05:11 WBC 4.8 (4.8-10.8) x10^3/uL RBC 3.65 L (4.20-5.40) 10^6/uL Hgb 10.7 L (12.0-16.0) g/dL Hct 33.2 L (37.0-47.0) % MCV 91.0 (81.0-99.0) fL MCH 29.4 (27.0-31.0) pg MCHC 32.3 (32.0-36.0) g/dL RDW 14.2 (12.0-15.0) % Plt Count 188 (130-450) 10^3/uL MPV 10.5 (7.9-10.8) fL Neut # (Auto) 2.7 (1.5-6.6) 10^3/uL Lymph # (Auto) 1.1 L (1.5-3.5) 10^3/uL [place] # (Auto) 0.8 (0.0-1.0) 10^3/uL Eos # (Auto) 0.2 (0.0-0.7) 10^3/uL Baso # (Auto) 0.0 (0.0-0.1) 10^3/uL Absolute Nucleated RBC 0.00 x10^3/uL Nucleated RBC % 0.0 /100WBC Sodium 140 (135-145) mmol/L Potassium 4.1 (3.5-5.0) mmol/L Chloride 112 H (101-111) mmol/L Carbon Dioxide 23 (21-32) mmol/L Anion Gap 5.0 L (6-13) BUN 16 (6-20) mg/dL Creatinine 0.7 (0.4-1.0) mg/dL Estimated GFR (MDRD) 81 L (>89) Glucose 109 H (70-100) mg/dL Calcium 7.8 L (8.5-10.3) mg/dL Assessment/Plan - Problem List (1) Small bowel obstruction Impression: Pt continues to improve POD 2. Continue expectant management.
[2018-04-23] MEDS: FAMOTIDINE 20 MG TABLET PO SCH (21:29)
[2018-04-23] MEDS: ONDANSETRON 4 MG/2 ML VIAL IVP PRN (21:42)
[2018-04-24] MEDS: SODIUM CHLORIDE FLUSH 0.9% 10 ML SYRINGE IVP SCH ×3 (00:33→09:45)
[2018-04-24] MEDS: HYDROmorphone 0.5 MG/0.5 ML SYRINGE IVP PRN ×2 (00:33→04:59)
[2018-04-24] MEDS: D5.45NS W/20 MEQ KCL 1,000 ML IV SCH (05:00)
[2018-04-24] MEDS ORDERED: ASPIRIN CHEW 81 MG TABLET PO SCH (09:00)
[2018-04-24] MEDS ORDERED: METOPROLOL SUCCINATE 25 MG TABLET PO SCH (09:00)
--- NOTE | 2018-04-24 09:00 | PROVIDER PROGRESS NOTE ---
Subjective - Prog Note Date Prog Note Date: 04/24/18 Prog Note Time: 08:58 - Subjective Pt reports feeling: Improved (Pt has progressed to solid food. Minimal pain, no flatus/BM. Ambulating.) Objective - Vital Signs/Intake & Output Intake & Output: Intake & Output 04/21/18 04/22/18 04/23/18 04/24/18 23:59 23:59 23:59 23:59 Intake Total 1375 3090 3090.000 845.833 Output Total 670 1150 2800 275 Balance 705 1940 290.000 570.833 - Objective General Appearance: positive: No acute distress Eyes Bilateral: positive: Normal inspection ENT: positive: ENT inspection nml Neck: positive: Nml inspection Respiratory: positive: Chest non-tender Abdomen: positive: Non-tender Back: positive: Nml inspection Skin: positive: Color nml Extremities: positive: Non-tender Neurologic/Psychiatric: positive: Oriented x3 - Lab Results Fish Bones: 04/23/18 05:11 04/23/18 05:11 Assessment/Plan - Problem List (1) Small bowel obstruction Impression: Pt continues to recover. Incisions are clean and dry. Abdomen WNL. Continue expectant management.
[2018-04-24] MEDS: ONDANSETRON 4 MG/2 ML VIAL IVP PRN (09:39)
[2018-04-24] MEDS: FAMOTIDINE 20 MG TABLET PO SCH (09:39)
[2018-04-24 09:43] VITALS: BP 151/60
[2018-04-24] MEDS: ENOXAPARIN 40 MG/0.4 ML SYRINGE SUBQ SCH (09:45)
--- NOTE | 2018-04-24 11:59 | Discharge Plan ---
Discharge Plan Disposition: 01 Home, Self Care Condition: Stable Prescriptions: cloNIDine 0.2 MG PATCH [[id number]] 1 patch TOP Q7D #4 patch Diet: Regular Activity Restrictions: Activity as Tolerated Shower Restrictions: No Driving Restrictions: Yes Instruction Topics: Obstruction Sm Bowel Additional Instructions or Follow Up instructions: You were admitted for a bowel obstruction that needed surgery. Some of your medications were changed, PLEASE FOLLOW THE NEW LIST OF MEDICATIONS. You should see your Primary Care provider in 5-7 days for follow up. If you have new or worsening symptoms, come to the ER. No Smoking: If you smoke, Please STOP! Call for help.
[2018-04-24] MEDS ORDERED: traZODone 50 MG TABLET PO SCH (21:00)
--- NOTE | 2018-04-28 19:11 | DISCHARGE SUMMARY ---
Physician: Marlena Dumont MD DATE OF ADMISSION: 04/18/2018 DATE OF DISCHARGE: 04/24/2018 HISTORY OF PRESENT ILLNESS: This is a 78-year-old female who speaks no Kyrgyz. The entire hospital stay was conducted through interpreters. The patient has a history of hypertension and possibly dementia (the reported that for about 6 weeks before this admission, the patient was more confused, paranoid, accusing him of various things). The patient had not been seen or evaluated for this new onset of confusion. The patient presented with complaints of abdominal pain, nausea and vomiting. In the emergency room, she was found to have gastric and small-bowel obstruction. A CT scan of the abdomen and pelvis showed mild to moderate dilatation of the small bowel in the lower abdomen and severely dilated stomach. There was also esophageal dilatation. There was a stable solid right middle lobe nodule in the long. HOSPITAL COURSE AND DISCHARGE DIAGNOSES 1. Small-bowel obstruction. The patient had treatment started with conservative management with bowel rest, NG tube for decompression, antiemetics and IV fluids. She improved and the NG tube was able to be removed. The following day, she worsened, however, with significant distention and there was an NG tube replacement. During this time, she had significant confusion and delirium, was agitated, noncompliant with treatment, pulled out her IV and NG tube several times. She had multiple sequential abdominal x-rays done with oral contrast to evaluate for presence of contrast in the colon. She never had passage of gas, bowel movements or adequate contrast seen in the colon. She was taken to the operating room on 04/21/2018 for surgical management of her bowel obstruction. Dr. 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 He was able to pull out the incarcerated portion of intestine and sew the defect in the mesenteric omentum. There was no necrosis of the portion of bowel that he released or any signs of peritonitis or abscess. The patient then had rapid improvement in her status, was able to take clear liquids and advance to a solid diet. She only required perioperative antibiotics and minimal pain medications after surgery. 2. Delirium due to medical condition with behavior disturbance. The patient was confused, agitated, noncompliant, pulling out IV and NG tube. She required mild sedation. After the surgery, she had significant improvement in her sensorium, she was oriented x3 and very thankful for staff as well as apologetic regarding her behavior. She did have perseveration of speech however; thus, it is not clear if she does have underlying dementia. 3. Hypertension. During her many days with n.p.o. status, her prehospitalization blood pressure medications were on hold and she was getting a Clonidine patch as well as IV hydralazine for control of blood pressure. When her diet was advanced, she was only restarted on one of her p.o. medications and the Clonidine patch was continued. Therefore, she was advised to follow the new list of medications at discharge, which could potentially be easier for her and the to manage. LABORATORY AND IMAGING: Reviewed and summarized above. ALLERGIES: NONE. MEDICATIONS AT DISCHARGE 1. Sublingual nitroglycerin p.r.n. 2. Tylenol p.r.n. 3. Baby aspirin daily. 4. Lipitor 10 mg every night. 5. Clonazepam 0.5 mg b.i.d. p.r.n. 6. Gabapentin 100 mg b.i.d. 7. Toprol-XL 25 mg daily. 8. Multivitamin daily. 9. Omeprazole 20 mg every night. 10. Trazodone 50 mg every night. 11. Clonidine patch 0.2 mg topically weekly. 12. [place] 5/325 mg, 20 tablets were prescribed. 13. Mirtazapine 15 mg every night. 14. Zofran p.r.n. 15. Zantac 150 mg b.i.d. *Her pre-hospital medications of HCTZ and Amlodipine were not required for blood pressure control. CONDITION AT DISCHARGE: Stable. PHYSICAL EXAMINATION VITAL SIGNS: Blood pressure 151/60, heart rate 78 in sinus rhythm, room air saturation 97%, afebrile. HEENT: Unremarkable. NECK: Without JVD or carotid bruits. CHEST: Clear. HEART: Sounds normal. ABDOMEN: Soft with positive bowel sounds. No organomegaly. EXTREMITIES: No edema. NEUROLOGIC: Grossly intact, but possibly with poor memory. FOLLOWUP: She was advised to see her PCP within 1 week for hospital followup and also possible BP medication restart. CODE STATUS: FULL CODE. Time required to complete this entire discharge, chart review, prescription orders, dictation: 30 minutes. cc: Juan Shields MD TD: 04/28/2018 17:49 MTDD
== END 2018-04-24 12:30 | disposition home or self-care (01) | DRG 357 ==
LOC: ED 23:57 → MS2 04-18 03:20
PROVIDERS: ADMIT Specialist; ATTEND Internal Medicine
PROC: 0DQV0ZZ Repair Mesentery, Open Approach (ICD-10-PCS; principal; 2018-04-21 10:30)
DX: K56.609 Unspecified intestinal obstruction, unspecified as to partial versus complete obstruction (principal); K59.00 Constipation, unspecified; K46.0 Unspecified abdominal hernia with obstruction, without gangrene; E78.00 Pure hypercholesterolemia, unspecified; E87.0 Hyperosmolality and hypernatremia; I10 Essential (primary) hypertension; K21.9 Gastro-esophageal reflux disease without esophagitis; M19.90 Unspecified osteoarthritis, unspecified site; Z96.659 Presence of unspecified artificial knee joint; Z90.49 Acquired absence of other specified parts of digestive tract; Z90.710 Acquired absence of both cervix and uterus; K46.9 Unspecified abdominal hernia without obstruction or gangrene; R41.0 Disorientation, unspecified; E78.5 Hyperlipidemia, unspecified; J45.909 Unspecified asthma, uncomplicated; K83.8 Other specified diseases of biliary tract; Z66 Do not resuscitate; Z90.79 Acquired absence of other genital organ(s); Z90.722 Acquired absence of ovaries, bilateral; N28.9 Disorder of kidney and ureter, unspecified
CPT/HCPCS: 36415; 70450; 71045; 74018; 74019; 74177; 80048; 80053; 81001; 81003; 83690; 84484; 85025; 87086; 93005; 96361; 96374; 96376; 99285

== ENCOUNTER 2018-05-12 12:59 | Outpatient (CLI) | payer MEDICARE ==
[2018-05-12 13:20] LABS: BASOPHILS # (AUTO) 0.1 10^3/uL (0.0-0.1); BASOPHILS % (AUTO) 1.2 %; EOSINOPHILS % (AUTO) 0.8 %; HGB - HEMOGLOBIN 11.1 g/dL (12.0-16.0); LYMPHOCYTES # (AUTO) 1.2 10^3/uL (1.5-3.5); MEAN CORPUSCULAR HEMOGLOBIN 29.2 pg (27.0-31.0); MEAN CORPUSCULAR HGB CONC 33.2 g/dL (32.0-36.0); MEAN CORPUSCULAR VOLUME 87.9 fL (81.0-99.0); MEAN PLATELET VOLUME 8.7 fL (7.9-10.8); MONOCYTES # (AUTO) 0.6 10^3/uL (0.0-1.0); MONOCYTES % (AUTO) 11.4 %; NEUTROPHILS # (AUTO) 3.3 10^3/uL (1.5-6.6); NEUTROPHILS % (AUTO) 63.6 %; PLT - PLATELET COUNT 225 10^3/uL (130-450); RED CELL DISTRIBUTION WIDTH 14.8 % (12.0-15.0); WHITE BLOOD COUNT 5.2 x10^3/uL (4.8-10.8)
[2018-05-12 13:50] LABS: ALBUMIN 4.2 g/dL (3.2-5.5); ALBUMIN/GLOBULIN RATIO 1.4 (1.0-2.2); BILIRUBIN,TOTAL 0.7 mg/dL (0.2-1.0); CALCIUM 9.4 mg/dL (8.5-10.3); CREATININE 1.1 mg/dL (0.4-1.0); TOTAL PROTEIN 7.3 g/dL (6.7-8.2)
== END 2018-05-12 13:00 | disposition home or self-care (01) ==
LOC: LAB 12:59
PROVIDERS: ATTEND Internal Medicine Gastroenterology
DX: R10.9 Unspecified abdominal pain (principal)
CPT/HCPCS: 36415; 80053; 83690; 85025

== ENCOUNTER 2018-06-11 22:39 | Emergency (ER) | payer MEDICARE ==
[2018-06-11 23:11] LABS: BASOPHILS % (AUTO) 0.5 %; EOSINOPHILS # (AUTO) 0.1 10^3/uL (0.0-0.7); EOSINOPHILS % (AUTO) 2.4 %; HGB - HEMOGLOBIN 11.3 g/dL (12.0-16.0); LYMPHOCYTES # (AUTO) 2.2 10^3/uL (1.5-3.5); LYMPHOCYTES % (AUTO) 36.7 %; MEAN CORPUSCULAR HEMOGLOBIN 29.2 pg (27.0-31.0); MEAN CORPUSCULAR HGB CONC 33.1 g/dL (32.0-36.0); MEAN CORPUSCULAR VOLUME 88.2 fL (81.0-99.0); MEAN PLATELET VOLUME 9.7 fL (7.9-10.8); MONOCYTES # (AUTO) 0.9 10^3/uL (0.0-1.0); MONOCYTES % (AUTO) 14.6 %; NEUTROPHILS # (AUTO) 2.8 10^3/uL (1.5-6.6); NEUTROPHILS % (AUTO) 45.8 %; PLT - PLATELET COUNT 192 10^3/uL (130-450); RED BLOOD COUNT 3.88 10^6/uL (4.20-5.40); RED CELL DISTRIBUTION WIDTH 14.2 % (12.0-15.0)
--- NOTE | 2018-06-11 23:14 | ED Physician Documentation ---
PD HPI ABD PAIN - Stated complaint Stated Complaint: ABD PAIN - Chief complaint Chief Complaint: Abd Pain - History obtained from History obtained from: Patient - History of Present Illness Timing - onset: How many days ago (3) Timing - details: Gradual onset, Waxing and waning Pain level now: 6 Quality: Cramping, Pain Location: All over / everywhere Radiation: Other (does not radiate) Improved by: Other (nothing) Worsened by: Other (no exacerbating factors) Associated symptoms: Nausea, Constipation. No: Fever, Vomiting Similar symptoms before: Diagnosis (similar symptoms with both previous episodes of constipation as well as SBO) Recently seen: Surgery (SBO 2 months ago) - Additional information Additional information: c/o 3 days of constipation. Nausea but no vomiting. Review of Systems Constitutional: denies: Fever, Chills, Sweats Cardiac: reports: Reviewed and negative Respiratory: reports: Reviewed and negative GI: reports: Abdominal Pain, Nausea, Constipation. 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, Oophrectomy - Present Medications Home Medications: Ambulatory Orders Medication Instructions Recorded Confirmed Nitroglycerin [Nitrostat] 0.4 mg SL Q5MIN PRN 03/12/14 04/18/18 Aspirin 81 mg ORAL DAILY 11/05/16 06/12/18 Gabapentin 100 mg PO BID 04/05/17 06/12/18 Multivitamin/Iron/Folic Acid 1 tab PO DAILY 04/05/17 06/12/18 [Centrum Adults Tablet] raNITIdine [Zantac] 150 mg PO BID #60 tablet 04/05/17 06/12/18 Ondansetron HCl [Zofran] 4 mg PO Q6H PRN #20 tablet 06/20/17 04/18/18 Acetaminophen [Tylenol] 1 tab PO Q8HR PRN 04/18/18 04/18/18 Atorvastatin Calcium 10 mg PO QPM 04/18/18 06/12/18 Metoprolol Succinate [Toprol Xl] 25 mg PO DAILY 04/18/18 06/12/18 Omeprazole 20 mg PO QPM 04/18/18 06/12/18 Trazodone HCl 50 mg PO QPM 04/18/18 06/12/18 clonazePAM [Clonazepam] 0.5 mg PO BID PRN 04/18/18 06/12/18 Mirtazapine 15 mg ORAL QPM #0 04/24/18 06/12/18 - Allergies Allergies/Adverse Reactions: Allergies Allergy/AdvReac Type Severity Reaction Status Date / Time No Known Drug Allergies Allergy Verified 06/11/18 22:50 - Social History Does the pt smoke?: No Smoking Status: Never smoker Does the pt drink ETOH?: No Does the pt have substance abuse?: No - Immunizations Immunizations are current?: Yes - POLST Patient has POLST: No PD ED PE NORMAL - Vitals Vital signs reviewed: Yes - General General: Alert and oriented X 3, Well developed/nourished, Other (appears uncomfortable) - Cardiac Cardiac: RRR, No murmur - Respiratory Respiratory: No respiratory distress, Clear bilaterally - Abdomen Abdomen: Normal bowel sounds, Soft, Non tender, Non distended Results - Vitals Vitals: Vital Signs - 24 hr 06/11/18 06/11/18 06/12/18 22:40 22:46 00:32 Temperature 36.8 C 36.8 C 36.5 C Heart Rate 74 74 65 Respiratory 20 20 18 Rate Blood Pressure 215/78 H 215/78 H 201/67 H O2 Saturation 100 100 98 Oxygen O2 Source Room air - Labs Labs: Laboratory Tests 06/11/18 06/11/18 06/11/18 22:55 22:55 23:35 WBC 6.0 RBC 3.88 L Hgb 11.3 L Hct 34.2 L MCV 88.2 MCH 29.2 MCHC 33.1 RDW 14.2 Plt Count 192 MPV 9.7 Neut # (Auto) 2.8 Lymph # (Auto) 2.2 [place] # (Auto) 0.9 Eos # (Auto) 0.1 Baso # (Auto) 0.0 Absolute Nucleated RBC 0.00 Nucleated RBC % 0.0 Sodium 142 Potassium 4.5 Chloride 102 Carbon Dioxide 27 Anion Gap 13.0 BUN 24 H Creatinine 1.0 Estimated GFR (MDRD) 54 L Glucose 108 H Calcium 9.4 Total Bilirubin 0.4 AST 24 ALT 14 Alkaline Phosphatase 55 Total Protein 7.9 Albumin 4.4 Globulin 3.5 Albumin/Globulin Ratio 1.3 Lipase 40 Urine Color YELLOW Urine Clarity CLEAR Urine pH 7.0 Ur Specific [place] 1.010 Urine Protein NEGATIVE Urine Glucose (UA) NEGATIVE Urine Ketones NEGATIVE Urine Occult Blood SMALL H Urine Nitrite NEGATIVE Urine Bilirubin NEGATIVE Urine Urobilinogen 0.2 (NORMAL) Ur Leukocyte Esterase NEGATIVE Urine RBC 6-10 H Urine WBC 0-3 Ur Squamous Epith Cells FEW Squamous Urine Bacteria None Seen Ur Microscopic Review INDICATED Urine Culture Comments NOT INDICATED - Rads (name of study) actue abd. xrays Radiology: Prelim report reviewed, See rad report PD MEDICAL DECISION MAKING - ED course Complexity details: reviewed results, re-evaluated patient, considered differential, d/w patient, d/w family ED course: Emir[place]-speaking only; family is here and he is translating. Patient c/o constipation, although she has also had similar symptoms with SBO. Blood tests performed and plain film xrays done. I recommended CT A/P instead of xrays, but patient feels strongly that she is simply constipated. I thus ordered xrays with the plan to admit or obtain CT if results are s/o SBO. Xrays show lg. amt. stool and do not show obvious obstruction pattern; when I went to discuss results with patient, she was just exiting the bathroom and reported that she had a very large bowel movement with relief of her symptoms. She is smiling and in NAD and is comfortable with d/c home but understands she needs to return if worse in any way. Departure - Departure Disposition: 01 Home, Self Care Clinical Impression: Constipation, Hypertension Condition: Good Instructions: ED Constipation, ED Hypertension Conf Out Of Control Discharge Date/Time: 06/12/18 00:55
[2018-06-11 23:20] LABS: ALBUMIN 4.4 g/dL (3.2-5.5); ALBUMIN/GLOBULIN RATIO 1.3 (1.0-2.2); BILIRUBIN,TOTAL 0.4 mg/dL (0.2-1.0); CALCIUM 9.4 mg/dL (8.5-10.3); TOTAL PROTEIN 7.9 g/dL (6.7-8.2)
[2018-06-11 23:50] LABS: BILIRUBIN,URINE NEGATIVE (NEGATIVE); GLUCOSE, URINE (UA) NEGATIVE (NEGATIVE); KETONES,URINE (UA) NEGATIVE (NEGATIVE); LEUKOCYTE ESTERASE, URINE NEGATIVE (NEGATIVE); NITRITE,URINE NEGATIVE (NEGATIVE); OCCULT BLOOD,URINE SMALL (NEGATIVE); PROTEIN,URINE NEGATIVE (NEGATIVE); UROBILINOGEN,URINE 0.2 (NORMAL) E.U./dL (NORMAL)
[2018-06-12 00:13] LABS: BACTERIA,URINE None Seen /HPF (None Seen); CLARITY,URINE CLEAR (CLEAR); SQUAMOUS EPITHELIAL CELL,UR FEW Squamous (<= Few)
--- NOTE | 2018-06-12 00:17 | XRAY Report ---
Reason: abd. pain Procedure Date: 06/11/2018 Accession Number: [id number] / [id number] Procedure: XR - Abdomen Acute CPT Code: FULL RESULT: EXAM: ABDOMINAL SERIES AND PA CHEST EXAM DATE: 06/11/2018 11:57 PM. CLINICAL HISTORY: Abdominal pain. COMPARISON: ABDOMEN 2 VIEW 04/21/2018 5:56 AM CHEST ANGIO (AORTA) 06/20/2017 10:48 AM ABDOMEN/PELVIS W/O 04/05/2017 10:48 AM. TECHNIQUE: 2 views abdomen and 1 view chest. FINDINGS: CHEST: Lungs/Pleura: No focal opacities. No effusion or pneumothorax. Mediastinum: Within exam limitations, cardiomediastinal contour is normal. ABDOMEN: Bowel Gas Pattern: Nonspecific bowel gas pattern without definite complete obstruction. Scattered air-fluid levels on the upright view in the right abdomen. No gross bowel wall thickening. Moderate distal stool burden. Free Air: None. Other: Old vertebral compression fractures. Atherosclerotic disease. IMPRESSION: 1. Nonspecific bowel gas pattern and bowel obstruction cannot be excluded in the proper clinical setting. If clinically indicated, CT can be considered. 2. Moderate distal stool burden. RADIA
[2018-06-12 00:43] VITALS: BP 201/67
== END 2018-06-12 00:55 | disposition home or self-care (01) ==
LOC: ED 22:39
DX: K59.00 Constipation, unspecified (principal); I10 Essential (primary) hypertension; Z87.19 Personal history of other diseases of the digestive system
CPT/HCPCS: 36415; 74022; 80053; 81001; 81003; 83690; 85025; 87086; 99283; 99284

== ENCOUNTER 2018-09-14 17:29 | Emergency (ER) | payer MEDICARE ==
[2018-09-14 18:17] LABS: BASOPHILS % (AUTO) 0.5 %; EOSINOPHILS % (AUTO) 0.7 %; HGB - HEMOGLOBIN 11.2 g/dL (12.0-16.0); LYMPHOCYTES # (AUTO) 1.7 10^3/uL (1.5-3.5); LYMPHOCYTES % (AUTO) 27.7 %; MEAN CORPUSCULAR HEMOGLOBIN 28.9 pg (27.0-31.0); MEAN CORPUSCULAR VOLUME 90.4 fL (81.0-99.0); MEAN PLATELET VOLUME 11.6 fL (7.9-10.8); MONOCYTES # (AUTO) 0.6 10^3/uL (0.0-1.0); MONOCYTES % (AUTO) 10.3 %; NEUTROPHILS # (AUTO) 3.7 10^3/uL (1.5-6.6); NEUTROPHILS % (AUTO) 60.5 %; PLT - PLATELET COUNT 208 10^3/uL (130-450); RED BLOOD COUNT 3.87 10^6/uL (4.20-5.40); RED CELL DISTRIBUTION WIDTH 12.9 % (12.0-15.0); WHITE BLOOD COUNT 6.1 x10^3/uL (4.8-10.8)
[2018-09-14] MEDS ORDERED: oxyCODONE 5 MG TABLET PO STA (18:21)
[2018-09-14 18:29] LABS: ALBUMIN 4.2 g/dL (3.2-5.5); ALBUMIN/GLOBULIN RATIO 1.4 (1.0-2.2); BILIRUBIN,TOTAL 0.5 mg/dL (0.2-1.0); CALCIUM 9.4 mg/dL (8.5-10.3); CREATININE 0.9 mg/dL (0.4-1.0); TOTAL PROTEIN 7.1 g/dL (6.7-8.2)
--- NOTE | 2018-09-14 19:21 | XRAY Report ---
Reason: fall, L rib pain Procedure Date: 09/14/2018 Accession Number: [id number] / [id number] Procedure: XR - Ribs w/PA Chest LT CPT Code: FULL RESULT: EXAM: LEFT RIB RADIOGRAPHY EXAM DATE: 09/14/2018 07:03 PM. CLINICAL HISTORY: Fall, L rib pain. COMPARISON: ABDOMEN ACUTE 06/11/2018 11:45 PM. TECHNIQUE: 1 view of the chest and 3 views of the ribs. FINDINGS: Bones: Normal. No fracture or bone lesion. A marker is placed near the lower left costochondral junction. Lungs: No focal opacities. No pneumothorax. No pleural effusions. Mediastinum: Mild cardiomegaly. Mild aortic arch calcification. Other: Mild calcification and tortuosity in the abdominal aorta. IMPRESSION: 1. No left rib fracture is identified. 2. Lungs are clear. RADIA
[2018-09-14] MEDS ORDERED: MELOXICAM 7.5 MG TABLET PO STA (19:31)
--- NOTE | 2018-09-14 19:31 | ED Physician Documentation ---
History of Present Illness - Stated complaint Stated Complaint: LT SIDE PX/NAUSEA/WEAK - Chief complaint Chief Complaint: Back Pain - History obtained from History obtained from: Patient, Family - History of Present Illness Timing: Other (4-5 months) Pain level max: 9 Pain level now: 7 - Additonal information Additional information: 78-year-old female presents to the emergency department with left-sided back pain for the past several months, has seen her doctor and had x-rays done. She fell a few days ago landing on the left ribs and now has increased pain. Worse with movement and better with rest. 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 : None HEENT: None Psych: None Musculoskeletal: Osteoarthritis Derm: None - Past Surgical History Past Surgical History: Yes General: Cholecystectomy, Hiatal hernia repair, Other Ortho: Knee replacement /[employer]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: Hysterectomy, Oophrectomy - Present Medications Home Medications: Ambulatory Orders Medication Instructions Recorded Confirmed Nitroglycerin [Nitrostat] 0.4 mg SL Q5MIN PRN 03/12/14 04/18/18 Aspirin 81 mg ORAL DAILY 11/05/16 06/12/18 Gabapentin 100 mg PO BID 04/05/17 06/12/18 Multivitamin/Iron/Folic Acid 1 tab PO DAILY 04/05/17 06/12/18 [Centrum Adults Tablet] raNITIdine [Zantac] 150 mg PO BID #60 tablet 04/05/17 06/12/18 Ondansetron HCl [Zofran] 4 mg PO Q6H PRN #20 tablet 06/20/17 04/18/18 Acetaminophen [Tylenol] 1 tab PO Q8HR PRN 04/18/18 04/18/18 Atorvastatin Calcium 10 mg PO QPM 04/18/18 06/12/18 Metoprolol Succinate [Toprol Xl] 25 mg PO DAILY 04/18/18 06/12/18 Omeprazole 20 mg PO QPM 04/18/18 06/12/18 Trazodone HCl 50 mg PO QPM 04/18/18 06/12/18 clonazePAM [Clonazepam] 0.5 mg PO BID PRN 04/18/18 06/12/18 Mirtazapine 15 mg ORAL QPM #0 04/24/18 06/12/18 Oxycodone HCl/Acetaminophen 1 tab PO Q6H PRN #14 tablet 09/14/18 [Percocet 5-325 mg Tablet] - Allergies Allergies/Adverse Reactions: Allergies Allergy/AdvReac Type Severity Reaction Status Date / Time No Known Drug Allergies Allergy Verified 06/11/18 22:50 - Social History Does the pt smoke?: No Smoking Status: Never smoker Does the pt drink ETOH?: No Does the pt have substance abuse?: No - Immunizations Immunizations are current?: Yes - POLST Patient has POLST: No PD ED PE NORMAL - Vitals Vital signs reviewed: Yes - General General: Alert and oriented X 3, No acute distress - HEENT HEENT: Atraumatic, PERRL, Ears normal, Moist mucous membranes, Pharynx benign - Neck Neck: Supple, no meningeal sign, No bony TTP - Cardiac Cardiac: RRR, Strong equal pulses - Respiratory Respiratory: No respiratory distress, Clear bilaterally - Abdomen Abdomen: Soft, Non tender, Non distended - Back Back: No spinal TTP - Derm Derm: Warm and dry - Extremities Extremities: Normal ROM s pain, Other (Tender to palpation over the left posterior ribs, approximately ribs 10 through 12. No crepitus or ecchymosis. R eproduces her pain) - Neuro Neuro: Alert and oriented X 3 Results - Vitals Vitals: Vital Signs - 24 hr 09/14/18 09/14/18 17:54 19:40 Temperature 37.1 C Heart Rate 60 54 L Respiratory 16 16 Rate Blood Pressure 170/67 H 161/64 H O2 Saturation 99 98 Oxygen O2 Source Room air - Labs Labs: Laboratory Tests 09/14/18 09/14/18 18:08 18:08 WBC 6.1 RBC 3.87 L Hgb 11.2 L Hct 35.0 L MCV 90.4 MCH 28.9 MCHC 32.0 RDW 12.9 Plt Count 208 MPV 11.6 H Neut # (Auto) 3.7 Lymph # (Auto) 1.7 [place] # (Auto) 0.6 Eos # (Auto) 0.0 Baso # (Auto) 0.0 Absolute Nucleated RBC 0.00 Nucleated RBC % 0.0 Sodium 141 Potassium 4.5 Chloride 106 Carbon Dioxide 24 Anion Gap 11.0 BUN 25 H Creatinine 0.9 Estimated GFR (MDRD) 61 L Glucose 96 Calcium 9.4 Total Bilirubin 0.5 AST 17 ALT 13 Alkaline Phosphatase 47 Total Protein 7.1 Albumin 4.2 Globulin 2.9 Albumin/Globulin Ratio 1.4 Lipase 38 - Rads (name of study) L ribs and cxr Radiology: Prelim report reviewed, EMP read contemporaneously, See rad report (No left rib fracture is identified. Lungs are clear. ) PD MEDICAL DECISION MAKING - ED course Complexity details: reviewed results, re-evaluated patient, considered differential, d/w patient, d/w family ED course: No acute findings on x-ray. Pain improved significantly with a dose of oxycodone. Will prescribe pain medication for home and follow-up with her doctor. She is well-appearing, nontoxic. Afebrile. No evidence of spinal fracture. Patient counseled regarding signs and symptoms for which I believe and urgent re-evaluation would be necessary. Patient with good understanding of and agreement to plan and is comfortable going home at this time This document was made in part using voice recognition software. While efforts are made to proofread this document, sound alike and grammatical errors may occur. Departure - Departure Disposition: 01 Home, Self Care Clinical Impression: Back pain Qualifiers: Back pain location: back pain in other location Chronicity: acute Qualified Code(s): M54.9 - Dorsalgia, unspecified Condition: Good Instructions: ED Neck Back Pain General Follow-Up: Suraj Butchre MD [Primary Care Provider] - Within 1 week Prescriptions: Oxycodone HCl/Acetaminophen [Percocet 5-325 mg Tablet] 1 tab PO Q6H PRN #14 tablet PRN Reason: pain Comments: Follow-up with your doctor for further care. Return if you worsen. Your x-ray and laboratory testing is normal tonight. Do not drink alcohol or drive while on narcotic pain medicine. Note that many narcotic pain relievers also contain tylenol/acetaminophen. Please ensure that your total dose of acetaminophen from all sources does not exceed 3 grams (3000mg) per day. You may constipated on this medication, take a stool softener such as "Colace" twice a day while you are on it. Also recommend a [id number]-[id number]-[id number] laxative such as senna or MiraLAX any day that you do not have a bowel movement. If you received narcotic pain medication in the emergency department, do not drive or operate machinery for the next 24 hours. Discharge Date/Time: 09/14/18 20:09
[2018-09-14 19:40] VITALS: BP 161/64
== END 2018-09-14 20:09 | disposition home or self-care (01) ==
LOC: ED 17:29
DX: M54.9 Dorsalgia, unspecified (principal); R07.81 Pleurodynia; W18.30XA Fall on same level, unspecified, initial encounter; I10 Essential (primary) hypertension; Z79.82 Long term (current) use of aspirin
CPT/HCPCS: 36415; 71101; 80053; 83690; 85025; 99283; 99284; A9270

== ENCOUNTER 2019-08-14 19:27 | Emergency (ER) | payer MEDICARE ==
[2019-08-14] MEDS ORDERED: HYDROmorphone 1 MG/ML CARPUJECT IVP STA ×2 (19:58→21:36)
[2019-08-14 20:04] LABS: BASOPHILS % (AUTO) 0.5 %; EOSINOPHILS % (AUTO) 0.1 %; HGB - HEMOGLOBIN 11.4 g/dL (12.0-16.0); LYMPHOCYTES # (AUTO) 0.8 10^3/uL (1.5-3.5); LYMPHOCYTES % (AUTO) 9.7 %; MEAN CORPUSCULAR HEMOGLOBIN 28.2 pg (27.0-31.0); MEAN CORPUSCULAR HGB CONC 30.2 g/dL (32.0-36.0); MEAN CORPUSCULAR VOLUME 93.3 fL (81.0-99.0); MEAN PLATELET VOLUME 11.5 fL (7.9-10.8); MONOCYTES # (AUTO) 0.1 10^3/uL (0.0-1.0); MONOCYTES % (AUTO) 1.5 %; NEUTROPHILS # (AUTO) 7.4 10^3/uL (1.5-6.6); NEUTROPHILS % (AUTO) 87.4 %; PLT - PLATELET COUNT 254 10^3/uL (130-450); RED BLOOD COUNT 4.04 10^6/uL (4.20-5.40); RED CELL DISTRIBUTION WIDTH 13.1 % (12.0-15.0); WHITE BLOOD COUNT 8.5 x10^3/uL (4.8-10.8)
--- NOTE | 2019-08-14 20:07 | ED Physician Documentation ---
History of Present Illness - Stated complaint Stated Complaint: LT THIGH & L RIB CAGE PAIN,FALL - Chief complaint Chief Complaint: Trauma Ch/Bk - History obtained from History obtained from: Patient, Family - History of Present Illness Timing: Today, How many hours ago (1) Pain level max: 8 Pain level now: 8 - Additonal information Additional information: 79-year-old female presents to the emergency department after a mechanical trip and fall in the bathroom today. She was pinned between the toilet and the door. She complains of pain to the left thigh, left hip and left rib cage. Did not strike her head. No loss of consciousness. No vomiting. Worse with movement and better with rest. Has history of a left knee replacement several years ago. No neck or back pain. No headache. Review of Systems Constitutional: denies: Fever, Chills Nose: denies: Rhinorrhea / runny nose, Congestion Respiratory: denies: Cough : denies: Dysuria Skin: denies: Rash Musculoskeletal: denies: Neck pain, Back pain Neurologic: denies: Headache PD PAST MEDICAL HISTORY - Past Medical History Past Medical History: Yes Cardiovascular: Hypertension, High cholesterol, Angina Respiratory: None Endocrine/Autoimmune: None GI: GERD, Ulcers, Diverticulitis DESIGN TECHNICIAN: None : None HEENT: None Psych: None Musculoskeletal: Osteoarthritis Derm: None - Past Surgical History Past Surgical History: Yes General: Cholecystectomy, Hiatal hernia repair, Other Ortho: Knee replacement /DESIGN TECHNICIAN: Hysterectomy, Oophrectomy - Present Medications Home Medications: Ambulatory Orders Medication Instructions Recorded Confirmed Nitroglycerin [Nitrostat] 0.4 mg SL Q5MIN PRN 03/12/14 04/18/18 Aspirin 81 mg ORAL DAILY 11/05/16 06/12/18 Gabapentin 100 mg PO BID 04/05/17 06/12/18 Multivitamin/Iron/Folic Acid 1 tab PO DAILY 04/05/17 06/12/18 [Centrum Adults Tablet] raNITIdine [Zantac] 150 mg PO BID #60 tablet 04/05/17 06/12/18 Ondansetron HCl [Zofran] 4 mg PO Q6H PRN #20 tablet 06/20/17 04/18/18 Acetaminophen [Tylenol] 1 tab PO Q8HR PRN 04/18/18 04/18/18 Atorvastatin Calcium 10 mg PO QPM 04/18/18 06/12/18 Metoprolol Succinate [Toprol Xl] 25 mg PO DAILY 04/18/18 06/12/18 Omeprazole 20 mg PO QPM 04/18/18 06/12/18 Trazodone HCl 50 mg PO QPM 04/18/18 06/12/18 clonazePAM [Clonazepam] 0.5 mg PO BID PRN 04/18/18 06/12/18 Mirtazapine 15 mg ORAL QPM #0 04/24/18 06/12/18 Oxycodone HCl/Acetaminophen 1 tab PO Q6H PRN #14 tablet 09/14/18 [Percocet 5-325 mg Tablet] - Allergies Allergies/Adverse Reactions: Allergies Allergy/AdvReac Type Severity Reaction Status Date / Time No Known Drug Allergies Allergy Verified 08/14/19 19:42 - Social History Does the pt smoke?: No Smoking Status: Never smoker Does the pt drink ETOH?: No Does the pt have substance abuse?: No - Immunizations Immunizations are current?: Yes - POLST Patient has POLST: No PD ED PE NORMAL - Vitals Vital signs reviewed: Yes - General General: Alert and oriented X 3, No acute distress, Well developed/nourished - HEENT HEENT: Atraumatic, PERRL, Ears normal, Moist mucous membranes - Neck Neck: Supple, no meningeal sign, No bony TTP - Cardiac Cardiac: RRR, Strong equal pulses - Respiratory Respiratory: No respiratory distress, Clear bilaterally - Abdomen Abdomen: Soft, Non tender, Non distended - Back Back: No spinal TTP - Derm Derm: Warm and dry - Extremities Extremities: Other (Tender to palpation over the left hip, left femur and left knee. Swelling present at the left knee. History of a knee replacement in the past. Neurovascularly intact. She is also tender to palpation over the left ribs, mid and anterior axillary line approximately ribs 5 through 8. 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, No motor deficit, No sensory deficit, Normal speech Eye Opening: Spontaneous Motor: Obeys Commands Verbal: Oriented GCS Score: 15 - Psych Psych: Normal mood, Normal affect Results - Vitals Vitals: Vital Signs - 24 hr 08/14/19 08/14/19 19:30 19:44 Temperature 36.7 C 36.7 C Heart Rate 75 75 Respiratory 20 20 Rate Blood Pressure 163/62 H 163/62 H O2 Saturation 100 100 Oxygen O2 Source Room air - Labs Labs: Laboratory Tests 08/14/19 08/14/19 19:35 19:35 WBC 8.5 RBC 4.04 L Hgb 11.4 L Hct 37.7 MCV 93.3 MCH 28.2 MCHC 30.2 L RDW 13.1 Plt Count 254 MPV 11.5 H Neut # (Auto) 7.4 H Lymph # (Auto) 0.8 L [place] # (Auto) 0.1 Eos # (Auto) 0.0 Baso # (Auto) 0.0 Absolute Nucleated RBC 0.00 Nucleated RBC % 0.0 Sodium 140 Potassium 4.6 Chloride 104 Carbon Dioxide 24 Anion Gap 12.0 BUN 52 H Creatinine 1.3 H Estimated GFR (MDRD) 40 L Glucose 282 H Calcium 8.8 - Rads (name of study) chest CT w/o Radiology: Prelim report reviewed, EMP read contemporaneously, See rad report (no acute findings.) L hip xray Radiology: Prelim report reviewed, EMP read contemporaneously, See rad report (Osteopenia. No hip fracture identified. Consider further evaluation with CT pelvis if concern for occult fracture. ) L femur xray Radiology: Prelim report reviewed, EMP read contemporaneously, See rad report (Comminuted fracture of the distal left femoral metaphysis above the knee arthroplasty. ) L knee xray Radiology: Prelim report reviewed, EMP read contemporaneously, See rad report (No dislocation of the left knee total arthroplasty. Fracture of the distal femoral metaphysis. ) Procedures - Splint (location) L leg Splint applied by: Physician, Tech Type of splint: Fiberglass, Long leg, Posterior Other: Patient tolerated well, No complications, Neurovascular intact PD MEDICAL DECISION MAKING - ED course Complexity details: reviewed results, re-evaluated patient, considered differential, d/w patient, d/w labor relations consultant ED course: 79-year-old female presents to the emergency department after a trip and fall in the bathroom tonight. She has a fracture of the distal leftDiscussed the case with orthopedics on-call here, they recommend transfer to [place]. She had her original knee replacement done at the [facility] in 2013. above her total knee arthroplasty. Neurovascularly intact. Placed in a long-leg splint. Patient also has left rib pain, CT scan performed, no rib fractures found pneumothorax or hemothorax. Patient will be transferred to [facility] for further care. Patient will be transferred to [facility] for further care. Graciously accepted in transfer by Dr. Bustos from orthopedics and Dr. Silva when the emergency department. COBRA forms completed. 5. This document was made in part using voice recognition software. While efforts are made to proofread this document, sound alike and grammatical errors may occur. Departure - Departure Disposition: 02 Transfer Acute Care Hosp Clinical Impression: Fracture, femur, distal Qualifiers: Encounter type: initial encounter Fracture type: closed Fracture morphology: unspecified fracture morphology Laterality: left Qualified Code(s): S72.402A - Unspecified fracture of lower end of left femur, initial encounter for closed fracture Condition: Stable
[2019-08-14 20:10] LABS: CALCIUM 8.8 mg/dL (8.5-10.3); CREATININE 1.3 mg/dL (0.4-1.0)
--- NOTE | 2019-08-14 20:53 | CT Report ---
Reason: fall, L rib pain, unable to stand Procedure Date: 08/14/2019 Accession Number: [id number] / [id number] Procedure: CT - CHEST WO CPT Code: Final Report FULL RESULT: PROCEDURE: CHEST WO INDICATIONS: fall, L rib pain, unable to stand TECHNIQUE: Noncontrast 5 mm thick sections acquired from the pulmonary apices to the posterior costophrenic angles. 7 mm thick coronal and sagittal MIP reformats were then acquired. For radiation dose reduction, the following was used: automated exposure control, adjustment of mA and/or kV according to patient size. COMPARISON: CXR and rib radiographs 09/14/2018. CT pulmonary angiogram 06/20/2017. FINDINGS: Image quality: Excellent. Lungs and pleura: No acute air space opacities. Right middle lobe pulmonary nodule measuring 7 mm, (08/29), unchanged since 2018. Punctate pulmonary nodules in the left upper lobe inferiorly, also unchanged. No pleural effusions or pneumothorax. Central and peripheral airways are patent and normal in caliber. Mediastinum: Heart size is normal. No pericardial effusion. No mediastinal adenopathy by size criteria. Thoracic aorta and central pulmonary arteries are normal in size. Esophagus is normal in caliber. Small hiatal hernia. Bones and chest wall: No suspicious bony lesions. T4 intraosseous hemangioma. No vertebral body compression fractures. No rib fractures demonstrated. Kyphoscoliosis. No axillary or supraclavicular adenopathy by size criteria. Probable right thyroid nodule. Abdomen: Visualized upper abdominal solid organs and bowel loops appear normal in the absence of contrast. Well-circumscribed hypodensity in the left lobe of the liver is unchanged since 2018 and most likely represents a cyst or hemangioma. IMPRESSION: 1. No rib fractures demonstrated. No hemothorax or contusion demonstrated. 2. Right middle lobe pulmonary nodule measuring 7 mm which is unchanged since 2018 suggesting a benign etiology. Reviewed by: Baldomero Crawford MD on 08/14/2019 8:51 PM PDT Approved by: Baldomero Crawford MD on 08/14/2019 8:51 PM PDT Station ID: [id number]
--- NOTE | 2019-08-14 20:54 | XRAY Report ---
Reason: fall, L hip pain Procedure Date: 08/14/2019 Accession Number: [id number] / [id number] Procedure: XR - Hip w/Pelvis 2-3V LT CPT Code: Final Report FULL RESULT: PROCEDURE: Hip w/Pelvis 2-3V LT INDICATIONS: fall, L hip pain TECHNIQUE: AP pelvis with lateral view(s) of the bilateral hip(s). COMPARISON: None. FINDINGS: Bones: Osteopenia. No fracture identified. No dislocations. Pelvic ring appears intact. No suspicious bony lesions. Soft tissues: The visualized bowel gas pattern is normal. No suspicious soft tissue calcifications. IMPRESSION: Osteopenia. No hip fracture identified. Consider further evaluation with CT pelvis if concern for occult fracture. Reviewed by: Baldomero Crawford MD on 08/14/2019 8:53 PM PDT Approved by: Baldomero Crawford MD on 08/14/2019 8:53 PM PDT Station ID: [id number]
--- NOTE | 2019-08-14 21:07 | XRAY Report ---
Reason: fall, L thigh pain Procedure Date: 08/14/2019 Accession Number: [id number] / [id number] Procedure: XR - Femur 2V LT CPT Code: Final Report FULL RESULT: PROCEDURE: Femur 2V LT INDICATIONS: fall, L thigh pain TECHNIQUE: 4 views of the femur were acquired. COMPARISON: None. FINDINGS: Bones: Comminuted fracture of the distal femoral metaphysis just proximal to the total knee arthroplasty. There is mild anterior lateral displacement of the femoral shaft. No suspicious bony lesions. Soft tissues: No suspicious soft tissue calcifications or masses. IMPRESSION: Comminuted fracture of the distal left femoral metaphysis above the knee arthroplasty. Reviewed by: Baldomero Crawford MD on 08/14/2019 9:06 PM PDT Approved by: Baldomero Crawford MD on 08/14/2019 9:06 PM PDT Station ID: [id number]
--- NOTE | 2019-08-14 21:10 | XRAY Report ---
Reason: L knee pain s/p fall Procedure Date: 08/14/2019 Accession Number: [id number] / [id number] Procedure: XR - Knee 2 View LT CPT Code: Final Report FULL RESULT: PROCEDURE: Knee 2 View LT INDICATIONS: L knee pain s/p fall TECHNIQUE: 2 views of the left knee(s) were acquired. COMPARISON: Left femoral shaft radiographs also performed today. FINDINGS: Bones: Fracture of the distal left femur. The femoral component of the knee arthroplasty is located in the expected position. No lucency surrounding the tibial stem. No dislocation. No suspicious bony lesions. Soft tissues: Trace joint effusion. No suspicious soft tissue calcifications. IMPRESSION: No dislocation of the left knee total arthroplasty. Fracture of the distal femoral metaphysis. Reviewed by: Baldomero Crawford MD on 08/14/2019 9:08 PM PDT Approved by: Baldomero Crawford MD on 08/14/2019 9:08 PM PDT Station ID: [id number]
[2019-08-14 22:24] VITALS: BP 173/61
== END 2019-08-14 23:05 | disposition short-term general hospital (02) ==
LOC: ED 19:27
DX: S72.492A Other fracture of lower end of left femur, initial encounter for closed fracture (principal); M25.552 Pain in left hip; R07.81 Pleurodynia; W01.0XXA Fall on same level from slipping, tripping and stumbling without subsequent striking against object, initial encounter; Y92.002 Bathroom of unspecified non-institutional (private) residence as the place of occurrence of the external cause; Z96.652 Presence of left artificial knee joint; M85.88 Other specified disorders of bone density and structure, other site; R91.1 Solitary pulmonary nodule; I10 Essential (primary) hypertension; Z79.82 Long term (current) use of aspirin
CPT/HCPCS: 29505; 36415; 71250; 73502; 73552; 73560; 80048; 85025; 96374; 96376; 99284; 99285; J1170

== ENCOUNTER 2019-08-14 23:06 | Outpatient (CLI) | payer MEDICARE | END 2019-08-14 23:07 | disposition short-term general hospital (02) | LOC: EMS 23:06 | PROVIDERS: ATTEND Surgery | DX: S72.92XA Unspecified fracture of left femur, initial encounter for closed fracture (principal); W18.30XA Fall on same level, unspecified, initial encounter | CPT/HCPCS: A0425; A0426 ==

== ENCOUNTER 2019-08-26 16:12 | Outpatient (CLI) | payer MEDICARE ==
[2019-08-26 18:31] LABS: CALCIUM 8.5 mg/dL (8.5-10.3); CREATININE 0.9 mg/dL (0.4-1.0)
[2019-08-26 19:29] LABS: BASOPHILS % (AUTO) 0.4 %; EOSINOPHILS # (AUTO) 0.1 10^3/uL (0.0-0.7); EOSINOPHILS % (AUTO) 1.4 %; HGB - HEMOGLOBIN 9.5 g/dL (12.0-16.0); LYMPHOCYTES # (AUTO) 1.4 10^3/uL (1.5-3.5); LYMPHOCYTES % (AUTO) 13.6 %; MEAN CORPUSCULAR HEMOGLOBIN 31.5 pg (27.0-31.0); MEAN CORPUSCULAR VOLUME 98.3 fL (81.0-99.0); MEAN PLATELET VOLUME 11.1 fL (7.9-10.8); MONOCYTES # (AUTO) 1.1 10^3/uL (0.0-1.0); MONOCYTES % (AUTO) 11.3 %; NEUTROPHILS # (AUTO) 7.2 10^3/uL (1.5-6.6); NEUTROPHILS % (AUTO) 71.8 %; PLT - PLATELET COUNT 445 10^3/uL (130-450); RED BLOOD COUNT 3.02 10^6/uL (4.20-5.40); RED CELL DISTRIBUTION WIDTH 15.1 % (12.0-15.0)
== END 2019-08-26 23:59 | disposition home or self-care (01) ==
LOC: LAB.R 16:12
DX: S72.402D Unspecified fracture of lower end of left femur, subsequent encounter for closed fracture with routine healing (principal); D64.9 Anemia, unspecified
CPT/HCPCS: 80048; 85025

== ENCOUNTER 2019-08-26 17:03 | Outpatient (CLI) | payer MEDICARE ==
--- NOTE | 2019-08-27 09:54 | XRAY Report ---
PROCEDURE: Chest 2 View X-Ray INDICATIONS: R L ADVENTITIOUS BREATH SOUNDS TECHNIQUE: 2 view(s) of the chest. COMPARISON: 04/21/2018. FINDINGS: Surgical changes and devices: None. Lungs and pleura: No pleural effusions or pneumothorax. Lungs are clear. Mediastinum: Tortuous thoracic aorta is seen with aortic arch calcifications. Heart size is enlarged. Bones and chest wall: No suspicious bony abnormalities. Soft tissues appear unremarkable. IMPRESSION: No acute cardiopulmonary pathology. Reviewed by: Adrian Last MD on 08/27/2019 9:53 AM PDT Approved by: Adrian Last MD on 08/27/2019 9:53 AM PDT Station ID: [id number]
== END 2019-08-26 17:04 | disposition home or self-care (01) ==
LOC: DI 17:03
PROVIDERS: ATTEND Nurse Practitioner
DX: R09.89 Other specified symptoms and signs involving the circulatory and respiratory systems (principal)
CPT/HCPCS: 71046

== ENCOUNTER 2019-08-28 13:03 | Outpatient (CLI) | payer MEDICARE ==
[2019-08-28 19:33] LABS: BILIRUBIN,URINE NEGATIVE (NEGATIVE); CLARITY,URINE CLEAR (CLEAR); GLUCOSE, URINE (UA) NEGATIVE (NEGATIVE); KETONES,URINE (UA) NEGATIVE (NEGATIVE); LEUKOCYTE ESTERASE, URINE NEGATIVE (NEGATIVE); NITRITE,URINE NEGATIVE (NEGATIVE); OCCULT BLOOD,URINE TRACE-INTA (NEGATIVE); PROTEIN,URINE NEGATIVE (NEGATIVE); UROBILINOGEN,URINE 0.2 (NORMAL) E.U./dL (NORMAL)
== END 2019-08-28 23:59 | disposition home or self-care (01) ==
LOC: LAB.R 13:03
PROVIDERS: ATTEND Family Medicine
DX: R82.90 Unspecified abnormal findings in urine (principal)
CPT/HCPCS: 81001; 81003; 87086

== ENCOUNTER 2019-08-30 17:31 | Outpatient (CLI) | payer MEDICARE ==
[2019-08-30 19:25] LABS: BASOPHILS % (AUTO) 0.4 %; EOSINOPHILS # (AUTO) 0.1 10^3/uL (0.0-0.7); EOSINOPHILS % (AUTO) 0.7 %; HGB - HEMOGLOBIN 9.5 g/dL (12.0-16.0); LYMPHOCYTES # (AUTO) 1.1 10^3/uL (1.5-3.5); LYMPHOCYTES % (AUTO) 15.7 %; MEAN CORPUSCULAR HEMOGLOBIN 31.4 pg (27.0-31.0); MONOCYTES # (AUTO) 0.8 10^3/uL (0.0-1.0); MONOCYTES % (AUTO) 11.2 %; NEUTROPHILS # (AUTO) 4.8 10^3/uL (1.5-6.6); NEUTROPHILS % (AUTO) 71.4 %; PLT - PLATELET COUNT 401 10^3/uL (130-450); RED BLOOD COUNT 3.03 10^6/uL (4.20-5.40); RED CELL DISTRIBUTION WIDTH 15.6 % (12.0-15.0); WHITE BLOOD COUNT 6.8 x10^3/uL (4.8-10.8)
== END 2019-08-30 23:59 | disposition home or self-care (01) ==
LOC: LAB.R 17:31
PROVIDERS: ATTEND Family Medicine
DX: I26.99 Other pulmonary embolism without acute cor pulmonale (principal); M25.462 Effusion, left knee; I50.20 Unspecified systolic (congestive) heart failure
CPT/HCPCS: 85025; 85651; 85730

== ENCOUNTER 2019-09-05 19:30 | Outpatient (CLI) | payer MEDICARE ==
[2019-09-05 20:27] LABS: BASOPHILS % (AUTO) 0.4 %; EOSINOPHILS # (AUTO) 0.1 10^3/uL (0.0-0.7); EOSINOPHILS % (AUTO) 1.1 %; HGB - HEMOGLOBIN 10.5 g/dL (12.0-16.0); LYMPHOCYTES # (AUTO) 1.4 10^3/uL (1.5-3.5); MEAN CORPUSCULAR HEMOGLOBIN 31.8 pg (27.0-31.0); MEAN CORPUSCULAR HGB CONC 31.8 g/dL (32.0-36.0); MEAN PLATELET VOLUME 11.1 fL (7.9-10.8); MONOCYTES # (AUTO) 0.8 10^3/uL (0.0-1.0); MONOCYTES % (AUTO) 14.2 %; NEUTROPHILS # (AUTO) 3.4 10^3/uL (1.5-6.6); NEUTROPHILS % (AUTO) 59.8 %; PLT - PLATELET COUNT 306 10^3/uL (130-450); RED CELL DISTRIBUTION WIDTH 15.1 % (12.0-15.0); WHITE BLOOD COUNT 5.7 x10^3/uL (4.8-10.8)
== END 2019-09-05 23:59 | disposition home or self-care (01) ==
LOC: LAB.R 19:30
DX: D64.9 Anemia, unspecified (principal)
CPT/HCPCS: 85025

== ENCOUNTER 2019-09-22 11:27 | Outpatient (CLI) | payer MEDICARE ==
--- NOTE | 2019-09-22 13:18 | XRAY Report ---
PROCEDURE: Femur 2V LT INDICATIONS: CLOSED BICONDYLAR FX OF DISTAL FEMUR,LEFT TECHNIQUE: 2 views of the femur were acquired. COMPARISON: Xray Femur 08/14/19 FINDINGS: Bones: ORIF of the distal femur as well as knee arthroplasty is present. Hardware appears intact wit hout evidence of fracture or periprosthetic loosening. Fracture lucencies persist. There is good timmy omic alignment. No suspicious bony lesions. Soft tissues: No suspicious soft tissue calcifications or masses. IMPRESSION: ORIF of distal femoral fracture as above. Reviewed by: Kinsey Trinh MD on 09/22/2019 1:17 PM PDT Approved by: Kinsey Trinh MD on 09/22/2019 1:17 PM PDT Station ID: [id number]
== END 2019-09-22 11:28 | disposition home or self-care (01) ==
LOC: DI 11:27
PROVIDERS: ATTEND Registered Nurse
DX: S72.422D Displaced fracture of lateral condyle of left femur, subsequent encounter for closed fracture with routine healing (principal); S72.432D Displaced fracture of medial condyle of left femur, subsequent encounter for closed fracture with routine healing